=== PATIENT | female | born 1945 | race American Indian/Alaskan Native ===

== ENCOUNTER 2019-02-04 07:12 | Day surgery (SDC) | payer MEDICARE ==
[2019-02-04 08:24] LABS: INR 1.14 (0.87-1.13)
[2019-02-04 08:25] LABS: Partial Thromboplastin Time 24.7 Sec. (24.2-36.6)
[2019-02-04] MEDS ORDERED: XYLOCAINE 1% 20 mL ONE (10:16)
[2019-02-04 13:46] VITALS: BP 121/64
--- NOTE | 2019-02-04 14:13 | Ultrasound Report ---
ULTRASOUND-GUIDED PARACENTESIS INDICATION: Recurrent ascites Procedure was discussed and advanced with the patient including possible risks and benefits. Patient has had the procedure several times in the past. Patient is not on anticoagulant therapy and has no p ertinent allergies. Timeout was performed. Sonography was used to localize a suitable pocket of ascites in the right lower quadrant. Under local anesthesia and aseptic technique, this collection was accessed using a 5 [place] Yueh catheter. 4600 cc of clear yellowish ascitic fluid were withdrawn by vacuum aspiration. The catheter was removed and the site was secured. Patient tolerated the procedure well and left the department in good condition . IMPRESSION: Successful ultrasound-guided paracentesis Signer Name: Lino Mcadams MD Signed: 02/04/2019 2:08 PM Workstation Name: [id number]
== END 2019-02-04 13:30 | disposition home or self-care (01) ==
LOC: CATHLABREC 07:12 → EDSTATUS 07:30 → CATHLABREC 13:30
PROVIDERS: ATTEND Internal Medicine Gastroenterology
CPT/HCPCS: 36415; 49083; 85610; 85730

== ENCOUNTER 2019-02-09 10:07 | Emergency (ER) | payer MEDICARE ==
[2019-02-09 10:33] LABS: Basophils % (Auto) 0.7 % (0.0-1.8); Eosinophils % (Auto) 0.2 % (0.0-4.3); Hematocrit 37.2 % (30.3-42.9); Lymphocytes # (Auto) 0.9 K/mm3 (1.2-5.4); Lymphocytes % (Auto) 12.7 % (13.4-35.0); Mean Corpuscular HGB Conc 35 % (30-34); Mean Corpuscular Volume 105 fl (79-97); Monocytes # (Auto) 0.9 K/mm3 (0.0-0.8); Monocytes % (Auto) 12.4 % (0.0-7.3); Red Blood Count 3.56 M/mm3 (3.65-5.03); Red Cell Distribution Width 11.9 % (13.2-15.2)
[2019-02-09 10:37] LABS: Platelet Count 97 K/mm3 (140-440)
[2019-02-09] MEDS ORDERED: ZOFRAN IV ONE (10:37)
[2019-02-09] MEDS ORDERED: MORPHINE IV ONE (10:37)
[2019-02-09 11:02] LABS: INR 1.15 (0.87-1.13)
[2019-02-09 11:03] LABS: Alanine Aminotransferase 534 units/L (7-56); Albumin 2.9 g/dL (3.9-5); BUN/Creatinine Ratio 14; Blood Urea Nitrogen 11 mg/dL (7-17); Calcium 9.2 mg/dL (8.4-10.2); Hemolysis Index 50
[2019-02-09 11:03] LABS: Partial Thromboplastin Time 26.7 Sec. (24.2-36.6)
--- NOTE | 2019-02-09 11:03 | Emergency Department Report ---
ED Abdominal Pain HPI - General Chief Complaint: Abdominal Pain Stated Complaint: DOC ORDERED/PAIN ALL OVER Time Seen by Provider: 02/09/19 10:58 Source: patient Mode of arrival: Ambulatory Limitations: No Limitations - History of Present Illness Initial Comments: 73-year-old female with a past medical history of hepatitis C, liver cirrhosis, and umbilical hernia repair presents to the hospital with complaints of progressively worsening abdominal pain since paracentesis performed on 02/04/2019. Patient had a paracentesis performed here 5 days ago and 4600 mL of peritoneal fluid removed. Patient states she did not receive albumin and thinks that may be the cause of her pain. Patient reports the next day she developed epigastric cramping that has progressively worsened for the past 4 days. Pain is intermittent, 9/10 in intensity, and worse with palpation. No alleviating factors Cortaid. She denies nausea, vomiting, diarrhea, dysuria, fever, melena, hematochezia. She had a small bowel movement this a.m. PMD: Dr. Camargo who recently (she has not yet found a new PMD). GI doctor: Dr. Estes - Related Data Home Medications Medication Instructions Recorded Confirmed Last Taken Aspirin [Baby Aspirin] 162 mg PO QDAY 08/07/13 02/04/19 02/02/19 Atenolol [Tenormin] 25 mg PO DAILY 08/07/13 02/04/19 02/02/19 Folic Acid/Vit B Complex and C 400 mcg PO DAILY 08/07/13 02/04/19 02/02/19 [B-Complex with Vit C Caplet] Furosemide [Lasix] 20 mg PO DAILY 08/07/13 02/04/19 02/03/19 Spironolactone [Aldactone] 50 mg PO QDAY 08/07/13 02/04/19 08/06/13 Previous Rx's Medication Instructions Recorded Last Taken Type traMADol [Ultram 50 MG tab] 50 mg PO Q6HR PRN #20 tablet 02/09/19 Unknown Rx Allergies Allergy/AdvReac Type Severity Reaction Status Date / Time Sulfa (Sulfonamide Allergy Unknown Verified 08/07/13 09:05 Antibiotics) ED Review of Systems ROS: Stated complaint: DOC ORDERED/PAIN ALL OVER Other details as noted in HPI Comment: All other systems reviewed and negative ED Past Medical Hx - Past Medical History Previous Medical History?: Yes Hx Hypertension: No Hx Heart Attack/AMI: No Hx Congestive Heart Failure: No Hx Diabetes: No Hx Liver Disease: Yes (hepatitis c and ascites) Hx Asthma: No Hx COPD: No Hx HIV: No Additional medical history: atrial fib. - Surgical History Past Surgical History?: Yes Additional Surgical History: hernia repair - Social History Smoking Status: Former Smoker Substance Use Type: None - Medications Home Medications: Home Medications Medication Instructions Recorded Confirmed Last Taken Type Aspirin [Baby Aspirin] 162 mg PO QDAY 08/07/13 02/04/19 02/02/19 History Atenolol [Tenormin] 25 mg PO DAILY 08/07/13 02/04/19 02/02/19 History Folic Acid/Vit B Complex and C 400 mcg PO DAILY 08/07/13 02/04/19 02/02/19 History [B-Complex with Vit C Caplet] Furosemide [Lasix] 20 mg PO DAILY 08/07/13 02/04/19 02/03/19 History Spironolactone [Aldactone] 50 mg PO QDAY 08/07/13 02/04/19 08/06/13 History traMADol [Ultram 50 MG tab] 50 mg PO Q6HR PRN #20 tablet 02/09/19 Unknown Rx ED Physical Exam - General Limitations: No Limitations - Other Other exam information: General: No limitations, patient is alert in no acute distress Head exam: Atraumatic, normocephalic Eyes exam: Normal appearance ENT: Moist mucous membrane Neck exam: Normal inspection, full range of motion, no meningismus nontender Respiratory exam: Clear to auscultation bilateral, no wheezes, rales, crackles Cardiovascular: Normal rate and rhythm, normal heart sounds Abdomen: Soft, just to the right of the epigastric area there is a tender subcutaneous nodule versus hernia on palpation that reproduces patient's pain during palpation, with normal bowel sounds, no rebound, or guarding. Midline vertical abd scar from previous umbilical hernia surgery Extremity: Full range of motion normal inspection no deformity, no edema Back: Normal Inspection, full range of motion, no tenderness Neurologic: Alert, oriented x3, cranial nerves intact, no motor or sensory deficit Psychiatric: normal affect, normal mood Skin: Warm, dry, intact ED Course Vital Signs 02/09/19 02/09/19 10:12 11:04 Temperature 99.4 F Pulse Rate 92 H Respiratory 16 22 Rate Blood Pressure 148/85 O2 Sat by Pulse 99 97 Oximetry - Consultations Consultation #1: 02/09/19 13:0 This case was discussed with GI doctor Dr. Mejía who was able to review P my records. Patient was admitted to [facility] early January 16 after presenting for abdominal distention and ascites. Patient did receive paracentesis, and CT scan showed liver lesions at the time. A she received in-house oncology consult with recommended inpatient MRI. Patient declined inpatient MRI and never follow-up for her one-week appointment. She was also referred to the hepatocellular cl inic at [facility] for specialized care. It is documented in the medical record that the clinic has repeatedly reach out to the patient and noted to schedule an appointment and MRI. Patient was out of town and never gave a timeline to schedule an appointment for follow-up. Josef Mejía recommends the patient continue outpatient follow-up Patient admits that she refuses inpatient MRI and has not followed up like she was directed. She has all the contact information for her referral. She was encouraged to contact them on Monday to begin a workup for possible hepatocellular cancer. Tramadol will be prescribed for pain. She declined repeated offers for pain medication in the ED stating that pain is mild at this time. ED Medical Decision Making - Lab Data Result diagrams: 02/09/19 10:20 02/09/19 10:20 Lab Results 02/09/19 02/09/19 02/09/19 Range/Units 10:20 10:20 10:34 WBC 7.0 (4.5-11.0) K/mm3 RBC 3.56 L (3.65-5.03) M/mm3 Hgb 13.0 (10.1-14.3) gm/dl Hct 37.2 (30.3-42.9) % MCV 105 H (79-97) fl MCH 37 H (28-32) pg MCHC 35 H (30-34) % RDW 11.9 L (13.2-15.2) % Plt Count 97 L (140-440) K/mm3 Lymph % (Auto) 12.7 L (13.4-35.0) % [place] % (Auto) 12.4 H (0.0-7.3) % Eos % (Auto) 0.2 (0.0-4.3) % Baso % (Auto) 0.7 (0.0-1.8) % Lymph # 0.9 L (1.2-5.4) K/mm3 [place] # 0.9 H (0.0-0.8) K/mm3 Eos # 0.0 (0.0-0.4) K/mm3 Baso # 0.0 (0.0-0.1) K/mm3 Seg Neutrophils % 74.0 H (40.0-70.0) % Seg Neutrophils # 5.2 (1.8-7.7) K/mm3 PT 14.4 (12.2-14.9) Sec. INR 1.15 H (0.87-1.13) APTT 26.7 (24.2-36.6) Sec. Sodium 133 L (137-145) mmol/L Potassium 4.8 (3.6-5.0) mmol/L Chloride 99.5 (98-107) mmol/L Carbon Dioxide 24 (22-30) mmol/L Anion Gap 14 mmol/L BUN 11 (7-17) mg/dL Creatinine 0.8 (0.7-1.2) mg/dL Estimated GFR > 60 ml/min BUN/Creatinine Ratio 14 % Glucose 219 H (65-100) mg/dL Calcium 9.2 (8.4-10.2) mg/dL Total Bilirubin 2.00 H (0.1-1.2) mg/dL AST 461 H (5-40) units/L ALT 534 H (7-56) units/L Alkaline Phosphatase 113 (35-129) units/L Total Protein 6.7 (6.3-8.2) g/dL Albumin 2.9 L (3.9-5) g/dL Albumin/Globulin Ratio 0.8 % Lipase 126 H (13-60) units/L - Radiology Data Radiology results: report reviewed CT ABDOMEN AND PELVIS WITH IV CONTRAST, 02/09/2019 INDICATION: Generalized abdominal pain and ascites. TECHNIQUE: Following the administration of intravenous contrast, multiple axial CT images of the abdomen and pelvis were acquired. Sagittal and coronal reformats were obtained. All CT performed at this facility utilize dose reduction techniques including automated exposure control, iterative reconstruction and weight based dosing when appropriate to reduce patient radiation dose to as low as reasonably achievable. COMPARISON: The patient's prior CT of the abdomen and pelvis was unable to be retrieved from the archives for review. Therefore, no prior studies are available for comparison. FINDINGS: Limited imaging of the bilateral lung bases demonstrates a pleural-based mass at the right lateral lung base measuring 3.5 cm. Abdomen: The liver has a diffusely nodular, irregular cirrhotic configuration with innumerable hypodense regions throughout large volume ascites is present throughout the abdomen. The spleen is enlarged. The gallbladder appears within normal limits. The pancreas appears grossly normal. Bilateral adrenal glands and bilateral kidneys show no definitive evidence of acute abnormality. There is no definitive evidence for bowel obstruction. There is dense atherosclerotic calcification along the abdominal aorta without evidence for aneurysm. Pelvis: Large volume ascites is seen within the pelvis. The uterus contains multiple calcified fibroids. The urinary bladder appears grossly normal. Review of bony structures shows no evidence of acute bony abnormality. There are degenerative changes throughout the lumbar spine. IMPRESSION: 1. Large-volume abdominopelvic ascites. 2. Cirrhotic configuration with the liver with innumerable low density lesions. It would be difficult to exclude the possibility of an infiltrative process such as hepatocellular carcinoma. No prior studies were available for comparison at the time of my review. Please correlate with any prior imaging and patient's clinical information. 3. Splenomegaly. 4. Pleural-based right lung mass. - Medical Decision Making CT concerning for hepatocellular carcinoma. This was identified earlier this month the patient has not followed up to complete her outpatient workup. She has resources that were provided from her previous admission at [facility]. She was encouraged to contact the hepatocellular clinic in [facility] tomorrow to schedule an appointment to continue her workup. Tramadol provided for pain. - Differential Diagnosis hernia, subcutaneous nodule, biliary colic, PUD, infection Critical Care Time: No Critical care attestation.: If time is entered above; I have spent that time in minutes in the direct care of this critically ill patient, excluding procedure time. ED Disposition Clinical Impression: Liver masses, Hepatitis C, Cirrhosis, Ascites Disposition: - TO HOME OR SELFCARE Is pt being admited?: No Does the pt Need Aspirin: No Condition: Stable Instructions: Ascites (ED), Cirrhosis (ED), Liver Cancer (ED) Additional Instructions: It is very important that you follow up as directed with the resources previously provided for hepatocellular carcinoma clinic at [facility]. CAT scan shows multiple liver lesions/masses that could represent liver cancer. You will need further outpatient testing to confirm this diagnosis. Take the medication as prescribed. Return if symptoms worsen as indicated by your discharge instructions. Prescriptions: traMADol [Ultram 50 MG tab] 50 mg PO Q6HR PRN #20 tablet PRN Reason: Pain Referrals: hepatocellular cancer clinic, [facility] [Other] - 02/11/19 (call to schedule your follow up appointment) Time of Disposition: 13:15
--- NOTE | 2019-02-09 12:43 | Cat Scan Report ---
CT ABDOMEN AND PELVIS WITH IV CONTRAST, 02/09/2019 INDICATION: Generalized abdominal pain and ascites. TECHNIQUE: Following the administration of intravenous contrast, multiple axial CT images of the abdo men and pelvis were acquired. Sagittal and coronal reformats were obtained. All CT performed at this facility utilize dose reduction techniques including automated exposure control, iterative reconstru ction and weight based dosing when appropriate to reduce patient radiation dose to as low as reasonab ly achievable. COMPARISON: The patient's prior CT of the abdomen and pelvis was unable to be retrieved from the [facility] for review. Therefore, no prior studies are available for comparison. FINDINGS: Limited imaging of the bilateral lung bases demonstrates a pleural-based mass at the right lateral franklyn ng base measuring 3.5 cm. Abdomen: The liver has a diffusely nodular, irregular cirrhotic configuration with innumerable hypode nse regions throughout large volume ascites is present throughout the abdomen. The spleen is enlarged . The gallbladder appears within normal limits. The pancreas appears grossly normal. Bilateral adrena l glands and bilateral kidneys show no definitive evidence of acute abnormality. There is no definiti ve evidence for bowel obstruction. There is dense atherosclerotic calcification along the abdominal a [place] without evidence for aneurysm. Pelvis: Large volume ascites is seen within the pelvis. The uterus contains multiple calcified fibroi ds. The urinary bladder appears grossly normal. Review of bony structures shows no evidence of acute bony abnormality. There are degenerative changes throughout the lumbar spine. IMPRESSION: 1. Large-volume abdominopelvic ascites. 2. Cirrhotic configuration with the liver with innumerable low density lesions. It would be difficult to exclude the possibility of an infiltrative process such as hepatocellular carcinoma. No prior lamonte dies were available for comparison at the time of my review. Please correlate with any prior imaging and patient's clinical information. 3. Splenomegaly. 4. Pleural-based right lung mass. Signer Name: Meghann Malave MD Signed: 02/09/2019 12:39 PM Workstation Name: [id number]
[2019-02-09 13:35] VITALS: BP 116/65
== END 2019-02-09 13:50 | disposition home or self-care (01) ==
LOC: ED 10:07
DX: K74.60 Unspecified cirrhosis of liver (principal); R18.8 Other ascites; B19.20 Unspecified viral hepatitis C without hepatic coma; R16.0 Hepatomegaly, not elsewhere classified; I48.91 Unspecified atrial fibrillation; Z79.01 Long term (current) use of anticoagulants; Z87.891 Personal history of nicotine dependence; Z79.899 Other long term (current) drug therapy; Z88.2 Allergy status to sulfonamides
CPT/HCPCS: 36415; 74177; 80053; 83690; 85025; 85610; 85730; 99284; Q9967

== ENCOUNTER 2019-02-25 09:12 | Day surgery (SDC) | payer MEDICARE ==
[2019-02-25] MEDS ORDERED: ALBURX 25% (ALBUMIN) IV PRN (12:14)
--- NOTE | 2019-02-25 12:14 | Short Stay Summary ---
Short Stay Documentation Date of service: 02/25/19 Narrative H&P: hepatitis C - History Principal diagnosis: ascites Past Medical History: liver disease - Allergies and Medications Current Medications: Allergies Sulfa (Sulfonamide Antibiotics) Allergy (Verified 08/07/13 09:05) Unknown Home Medications Medication Instructions Recorded Confirmed Last Taken Type Aspirin [Baby Aspirin] 162 mg PO QDAY 08/07/13 02/04/19 02/02/19 History Atenolol [Tenormin] 25 mg PO DAILY 08/07/13 02/04/19 02/02/19 History Folic Acid/Vit B Complex and C 400 mcg PO DAILY 08/07/13 02/04/19 02/02/19 History [B-Complex with Vit C Caplet] Furosemide [Lasix] 20 mg PO DAILY 08/07/13 02/04/19 02/03/19 History Spironolactone [Aldactone] 50 mg PO QDAY 08/07/13 02/04/19 08/06/13 History traMADol [Ultram 50 MG tab] 50 mg PO Q6HR PRN #20 tablet 02/09/19 Unknown Rx - Physical exam General appearance: no acute distress Gastrointestinal: tenderness, distended - Brief post op/procedure progress note Date of procedure: 02/25/19 Pre-op diagnosis: ascites Post-op diagnosis: same Procedure: us paracentesis Anesthesia: local Findings: wolf ascites Surgeon: ISAAC RECIO Estimated blood loss: none Pathology: list (120cc) Specimen disposition: to lab Condition: stable - Disposition Condition at discharge: Good Disposition: DC-01 TO HOME OR SELFCARE Short Stay Discharge Plan Follow up with: RICA FALCON MD [Primary Care Provider] - 7 Days
--- NOTE | 2019-02-25 13:40 | Ultrasound Report ---
ULTRASOUND-GUIDED PARACENTESIS HISTORY: Cirrhosis. Hepatitis C. Ascites. PROCEDURE: The risks (including but not limited to bleeding, infection, and bowel injury) and benefi ts were explained to the patient and informed consent was obtained. A time out procedure was perform ed. Ultrasound was used to evaluate the abdomen and locate the largest ascites fluid pocket. Once the sk in was marked, the procedure site was prepped and draped in the usual sterile fashion and lidocaine w as used for local anesthesia. A skin gonsalo was made and a 5 Italian centesis catheter was placed. The patient was monitored closely throughout the procedure, and a total of 5800 mL of clear yellow fluid was aspirated. Samples were sent to the lab for further evaluation per the primary clinicians order s. The patient tolerated the procedure well with no complications. IMPRESSION: Successful ultrasound-guided paracentesis as described. Signer Name: Rich Red Jr, MD Signed: 02/25/2019 1:36 PM Workstation Name: [id number]
[2019-02-25 14:44] VITALS: BP 104/54
[2019-02-26 10:53] LABS: Total Cells Counted 100 /mm3
== END 2019-02-25 15:47 | disposition home or self-care (01) ==
LOC: CATHLABREC 09:12
PROVIDERS: ATTEND Internal Medicine Gastroenterology
DX: K70.31 Alcoholic cirrhosis of liver with ascites (principal); B19.20 Unspecified viral hepatitis C without hepatic coma; D69.6 Thrombocytopenia, unspecified; Z98.891 History of uterine scar from previous surgery; Z98.890 Other specified postprocedural states; Z88.2 Allergy status to sulfonamides; Z79.82 Long term (current) use of aspirin; Z79.899 Other long term (current) drug therapy; Z87.891 Personal history of nicotine dependence
CPT/HCPCS: 49083; 88112; 88305; 89051; 96365; P9047

== ENCOUNTER 2019-04-01 08:47 | Day surgery (SDC) | payer MEDICARE ==
[2019-04-01 09:50] LABS: INR 1.13 (0.87-1.13)
[2019-04-01] MEDS ORDERED: ALBURX 25% (ALBUMIN) IV ONE (11:35)
[2019-04-01] MEDS ORDERED: ALBURX 25% (ALBUMIN) IV PRN (11:46)
--- NOTE | 2019-04-01 11:46 | Short Stay Summary ---
Short Stay Documentation Date of service: 04/01/19 - History Principal diagnosis: ascites - Allergies and Medications Current Medications: Allergies Sulfa (Sulfonamide Antibiotics) Allergy (Verified 08/07/13 09:05) Unknown Home Medications Medication Instructions Recorded Confirmed Last Taken Type Aspirin [Baby Aspirin] 162 mg PO QDAY 08/07/13 04/01/19 03/31/19 History 162mg Atenolol [Tenormin] 25 mg PO DAILY 08/07/13 04/01/19 03/31/19 History 25mg Folic Acid/Vit B Complex and C 400 mcg PO DAILY 08/07/13 04/01/19 03/31/19 History [B-Complex with Vit C Caplet] 400mcg Furosemide [Lasix] 20 mg PO DAILY 08/07/13 04/01/19 03/31/19 History 20mg Spironolactone [Aldactone] 50 mg PO QDAY 08/07/13 04/01/19 03/31/19 History 50mg traMADol [Ultram 50 MG tab] 50 mg PO Q6HR PRN #20 tablet 02/09/19 04/01/19 03/31/19 Rx 50mg Active Medications Albumin Human (Alburx 25% (Albumin)) 50 gm IV ONCE ONE Stop: 04/01/19 11:36 - Physical exam General appearance: no acute distress Gastrointestinal: distended - Brief post op/procedure progress note Date of procedure: 04/01/19 Pre-op diagnosis: ascites Post-op diagnosis: same Procedure: US paracentesis Anesthesia: local Findings: moderate to large ascites Surgeon: ISAAC RECIO Estimated blood loss: none Pathology: list (120cc) Specimen disposition: to lab Condition: stable - Hospital course Hospital course: uneventful - Disposition Condition at discharge: Good Disposition: DC-01 TO HOME OR SELFCARE Short Stay Discharge Plan Follow up with: RICA FALCON MD [Primary Care Provider] - 7 Days
--- NOTE | 2019-04-01 11:54 | Ultrasound Report ---
ULTRASOUND-GUIDED PARACENTESIS HISTORY: ascites. PROCEDURE: The risks (including but not limited to bleeding, infection, and bowel injury) and benefi ts were explained to the patient and informed consent was obtained. A time out procedure was perform ed. Ultrasound was used to evaluate the abdomen and locate the largest ascites fluid pocket. Once the sk in was marked, the procedure site was prepped and draped in the usual sterile fashion and lidocaine w as used for local anesthesia. A skin gonsalo was made and a 5 Pakistani centesis catheter was placed. The patient was monitored closely throughout the procedure, and a total of 7200 mL of clear yellow fluid was aspirated. Samples were sent to the lab for further evaluation per the primary clinicians order s. The patient tolerated the procedure well with no complications. IMPRESSION: Successful ultrasound-guided paracentesis as described. Signer Name: Rich Red Jr, MD Signed: 04/01/2019 11:49 AM Workstation Name: [id number]
[2019-04-01 12:32] VITALS: BP 111/54
[2019-04-01 22:10] LABS: Total Cells Counted 100 /mm3
== END 2019-04-01 13:00 | disposition home or self-care (01) ==
LOC: CATHLABREC 08:47 → EDSTATUS 09:00 → CATHLABREC 13:00
PROVIDERS: ATTEND Internal Medicine Gastroenterology
DX: K70.31 Alcoholic cirrhosis of liver with ascites (principal); D69.6 Thrombocytopenia, unspecified; J40 Bronchitis, not specified as acute or chronic; Z79.82 Long term (current) use of aspirin; Z88.2 Allergy status to sulfonamides; Z79.899 Other long term (current) drug therapy; Z87.891 Personal history of nicotine dependence; Z98.891 History of uterine scar from previous surgery; Z98.890 Other specified postprocedural states
CPT/HCPCS: 36415; 49083; 82040; 85610; 87116; 88112; 88305; 89051; 96365; P9047

== ENCOUNTER 2019-04-17 07:14 | Inpatient (IN) | payer MEDICARE ==
[2019-04-17] MEDS ORDERED: PANTOPRAZOLE 40 MG INJ IV ONE (07:41)
--- NOTE | 2019-04-17 07:47 | Emergency Department Report ---
ED GI Bleed HPI - General Chief complaint: Abdominal Pain Stated complaint: PASSING BLOOD CLOTS Time Seen by Provider: 04/17/19 07:23 Source: patient, family, old records reviewed Mode of arrival: Wheelchair Limitations: No Limitations - History of Present Illness Initial comments: 73-year-old female with a past medical history of hepatitis C, liver cirrhosis, and umbilical hernia repair presents to the hospital with complaints of abdominal distention and GI bleed. Patient has recurrent abdominal ascites requiring monthly paracentesis. Last paracentesis was performed April 01. Patient was scheduled for repeat paracentesis today. She has had dark stools the last 2 days and had 1 episode of maroon colored bloody vomitus in route to the hospital. Patient denies history of GI bleed. She takes aspirin 81 mg daily and denies other blood thinners or anticoagulant use. Patient complains of abdominal distention and pain which is ongoing. Patient denies fever. As per medical record I saw patient in January and she had a CT performed that was suggestive of hepatocellular carcinoma. This was diagnosed previously by another hospital and patient was to follow up with [facility]. GI doctor is Dr. Estes. No previous endoscopy on record here - Related Data Home Medications Medication Instructions Recorded Confirmed Last Taken Aspirin [Baby Aspirin] 162 mg PO QDAY 08/07/13 04/01/19 03/31/19 162 mg Atenolol [Tenormin] 25 mg PO DAILY 08/07/13 04/01/19 03/31/19 25 mg Folic Acid/Vit B Complex and C 400 mcg PO DAILY 08/07/13 04/01/19 03/31/19 [B-Complex with Vit C Caplet] 400 mcg Furosemide [Lasix] 20 mg PO DAILY 08/07/13 04/01/19 03/31/19 20 mg Spironolactone [Aldactone] 50 mg PO QDAY 08/07/13 04/01/19 03/31/19 50 mg Previous Rx's Medication Instructions Recorded Last Taken Type traMADol [Ultram 50 MG tab] 50 mg PO Q6HR PRN #20 tablet 02/09/19 03/31/19 Rx 50 mg Allergies Allergy/AdvReac Type Severity Reaction Status Date / Time Sulfa (Sulfonamide Allergy Unknown Verified 08/07/13 09:05 Antibiotics) ED Review of Systems ROS: Stated complaint: PASSING BLOOD CLOTS Other details as noted in HPI Comment: All other systems reviewed and negative ED Past Medical Hx - Past Medical History Hx Hypertension: No Hx Heart Attack/AMI: No Hx Congestive Heart Failure: No Hx Diabetes: No Hx Liver Disease: Yes (hepatitis c and ascites) Hx Asthma: No Hx COPD: No Hx HIV: No Additional medical history: atrial fib. - Surgical History Additional Surgical History: hernia repair - Social History Smoking Status: Former Smoker - Medications Home Medications: Home Medications Medication Instructions Recorded Confirmed Last Taken Type Aspirin [Baby Aspirin] 162 mg PO QDAY 08/07/13 04/01/19 03/31/19 History 162 mg Atenolol [Tenormin] 25 mg PO DAILY 08/07/13 04/01/19 03/31/19 History 25 mg Folic Acid/Vit B Complex and C 400 mcg PO DAILY 08/07/13 04/01/19 03/31/19 History [B-Complex with Vit C Caplet] 400 mcg Furosemide [Lasix] 20 mg PO DAILY 08/07/13 04/01/19 03/31/19 History 20 mg Spironolactone [Aldactone] 50 mg PO QDAY 08/07/13 04/01/19 03/31/19 History 50 mg traMADol [Ultram 50 MG tab] 50 mg PO Q6HR PRN #20 tablet 02/09/19 04/01/19 03/31/19 Rx 50 mg ED Physical Exam - General Limitations: No Limitations - Other Other exam information: Gen.: No acute distress Head: Atraumatic Eyes: icteric scleara ENT: Moist mucous membranes Neck: Normal appearance, no posterior midline tenderness, no meningismus Chest: Clear to auscultation bilaterally Cardiovascular: Regular rate and rhythm Abdomen: Distended abdomen/ascites with midline vertical lower abdominal scar, generalized tenderness Rectal: Guaiac positive black stools no gross blood, external hemorrhoids Back: Normal appearance, nontender Extremity: Full range of motion, normal appearance Neuro: Alert, clear speech, no focal motor or sensory deficit Psychiatric: Appropriate Skin: No rash ED Course Vital Signs 04/17/19 04/17/19 07:28 08:35 Temperature 97.4 F L Pulse Rate 94 H 88 Respiratory 16 16 Rate Blood Pressure 106/54 136/81 [Left] O2 Sat by Pulse 100 100 Oximetry - Consultations Consultation #1: 04/17/19 08:31 case d/w Candice with gi, they will determine if octeotride is needed ED Medical Decision Making - Lab Data Result diagrams: 04/17/19 07:32 04/17/19 07:32 Lab Results 04/17/19 04/17/19 04/17/19 Range/Units 07:32 07:32 07:32 WBC 11.8 H (4.5-11.0) K/mm3 RBC 2.63 L (3.65-5.03) M/mm3 Hgb 9.5 L (10.1-14.3) gm/dl Hct 27.5 L (30.3-42.9) % MCV 105 H (79-97) fl MCH 36 H (28-32) pg MCHC 35 H (30-34) % RDW 13.0 L (13.2-15.2) % Plt Count 164 (140-440) K/mm3 PT 17.7 H (12.2-14.9) Sec. INR 1.49 H (0.87-1.13) APTT 26.3 (24.2-36.6) Sec. Sodium 126 L (137-145) mmol/L Potassium 6.2 H* (3.6-5.0) mmol/L Chloride 92.5 L (98-107) mmol/L Carbon Dioxide 16 L (22-30) mmol/L Anion Gap 24 mmol/L BUN 37 H (7-17) mg/dL Creatinine 1.0 (0.7-1.2) mg/dL Estimated GFR > 60 ml/min BUN/Creatinine Ratio 37 % Glucose 176 H (65-100) mg/dL Calcium 8.7 (8.4-10.2) mg/dL Total Bilirubin 3.40 H (0.1-1.2) mg/dL AST 439 H (5-40) units/L ALT 556 H (7-56) units/L Alkaline Phosphatase 185 H (35-129) units/L Ammonia (25-60) umol/L Total Protein 5.8 L (6.3-8.2) g/dL Albumin 2.6 L (3.9-5) g/dL Albumin/Globulin Ratio 0.8 % Lipase 69 H (13-60) units/L Blood Type Antibody Screen 10/02/19 10/02/19 Range/Units 07:32 07:41 WBC (4.5-11.0) K/mm3 RBC (3.65-5.03) M/mm3 Hgb (10.1-14.3) gm/dl Hct (30.3-42.9) % MCV (79-97) fl MCH (28-32) pg MCHC (30-34) % RDW (13.2-15.2) % Plt Count (140-440) K/mm3 PT (12.2-14.9) Sec. INR (0.87-1.13) APTT (24.2-36.6) Sec. Sodium (137-145) mmol/L Potassium (3.6-5.0) mmol/L Chloride (98-107) mmol/L Carbon Dioxide (22-30) mmol/L Anion Gap mmol/L BUN (7-17) mg/dL Creatinine (0.7-1.2) mg/dL Estimated GFR ml/min BUN/Creatinine Ratio % Glucose (65-100) mg/dL Calcium (8.4-10.2) mg/dL Total Bilirubin (0.1-1.2) mg/dL AST (5-40) units/L ALT (7-56) units/L Alkaline Phosphatase (35-129) units/L Ammonia 83.0 H (25-60) umol/L Total Protein (6.3-8.2) g/dL Albumin (3.9-5) g/dL Albumin/Globulin Ratio % Lipase (13-60) units/L Blood Type O POSITIVE Antibody Screen Negative - EKG Data -: EKG Interpreted by Md EKG shows normal: sinus rhythm, ST-T waves (no stemi) - Medical Decision Making Patient presents with guaiac positive stools with reports of one episode of hematemesis prior to arrival. Patient does not require blood transfusion at this time, H&H is noticed to be decreased compared to previous value in January. Patient given Protonix bolus followed by drip. Case discussed with GI who will determine if patient requires ICU charge drip as well. Hyperkalemia noted with normal creatinine. According to lab this is not hemolyzed sample. Patient received bicarbonate, glucose, insulin, albuterol, Lasix, and calcium. Kayexalate was not provided. Patient has mild elevated ammonia level. We will allow inpatient team and GI to determine if like she dose is required at this time. Patient is hemodynamically stable in the ED and admission orders plays as per request hospitalist Dr. arnold for pt to be admitted to Dr Rosario. - Differential Diagnosis coagulopathy, varices, ulcers Critical Care Time: No Critical care attestation.: If time is entered above; I have spent that time in minutes in the direct care of this critically ill patient, excluding procedure time. ED Disposition Clinical Impression: GI bleed, Melena, Vomiting blood, Anemia, Hepatitis C, Cirrhosis, Hyperammonemia, Hyperkalemia Disposition: OP ADMIT IP TO THIS HOSP Is pt being admited?: Yes Condition: Stable Time of Disposition: 08:44 (Dr Bell/hosp)
[2019-04-17 07:54] LABS: Hematocrit 27.5 % (30.3-42.9); Hemoglobin 9.5 gm/dl (10.1-14.3); Mean Corpuscular HGB Conc 35 % (30-34); Mean Corpuscular Volume 105 fl (79-97); Platelet Count 164 K/mm3 (140-440); Red Blood Count 2.63 M/mm3 (3.65-5.03)
[2019-04-17 08:06] LABS: INR 1.49 (0.87-1.13)
[2019-04-17 08:07] LABS: Partial Thromboplastin Time 26.3 Sec. (24.2-36.6)
[2019-04-17 08:17] LABS: Alanine Aminotransferase 556 units/L (7-56); Albumin 2.6 g/dL (3.9-5); BUN/Creatinine Ratio 37; Blood Urea Nitrogen 37 mg/dL (7-17); Calcium 8.7 mg/dL (8.4-10.2); Hemolysis Index 74
[2019-04-17] MEDS: PANTOPRAZOLE 80 MG in SODIUM CHLORIDE 0.9% 100 ML IV SCH ×2 (08:34→22:39)
[2019-04-17] MEDS ORDERED: DEXTROSE 50% IN WATER (25GM) 50 ML VIAL IV ONE (08:35)
[2019-04-17] MEDS ORDERED: INSULIN REGULAR, HUMAN 100 UNITS/1 ML IV ONE (08:36)
[2019-04-17] MEDS ORDERED: SODIUM BICARB 8.4% 50 MEQ/50 ML SYRINGE IV ONE (08:36)
[2019-04-17] MEDS ORDERED: ALBUTEROL 2.5 MG/3 ML NEBU IH ONE (08:38)
[2019-04-17] MEDS ORDERED: FUROSEMIDE 40 MG/4 ML INJ IV ONE (08:38)
[2019-04-17 08:50] LABS: Band Neutrophils # (Manual) 0.1 K/mm3; Basophils % (Manual) 0 % (0.0-1.8); Eosinophils % (Manual) 0 % (0.0-4.3); Total Cells Counted 100
[2019-04-17 08:54] LABS: Target Cells Few
[2019-04-17 08:55] LABS: Burr Cells Rare
[2019-04-17 08:56] LABS: Large Platelets Few; Platelet Estimate Consistent w Auto
[2019-04-17] MEDS ORDERED: DEXTROSE 50% IN WATER (25GM) 50 ML SYRINGE IV ONE (09:00)
[2019-04-17] MEDS ORDERED: CALCIUM GLUCONATE 1,000 MG in SODIUM CHLORIDE 0.9% 100 ML IV ONE (09:00)
--- NOTE | 2019-04-17 09:16 | Gastroenterology Consultation ---
History of Present Illness - Reason for Consult Consult date: 04/17/19 GI bleed Requesting physician: ADAN SNOW - History of Present Illness Patient is a 73 y/o female who was presented to ED with c/o vomiting blood and abdominal distention to which GI has been consulted. 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 There is also suspicion that she has hepatocellular carcinoma due to liver lesion seen on CT during a prior hospitalization at [facility] 01/2019 for worsening ascites with AFP just last week on 04/13/19 >800. She has an outpatient MRI scheduled 04/19/2019 for further evaluation and has been referred to [facility] for further evaluation but has not followed up with their service or with oncology as previously recommended. This morning patient was resting on stretcher in ED w/o acute distress and family at bedside. She reports multiple episodes of black stool that began overnight along with 1 episode of vomiting dark maroon blood on her way to ED this am. Admits to generalized abd discomfort/fullness associated with ascites but denies fever, CP, SOB, hematochezia, diarrhea, or constipation. Takes daily ASA at home but no other blood thinning medications. No prior EGD. Has quit drinking alcohol completely. Of note, there is a Fhx of her sister with esophageal CA per office chart review. PMH significant for Afib. Past History Past Medical History: other (as per HPI) Past Surgical History: hernia repair Social history: other (former smoker; former ETOH abuse (not actively drinking)) Family history: other (esophageal CA-sister) Medications and Allergies Allergies Allergy/AdvReac Type Severity Reaction Status Date / Time Sulfa (Sulfonamide Allergy Unknown Verified 08/07/13 09:05 Antibiotics) Home Medications Medication Instructions Recorded Confirmed Last Taken Type Aspirin [Baby Aspirin] 162 mg PO QDAY 08/07/13 04/01/19 03/31/19 History 162 mg Atenolol [Tenormin] 25 mg PO DAILY 08/07/13 04/01/19 03/31/19 History 25 mg Folic Acid/Vit B Complex and C 400 mcg PO DAILY 08/07/13 04/01/19 03/31/19 His tory [B-Complex with Vit C Caplet] 400 mcg Furosemide [Lasix] 20 mg PO DAILY 08/07/13 04/01/19 03/31/19 History 20 mg Spironolactone [Aldactone] 50 mg PO QDAY 08/07/13 04/01/19 03/31/19 History 50 mg traMADol [Ultram 50 MG tab] 50 mg PO Q6HR PRN #20 tablet 02/09/19 04/01/19 Rx 50 mg Active Meds: Active Medications Pantoprazole Sodium 80 mg/ (Sodium Chloride) 100 mls @ 10 mls/hr IV DIRECT TIFFANY Last Admin: 04/17/19 08:34 Dose: 8 mg/hr, 10 mls/hr Documented by: medications reviewed/updated as required Review of Systems - Review of Systems All systems: negative Gastrointestinal: abdominal pain (distention), hematemesis, melena Exam - Constitutional Vital Signs: Temp Pulse Resp BP Pulse Ox 97.4 F L 94 H 28 H 136/81 100 04/17/19 07:28 04/17/19 08:51 04/17/19 08:51 04/17/19 08:35 04/17/19 08:35 General appearance: no acute distress - EENT Eyes: PERRL, EOM intact ENT: hearing intact - Respiratory Respiratory effort: normal Respiratory: bilateral: CTA (anterior) - Cardiovascular Rhythm: regular - Gastrointestinal General gastrointestinal: Present: soft, non-tender, distended (ascites), normal bowel sounds - Neurologic Neurological: alert and oriented x3 - Labs CBC & Chem 7: 04/17/19 07:32 04/17/19 07:32 Lab Results: Laboratory Results - last 24 hr 04/17/19 04/17/19 04/17/19 07:32 07:32 07:32 WBC 11.8 H RBC 2.63 L Hgb 9.5 L Hct 27.5 L MCV 105 H MCH 36 H MCHC 35 H RDW 13.0 L Plt Count 164 Add Manual Diff Complete Total Counted 100 Seg Neuts % (Manual) 84.0 H Band Neutrophils % 1.0 Lymphocytes % (Manual) 6.0 L Reactive Lymphs % (Man) 0 Monocytes % (Manual) 9.0 H Eosinophils % (Manual) 0 Basophils % (Manual) 0 Metamyelocytes % 0 Myelocytes % 0 Promyelocytes % 0 Blast Cells % 0 Nucleated RBC % Not Reportable Seg Neutrophils # Man 9.9 H Band Neutrophils # 0.1 Lymphocytes # (Manual) 0.7 L Abs React Lymphs (Man) 0.0 Monocytes # (Manual) 1.1 H Eosinophils # (Manual) 0.0 Basophils # (Manual) 0.0 Metamyelocytes # 0.0 Myelocytes # 0.0 Promyelocytes # 0.0 Blast Cells # 0.0 WBC Morphology Not Reportable Hypersegmented Neuts Not Reportable Hyposegmented Neuts Not Reportable Hypogranular Neuts Not Reportable Smudge Cells Not Reportable Toxic Granulation Not Reportable Toxic Vacuolation Not Reportable Dohle Bodies Not Reportable Pelger-Huet Anomaly Not Reportable Alicia Rods Not Reportable Platelet Estimate Consistent w auto Clumped Platelets Not Reportable Plt Clumps, EDTA Not Reportable Large Platelets Few Giant Platelets Not Reportable Platelet Satelliting Not Reportable Plt Morphology Comment Not Reportable RBC Morphology Not Reportable Dimorphic RBCs Not Reportable Polychromasia Not Reportable Hypochromasia Not Reportable Poikilocytosis Not Reportable Anisocytosis Not Reportable Microcytosis Not Reportable Macrocytosis Not Reportable Spherocytes Not Reportable Pappenheimer Bodies Not Reportable Sickle Cells Not Reportable Target Cells Few Tear Drop Cells Not Reportable Ovalocytes Not Reportable Helmet Cells Not Reportable [place]wing-[place] Bodies Not Reportable Gambell Rings Not Reportable Tanya Cells Rare Bite Cells Not Reportable Crenated Cell Not Reportable Elliptocytes Not Reportable Acanthocytes (Spur) Not Reportable Rouleaux Not Reportable Hemoglobin C Crystals Not Reportable Schistocytes Not Reportable Malaria parasites Not Reportable David Bodies Not Reportable Hem Pathologist Commnt No PT 17.7 H INR 1.49 H APTT 26.3 Sodium 126 L Potassium 6.2 H* Chloride 92.5 L Carbon Dioxide 16 L Anion Gap 24 BUN 37 H Creatinine 1.0 Estimated GFR > 60 BUN/Creatinine Ratio 37 Glucose 176 H Calcium 8.7 Total Bilirubin 3.40 H AST 439 H ALT 556 H Alkaline Phosphatase 185 H Ammonia Total Protein 5.8 L Albumin 2.6 L Albumin/Globulin Ratio 0.8 Lipase 69 H Blood Type Antibody Screen 04/17/19 04/17/19 07:32 07:41 WBC RBC Hgb Hct MCV MCH MCHC RDW Plt Count Add Manual Diff Total Counted Seg Neuts % (Manual) Band Neutrophils % Lymphocytes % (Manual) Reactive Lymphs % (Man) Monocytes % (Manual) Eosinophils % (Manual) Basophils % (Manual) Metamyelocytes % Myelocytes % Promyelocytes % Blast Cells % Nucleated RBC % Seg Neutrophils # Man Band Neutrophils # Lymphocytes # (Manual) Abs React Lymphs (Man) Monocytes # (Manual) Eosinophils # (Manual) Basophils # (Manual) Metamyelocytes # Myelocytes # Promyelocytes # Blast Cells # WBC Morphology Hypersegmented Neuts Hyposegmented Neuts Hypogranular Neuts Smudge Cells Toxic Granulation Toxic Vacuolation Dohle Bodies Pelger-Huet Anomaly Alicia Rods Platelet Estimate Clumped Platelets Plt Clumps, EDTA Large Platelets Giant Platelets Platelet Satelliting Plt Morphology Comment RBC Morphology Dimorphic RBCs Polychromasia Hypochromasia Poikilocytosis Anisocytosis Microcytosis Macrocytosis Spherocytes Pappenheimer Bodies Sickle Cells Target Cells Tear Drop Cells Ovalocytes Helmet Cells Ewing-[place] Bodies Gambell Rings Tanya Cells Bite Cells Crenated Cell Elliptocytes Acanthocytes (Spur) Rouleaux Hemoglobin C Crystals Schistocytes Malaria parasites David Bodies Hem Pathologist Commnt PT INR APTT Sodium Potassium Chloride Carbon Dioxide Anion Gap BUN Creatinine Estimated GFR BUN/Creatinine Ratio Glucose Calcium Total Bilirubin AST ALT Alkaline Phosphatase Ammonia 83.0 H Total Protein Albumin Albumin/Globulin Ratio Lipase Blood Type O POSITIVE Antibody Screen Negative Assessment and Plan 1.UGIB 2.cirrhosis 3.ascites 4.liver lesion (likely HCC) -afebrile -plt 164; INR 149 -LFTs-T.teresa 3.40, AST 439, ALT 556, alk phos 185 -BUN 37; creat WNL -H/H 9.5/27.5-trending down -continue to monitor H/H and transfuse as needed- hold blood thinning me dications -patient reports multiple episodes of black stools since yesterday and 1 episode of vomiting dark maroon blood this am -currently HD stable -etiology-patient with hx of 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 She also has a liver lesion seen on CT at [facility] 01/2019 suspicious for HCC (AFP last week 04/13/19 >800; outpatient MRI ordered/pending for 04/19/19; has not f/u with [facility] or oncology as previous recommended). -will schedule for EGD today for further evaluation of bleeding (possible varices vs ulcer vs other) -Keep NPO -continue protonix drip -start on octreotine drip -start on empiric antibiotics (ceftriaxone 1gm IV daily x 7 days) -continue supportive care -further recommendations to follow EGD results
--- NOTE | 2019-04-17 09:43 | History and Physical Report ---
History of Present Illness Chief complaint: vomiting blood History of present illness: 73-year-old woman with a history of hepatitis C, liver cirrhosis who presents to the hospital complaining of abdominal distention and melena and hematemesis. The patient has been getting monthly paracentesis for chronic ascites. She was scheduled for a paracentesis today. However she had 2 dark stools and one episode of maroon-colored bloody vomit en route to the hospital -Per ER record there was concern for hepatocellular carcinoma based on CT scan in January, she was being followed at [facility]. Her GI doctor is Dr. Estes with [facility]. Past Medical History: atrial fib, hepatitis (hepatitis C and ascites.) Past Surgical History: , hernia repair Social history: , lives with family, smoking. denies: alcohol abuse, IV drug use Family history: hypertension Medications and Allergies Allergies Allergy/AdvReac Type Severity Reaction Status Date / Time Sulfa (Sulfonamide Allergy Unknown Verified 08/07/13 09:05 Antibiotics) Home Medications Medication Instructions Recorded Confirmed Last Taken Type Aspirin [Baby Aspirin] 162 mg PO QDAY 08/07/13 04/17/19 04/16/19 History Atenolol [Tenormin] 25 mg PO DAILY 08/07/13 04/17/19 04/16/19 History Folic Acid/Vit B Complex and C 400 mcg PO DAILY 08/07/13 04/17/19 04/16/19 History [B-Complex with Vit C Caplet] Furosemide [Lasix] 20 mg PO DAILY 08/07/13 04/17/19 04/16/19 History Spironolactone [Aldactone] 50 mg PO QDAY 08/07/13 04/17/19 04/16/19 History RX: traMADol [Ultram 50 MG tab] 50 mg PO Q6HR PRN #20 tablet 02/09/19 04/17/19 04/16/19 Rx RX: Omeprazole 40 mg PO QDAY 04/17/19 04/17/19 04/16/19 History Active Meds: Active Medications Pantoprazole Sodium 80 mg/ (Sodium Chloride) 100 mls @ 10 mls/hr IV DIRECT TIFFANY Last Admin: 04/17/19 08:34 Dose: 8 mg/hr, 10 mls/hr Documented by: Octreotide Acetate 500 mcg/ (Sodium Chloride) 101 mls @ 5.05 mls/hr IV TITR TIFFANY; Protocol Ceftriaxone Sodium (Rocephin/Ns 1 Gm/50 Ml) 1 gm in 50 mls @ 100 mls/hr IV Q24HR TIFFANY; Protocol Stop: 04/23/19 10:00 Sodium Chloride (Nacl 0.9% 1000 Ml) 1,000 mls @ 50 mls/hr IV DIRECT TIFFANY Review of Systems ROS unobtainable: due to mental status Exam - Physical Exam Narrative exam: General.: Mild to moderate distress, appears ill HEENT: Moist mucous membranes, extraocular muscles intact, no lymphadenopathy Neck: supple Cardiac: S1-S2 heard Lungs: clear to auscultation bilaterally Abdomen: soft , distended with shifting dullness, nontender Extremities: no edema clubbing or cyanosis Skin: no rash or lesions Neurologic: no gross focal deficits, lethargic Psych: calm, and cooperative, but confused and lethargic - Constitutional Vitals: Temp Pulse Resp BP Pulse Ox 97.4 F L 95 H 16 113/28 100 04/17/19 07:28 04/17/19 09:19 04/17/19 09:19 04/17/19 09:19 04/17/19 09:19 Results - Labs CBC & Chem 7: 04/20/19 05:33 04/20/19 05:33 Labs: Laboratory Last Values WBC 11.8 K/mm3 (4.5-11.0) H 04/17/19 07:32 RBC 2.63 M/mm3 (3.65-5.03) L 04/17/19 07:32 Hgb 9.5 gm/dl (10.1-14.3) L 04/17/19 07:32 Hct 27.5 % (30.3-42.9) L 04/17/19 07:32 MCV 105 fl (79-97) H 04/17/19 07:32 MCH 36 pg (28-32) H 04/17/19 07:32 MCHC 35 % (30-34) H 04/17/19 07:32 RDW 13.0 % (13.2-15.2) L 04/17/19 07:32 Plt Count 164 K/mm3 (140-440) 04/17/19 07:32 Add Manual Diff Complete 04/17/19 07:32 Total Counted 100 04/17/19 07:32 Seg Neuts % (Manual) 84.0 % (40.0-70.0) H 04/17/19 07:32 Band Neutrophils % 1.0 % 04/17/19 07:32 Lymphocytes % (Manual) 6.0 % (13.4-35.0) L 04/17/19 07:32 Reactive Lymphs % (Man) 0 % 04/17/19 07:32 Monocytes % (Manual) 9.0 % (0.0-7.3) H 04/17/19 07:32 Eosinophils % (Manual) 0 % (0.0-4.3) 04/17/19 07:32 Basophils % (Manual) 0 % (0.0-1.8) 04/17/19 07:32 Metamyelocytes % 0 % 04/17/19 07:32 Myelocytes % 0 % 04/17/19 07:32 Promyelocytes % 0 % 04/17/19 07:32 Blast Cells % 0 % 04/17/19 07:32 Nucleated RBC % Not Reportable 04/17/19 07:32 Seg Neutrophils # Man 9.9 K/mm3 (1.8-7.7) H 04/17/19 07:32 Band Neutrophils # 0.1 K/mm3 04/17/19 07:32 Lymphocytes # (Manual) 0.7 K/mm3 (1.2-5.4) L 04/17/19 07:32 Abs React Lymphs (Man) 0.0 K/mm3 04/17/19 07:32 Monocytes # (Manual) 1.1 K/mm3 (0.0-0.8) H 04/17/19 07:32 Eosinophils # (Manual) 0.0 K/mm3 (0.0-0.4) 04/17/19 07:32 Basophils # (Manual) 0.0 K/mm3 (0.0-0.1) 04/17/19 07:32 Metamyelocytes # 0.0 K/mm3 04/17/19 07:32 Myelocytes # 0.0 K/mm3 04/17/19 07:32 Promyelocytes # 0.0 K/mm3 04/17/19 07:32 Blast Cells # 0.0 K/mm3 04/17/19 07:32 WBC Morphology Not Reportable 04/17/19 07:32 Hypersegmented Neuts Not Reportable 04/17/19 07:32 Hyposegmented Neuts Not Reportable 04/17/19 07:32 Hypogranular Neuts Not Reportable 04/17/19 07:32 Smudge Cells Not Reportable 04/17/19 07:32 Toxic Granulation Not Reportable 04/17/19 07:32 Toxic Vacuolation Not Reportable 04/17/19 07:32 Dohle Bodies Not Reportable 04/17/19 07:32 Pelger-Huet Anomaly Not Reportable 04/17/19 07:32 Alicia Rods Not Reportable 04/17/19 07:32 Platelet Estimate Consistent w auto 04/17/19 07:32 Clumped Platelets Not Reportable 04/17/19 07:32 Plt Clumps, EDTA Not Reportable 04/17/19 07:32 Large Platelets Few 04/17/19 07:32 Giant Platelets Not Reportable 04/17/19 07:32 Platelet Satelliting Not Reportable 04/17/19 07:32 Plt Morphology Comment Not Reportable 04/17/19 07:32 RBC Morphology Not Reportable 04/17/19 07:32 Dimorphic RBCs Not Reportable 04/17/19 07:32 Polychromasia Not Reportable 04/17/19 07:32 Hypochromasia Not Reportable 04/17/19 07:32 Poikilocytosis Not Reportable 04/17/19 07:32 Anisocytosis Not Reportable 04/17/19 07:32 Microcytosis Not Reportable 04/17/19 07:32 Macrocytosis Not Reportable 04/17/19 07:32 Spherocytes Not Reportable 04/17/19 07:32 Pappenheimer Bodies Not Reportable 04/17/19 07:32 Sickle Cells Not Reportable 04/17/19 07:32 Target Cells Few 04/17/19 07:32 Tear Drop Cells Not Reportable 04/17/19 07:32 Ovalocytes Not Reportable 04/17/19 07:32 Helmet Cells Not Reportable 04/17/19 07:32 [place] Bodies Not Reportable 04/17/19 07:32 [place] Rings Not Reportable 04/17/19 07:32 [place] Cells Rare 04/17/19 07:32 Bite Cells Not Reportable 04/17/19 07:32 Crenated Cell Not Reportable 04/17/19 07:32 Elliptocytes Not Reportable 04/17/19 07:32 Acanthocytes (Spur) Not Reportable 04/17/19 07:32 Rouleaux Not Reportable 04/17/19 07:32 Hemoglobin C Crystals Not Reportable 04/17/19 07:32 Schistocytes Not Reportable 04/17/19 07:32 Malaria parasites Not Reportable 04/17/19 07:32 David Bodies Not Reportable 04/17/19 07:32 Hem Pathologist Commnt No 04/17/19 07:32 PT 17.7 Sec. (12.2-14.9) H 04/17/19 07:32 INR 1.49 (0.87-1.13) H 04/17/19 07:32 APTT 26.3 Sec. (24.2-36.6) 04/17/19 07:32 Sodium 126 mmol/L (137-145) L 04/17/19 07:32 Potassium 6.2 mmol/L (3.6-5.0) H* 04/17/19 07:32 Chloride 92.5 mmol/L (98-107) L 04/17/19 07:32 Carbon Dioxide 16 mmol/L (22-30) L 04/17/19 07:32 Anion Gap 24 mmol/L 04/17/19 07:32 BUN 37 mg/dL (7-17) H 04/17/19 07:32 Creatinine 1.0 mg/dL (0.7-1.2) 04/17/19 07:32 Estimated GFR > 60 ml/min 04/17/19 07:32 BUN/Creatinine Ratio 37 % 04/17/19 07:32 Glucose 176 mg/dL (65-100) H 04/17/19 07:32 Calcium 8.7 mg/dL (8.4-10.2) 04/17/19 07:32 Total Bilirubin 3.40 mg/dL (0.1-1.2) H 04/17/19 07:32 AST 439 units/L (5-40) H 04/17/19 07:32 ALT 556 units/L (7-56) H 04/17/19 07:32 Alkaline Phosphatase 185 units/L (35-129) H 04/17/19 07:32 Ammonia 83.0 umol/L (25-60) H 04/17/19 07:41 Total Protein 5.8 g/dL (6.3-8.2) L 04/17/19 07:32 Albumin 2.6 g/dL (3.9-5) L 04/17/19 07:32 Albumin/Globulin Ratio 0.8 % 04/17/19 07:32 Lipase 69 units/L (13-60) H 04/17/19 07:32 Blood Type O POSITIVE 04/17/19 07:32 Antibody Screen Negative 04/17/19 07:32 Assessment and Plan Assessment and plan: 73-year-old woman with history of hep C, cirrhosis, questionable history of hepatocellular carcinoma which is being worked up at outside hospital. The patient has chronic ascites who gets frequent paracentesis, last paracentesis was 04/01/2019, was due for another on day of admission. She presented with hemoptysis and melena. Vital signs, stable respiratory rate 28, heart rate of 95 Labs, hemoglobin 9, sodium 126, potassium 6.2, BUN 37, elevated LFTs noted. Albumin 2.6. Ammonia 83. Acute upper GI bleed Concern for variceal bleeding, GI consulted, hemoglobin currently stable. Management per GI PPI drip, IVF, octreotide ggt, for urgent EGD today Hepatitis C/cirrhosis/decompensated liver disease Ascites We will schedule paracentesis when patient has been stabilized from GI bleed Hepatic encephalopathy Will restart lactulose after patient has been stabilized from GI bleed Hyperkalemia Keeping strict n.p.o., therefore treats with calcium, insulin and D50 Hyponatremia likely due to chronic ascites, CLD, judicious use of IV fluids given ascites, will restart diureses when patient is improved DVT prophylaxis; SCDs and early ambulation in light of GI bleed. CCT 33 mins Advance Directives: No
[2019-04-17] MEDS ORDERED: SODIUM CHLORIDE 0.9% 1000 ML 1,000 ML IV SCH (10:00)
[2019-04-17] MEDS: OCTREOTIDE 500 MCG in SODIUM CHLORIDE 0.9% 100 ML IV SCH (10:11)
[2019-04-17] MEDS ORDERED: ONDANSETRON 4 MG/2 ML INJ IV PRN (11:00)
[2019-04-17] MEDS ORDERED: ACETAMINOPHEN 325 MG TAB PO PRN (11:00)
[2019-04-17] MEDS ORDERED: MORPHINE 2 MG/1 ML INJ IV PRN (11:00)
--- NOTE | 2019-04-17 11:07 | Anesthesia Consultation ---
Anesthesia Consult and Med Hx Date of service: 04/17/19 - Airway Anesthetic Teeth Evaluation: Poor ROM Head & Neck: Adequate Mental/Hyoid Distance: Adequate Mallampati Class: Class II Intubation Access Assessment: Good - Pre-Operative Health Status Proposed Anesthetic Plan: MAC - Pulmonary Hx Smoking: Yes (vape) Hx Asthma: No COPD: No Hx Pneumonia: No Hx Sleep Apnea: No - Cardiovascular System Hx Hypertension: No Hx Heart Attack/AMI: No - Central Nervous System Hx Seizures: No CVA: No Hx Back Pain: No Hx Psychiatric Problems: No - Gastrointestinal Hx Gastroesophageal Reflux Disease: No - Endocrine Hx Renal Disease: No Hx End Stage Renal Disease: No Hx Liver Disease: Yes (hepatitis c and ascites) Hx Insulin Dependent Diabetes: No Hx Non-Insulin Dependent Diabetes: No Hx Thyroid Disease: No Hx Hypothyroidism: No Hx Hyperthyroidism: No - Hematic Hx Anemia: No - Other Systems Hx Alcohol Use: No Hx Substance Use: No Hx Cancer: No
--- NOTE | 2019-04-17 11:08 | Anesthesia Day of Surgery ---
Anesthesia Day of Surgery - Day of Surgery Patient Examined: Yes Patient H&P Reviewed: Yes Patient is NPO: Yes Beta Blockers: Yes (atenolol)
[2019-04-17] MEDS ORDERED: LIDOCAINE MPF (2%) 20 MG/1 ML VIAL 5 ML ONE (11:30)
[2019-04-17] MEDS ORDERED: PHENYLEPHRINE/NS 1,000 MCG/10 ML SYRINGE (OR USE) IV ONE (11:30)
[2019-04-17 11:59] LABS: Bacteria,Urine 1+ /HPF (Negative); Bilirubin,Urine NEG (Negative); Blood,Urine MOD (Negative); Color,Urine Yellow (Yellow); Mucus,Urine FEW /HPF; Protein,Urine <15 mg/dL mg/dL (Negative); Urobilinogen,Urine < 2.0 mg/dL (<2.0)
--- NOTE | 2019-04-17 12:01 | Operative Report ---
Operative Report Operative Report: DOS: 04/17/2019 Endoscopist: Kuldip Schaefer MD EGD with REPORT PREOPERATIVE DIAGNOSIS and POSTOPERATIVE DIAGNOSIS: GI bleed ESTIMATED BLOOD LOSS: minimal DESCRIPTION OF PROCEDURE: A high-resolution EGD scope was passed through the oropharynx, esophagus, stomach, and second portion of duodenum. The scope was carefully withdrawn. Retroflexion was performed in the stomach. At the end of the procedure, the scope was cleaned using normal technique. Vital signs monitored continuously throughout. SEDATION: Provided by Anesthesiology Services. COMPLICATIONS: None. FINDINGS: Normal duodenum exam without any bleeding noted. A small hiatal hernia. Stomach revealed retained food and old blood in the gastric body. A complete visualization of the stomach could not done due to retained food. There was no obvious gastric varices noted. In the distal and mid esophagus, there were 3-4 columns of large esophageal varices with 1-2 columns with red spot with high risk signs. No other source of bleeding noted. An esophageal variceal banding ligation performed with a total of 5 bands placed successfully starting from the most distal location. RECOMMENDATIONS: 1. Continue with octreotide and PPI drip. 2. Monitor H/H serially. 3. Close monitoring in the ICU given high risk for decompensation. 4. Continue with ceftriaxone for empiric ppx. 5. Diagnostic paracentesis. 6. Will follow closely.
[2019-04-17] MEDS: cefTRIAXone/NS 1 GM/50 ML 1 GM/50 ML BAG IV SCH (12:10)
[2019-04-17] MEDS ORDERED: MORPHINE 4 MG/1 ML INJ IV ONE (13:24)
--- NOTE | 2019-04-17 15:47 | Post Anesthesia Evaluation ---
- Post Anesthesia Evaluation Patient Participated: Yes Airway Patent: Yes Stable Respiratory Function: Yes Nausea/Vomiting: No Temp > 96.8F: Yes Pain Manageable: Yes Adequeate Hydration: Yes Anesthesia Complications: No Block Receding Appropriately: Not Applicable Patient on Ventilator: No
[2019-04-17] MEDS ORDERED: HYDROmorphone 1 MG/1 ML INJ ONE (16:48)
[2019-04-17] MEDS: HYDROmorphone 1 MG/1 ML INJ IV PRN (17:01)
[2019-04-17 21:21] LABS: Hematocrit 31.8 % (30.3-42.9); Hemoglobin 10.7 gm/dl (10.1-14.3)
[2019-04-18 01:07] LABS: Hemoglobin 10.3 gm/dl (10.1-14.3)
[2019-04-18 04:14] LABS: Hematocrit 28.9 % (30.3-42.9); Hemoglobin 9.9 gm/dl (10.1-14.3); Mean Corpuscular HGB Conc 34 % (30-34); Mean Corpuscular Volume 106 fl (79-97); Platelet Count 158 K/mm3 (140-440); Red Blood Count 2.73 M/mm3 (3.65-5.03)
[2019-04-18 04:43] LABS: Albumin 2.8 g/dL (3.9-5); Calcium 9.2 mg/dL (8.4-10.2)
[2019-04-18] MEDS ORDERED: INSULIN REGULAR, HUMAN 100 UNITS/1 ML SUB-Q ONE (05:47)
[2019-04-18] MEDS ORDERED: SODIUM POLYSTYRENE 15 GM/60 ML ORAL LIQD PO ONE (05:48)
[2019-04-18] MEDS ORDERED: DEXTROSE 50% IN WATER (25GM) 50 ML SYRINGE IV ONE (05:48)
[2019-04-18] MEDS ORDERED: CALCIUM CHLORIDE 1,000 MG in SODIUM CHLORIDE 0.9% 100 ML IV ONE (05:51)
[2019-04-18] MEDS ORDERED: SODIUM BICARB 8.4% 50 MEQ/50 ML SYRINGE IV ONE (05:53)
[2019-04-18 06:34] LABS: Basophils % (Manual) 0 % (0.0-1.8); Eosinophils % (Manual) 0 % (0.0-4.3); Total Cells Counted 100
[2019-04-18 06:35] LABS: Anisocytosis Few; Platelet Estimate Consistent w Auto; Target Cells Rare
[2019-04-18] MEDS ORDERED: DEXTROSE 50% IN WATER (25GM) 50 ML VIAL IV SCH (08:00)
[2019-04-18] MEDS: OCTREOTIDE 500 MCG in SODIUM CHLORIDE 0.9% 100 ML IV SCH (08:18)
[2019-04-18] MEDS ORDERED: DEXTROSE 10% IN WATER 1,000 ML IV SCH (08:30)
--- NOTE | 2019-04-18 08:38 | Progress Note ---
Assessment and Plan Assessment and plan: 73-year-old woman with history of hep C, cirrhosis, questionable history of hepatocellular carcinoma which is being worked up at outside hospital. The patient has chronic ascites who gets frequent paracentesis, last paracentesis was 04/01/2019, was due for another on day of admission. She presented with hemoptysis and melena. Vital signs, stable respiratory rate 28, heart rate of 95 Labs, hemoglobin 9, sodium 126, potassium 6.2, BUN 37, elevated LFTs noted. Albumin 2.6. Ammonia 83. Acute upper GI bleed Concern for variceal bleeding, GI consulted, hemoglobin currently stable. Management per GI PPI drip, IVF, octreotide ggt, sp EGD 04/17 showed esophageal varices, they were not actively bleeding, they were banded. -Hemoglobin stable -We will need beta-michael when blood pressure can tolerate it for treatment of portal hypertension Hepatitis C/cirrhosis/decompensated liver disease Ascites We will schedule paracentesis when patient has been stabilized from GI bleed Hepatic encephalopathy Will recheck ammonia level today, and likely give rectal lactulose if patient able to tolerate it. Hyperkalemia, PINO likely due to vasomotor nephropathy Keeping strict n.p.o., therefore treats with calcium, insulin and D50 -Nephrology consult Hyponatremia likely due to chronic ascites, CLD, judicious use of IV fluids given ascites, will restart diureses when patient is improved DVT prophylaxis; SCDs and early ambulation in light of GI bleed. CCT 33 mins History Interval history: No fevers No further episodes of melena or hematemesis Patient has been moaning and groaning and appears to be complaining of abdominal pain, however it is not clear, no shortness of breath, Complaining of abdominal distention, family states that she is due for paracentesis Hospitalist Physical - Physical exam Narrative exam: General.: Mild to moderate distress, appears ill HEENT: Moist mucous membranes, extraocular muscles intact, no lymphadenopathy Neck: supple Cardiac: S1-S2 heard Lungs: clear to auscultation bilaterally Abdomen: soft , distended with shifting dullness, nontender Extremities: no edema clubbing or cyanosis Skin: no rash or lesions Neurologic: no gross focal deficits, patient moaning in pain, confused Psych: calm, and cooperative, but confused and lethargic - Constitutional Vitals: Temp Pulse Resp BP Pulse Ox 97.4 F L 93 H 21 128/69 100 04/18/19 04:00 04/18/19 06:32 04/18/19 06:00 04/18/19 06:00 04/18/19 06:00 Results - Labs CBC & Chem 7: 04/18/19 03:24 10 03:24 Labs: Laboratory Last Values WBC 13.7 K/mm3 (4.5-11.0) H 04/18/19 03:24 RBC 2.73 M/mm3 (3.65-5.03) L 04/18/19 03:24 Hgb 9.9 gm/dl (10.1-14.3) L 04/18/19 03:24 Hct 28.9 % (30.3-42.9) L 04/18/19 03:24 MCV 106 fl (79-97) H 04/18/19 03:24 MCH 36 pg (28-32) H 04/18/19 03:24 MCHC 34 % (30-34) 04/18/19 03:24 RDW 13.0 % (13.2-15.2) L 04/18/19 03:24 Plt Count 158 K/mm3 (140-440) 04/18/19 03:24 [place] % (Auto) [place] Remover 04/18/19 03:24 Add Manual Diff Complete 04/18/19 03:24 Total Counted 100 04/18/19 03:24 Seg Neuts % (Manual) 83.0 % (40.0-70.0) H 04/18/19 03:24 Band Neutrophils % 0 % 04/18/19 03:24 Lymphocytes % (Manual) 7.0 % (13.4-35.0) L 04/18/19 03:24 Reactive Lymphs % (Man) 0 % 04/18/19 03:24 Monocytes % (Manual) 10.0 % (0.0-7.3) H 04/18/19 03:24 Eosinophils % (Manual) 0 % (0.0-4.3) 04/18/19 03:24 Basophils % (Manual) 0 % (0.0-1.8) 04/18/19 03:24 Metamyelocytes % 0 % 04/18/19 03:24 Myelocytes % 0 % 04/18/19 03:24 Promyelocytes % 0 % 04/18/19 03:24 Blast Cells % 0 % 04/18/19 03:24 Nucleated RBC % Not Reportable 04/18/19 03:24 Seg Neutrophils # Man 11.4 K/mm3 (1.8-7.7) H 04/18/19 03:24 Band Neutrophils # 0.0 K/mm3 04/18/19 03:24 Lymphocytes # (Manual) 1.0 K/mm3 (1.2-5.4) L 04/18/19 03:24 Abs React Lymphs (Man) 0.0 K/mm3 04/18/19 03:24 Monocytes # (Manual) 1.4 K/mm3 (0.0-0.8) H 04/18/19 03:24 Eosinophils # (Manual) 0.0 K/mm3 (0.0-0.4) 04/18/19 03:24 Basophils # (Manual) 0.0 K/mm3 (0.0-0.1) 04/18/19 03:24 Metamyelocytes # 0.0 K/mm3 04/18/19 03:24 Myelocytes # 0.0 K/mm3 04/18/19 03:24 Promyelocytes # 0.0 K/mm3 04/18/19 03:24 Blast Cells # 0.0 K/mm3 04/18/19 03:24 WBC Morphology Not Reportable 04/18/19 03:24 Hypersegmented Neuts Not Reportable 04/18/19 03:24 Hyposegmented Neuts Not Reportable 04/18/19 03:24 Hypogranular Neuts Not Reportable 04/18/19 03:24 Smudge Cells Not Reportable 04/18/19 03:24 Toxic Granulation Not Reportable 04/18/19 03:24 Toxic Vacuolation Not Reportable 04/18/19 03:24 Dohle Bodies Not Reportable 04/18/19 03:24 Pel[place]uet Anomaly Not Reportable 04/18/19 03:24 Alicia Rods Not Reportable 04/18/19 03:24 Platelet Estimate Consistent w auto 04/18/19 03:24 Clumped Platelets Not Reportable 04/18/19 03:24 Plt Clumps, EDTA Not Reportable 04/18/19 03:24 Large Platelets Not Reportable 04/18/19 03:24 Giant Platelets Not Reportable 04/18/19 03:24 Platelet Satelliting Not Reportable 04/18/19 03:24 Plt Morphology Comment Not Reportable 04/18/19 03:24 RBC Morphology Not Reportable 04/18/19 03:24 Dimorphic RBCs Not Reportable 04/18/19 03:24 Polychromasia Not Reportable 04/18/19 03:24 Hypochromasia Not Reportable 04/18/19 03:24 Poikilocytosis Not Reportable 04/18/19 03:24 Anisocytosis Few 04/18/19 03:24 Microcytosis Not Reportable 04/18/19 03:24 Macrocytosis Not Reportable 04/18/19 03:24 Spherocytes Not Reportable 04/18/19 03:24 Pappenheimer Bodies Not Reportable 04/18/19 03:24 Sickle Cells Not Reportable 04/18/19 03:24 Target Cells Rare 04/18/19 03:24 Tear Drop Cells Not Reportable 04/18/19 03:24 Ovalocytes Not Reportable 04/18/19 03:24 Helmet Cells Not Reportable 04/18/19 03:24 [place] Bodies Not Reportable 04/18/19 03:24 [place] Rings Not Reportable 04/18/19 03:24 [place] Cells Not Reportable 04/18/19 03:24 Bite Cells Not Reportable 04/18/19 03:24 Crenated Cell Not Reportable 04/18/19 03:24 Elliptocytes Not Reportable 04/18/19 03:24 Acanthocytes (Spur) Not Reportable 04/18/19 03:24 Rouleaux Not Reportable 04/18/19 03:24 Hemoglobin C Crystals Not Reportable 04/18/19 03:24 Schistocytes Not Reportable 04/18/19 03:24 Malaria parasites Not Reportable 04/18/19 03:24 David Bodies Not Reportable 04/18/19 03:24 Hem Pathologist Commnt No 04/18/19 03:24 PT 17.7 Sec. (12.2-14.9) H 04/17/19 07:32 INR 1.49 (0.87-1.13) H 04/17/19 07:32 APTT 26.3 Sec. (24.2-36.6) 04/17/19 07:32 Sodium 129 mmol/L (137-145) L 04/18/19 03:24 Potassium 6.6 mmol/L (3.6-5.0) H* 04/18/19 03:24 Chloride 95.1 mmol/L (98-107) L 04/18/19 03:24 Carbon Dioxide 21 mmol/L (22-30) L 04/18/19 03:24 Anion Gap 20 mmol/L 04/18/19 03:24 BUN 47 mg/dL (7-17) H 04/18/19 03:24 Creatinine 1.3 mg/dL (0.7-1.2) H 04/18/19 03:24 Estimated GFR 49 ml/min 04/18/19 03:24 BUN/Creatinine Ratio 36 % 04/18/19 03:24 Glucose 191 mg/dL (65-100) H 04/18/19 03:24 POC Glucose 297 (70-105) H 04/18/19 08:21 Calcium 9.2 mg/dL (8.4-10.2) 04/18/19 03:24 Total Bilirubin 3.20 mg/dL (0.1-1.2) H 04/18/19 03:24 AST 2899 units/L (5-40) H 04/18/19 03:24 ALT 3695 units/L (7-56) H 04/18/19 03:24 Alkaline Phosphatase 280 units/L (35-129) H 04/18/19 03:24 Ammonia 83.0 umol/L (25-60) H 04/17/19 07:41 Total Protein 6.3 g/dL (6.3-8.2) 04/18/19 03:24 Albumin 2.8 g/dL (3.9-5) L 04/18/19 03:24 Albumin/Globulin Ratio 0.8 % 04/18/19 03:24 Lipase 69 units/L (13-60) H 04/17/19 07:32 Urine Color Yellow (Yellow) 04/17/19 10:50 Urine Turbidity Clear (Clear) 04/17/19 10:50 Urine pH 6.0 (5.0-7.0) 04/17/19 10:50 Ur Specific [place] 1.006 (1.003-1.030) 04/17/19 10:50 Urine Protein <15 mg/dl mg/dL (Negative) 04/17/19 10:50 Urine Glucose (UA) >=500 mg/dL (Negative) 04/17/19 10:50 Urine Ketones Neg mg/dL (Negative) 04/17/19 10:50 Urine Blood Mod (Negative) 04/17/19 10:50 Urine Nitrite Neg (Negative) 04/17/19 10:50 Urine Bilirubin Neg (Negative) 04/17/19 10:50 Urine Urobilinogen < 2.0 mg/dL (<2.0) 04/17/19 10:50 Ur Leukocyte Esterase Lg (Negative) 04/17/19 10:50 Urine WBC (Auto) 25.0 /HPF (0.0-6.0) H 04/17/19 10:50 Urine RBC (Auto) 6.0 /HPF (0.0-6.0) 04/17/19 10:50 U Epithel Cells (Auto) 1.0 /HPF (0-13.0) 04/17/19 10:50 Urine Bacteria (Auto) 1+ /HPF (Negative) 04/17/19 10:50 Urine Mucus Few /HPF 04/17/19 10:50 Blood Type O POSITIVE 04/17/19 07:32 Antibody Screen Negative 04/17/19 07:32 Active Medications - Current Medications Current Medications: Generic Name Dose Route Start Last Admin Trade Name Freq PRN Reason Stop Dose Admin Acetaminophen 650 mg 04/17/19 11:00 Tylenol PO Q4H PRN Pain MILD(1-3)/Fever >100.5/TILLMAN Dextrose 25 gm 04/18/19 08:00 D50w (25gm) Vial IV Q6H TIFFANY Hydromorphone HCl 0.25 mg 04/17/19 11:00 04/17/19 17:01 Dilaudid IV 0.25 mg Q3H PRN Administration Pain, Moderate (4-6) Pantoprazole Sodium 80 mg/ 100 mls @ 10 mls/hr 04/17/19 08:00 04/17/19 22:39 Sodium Chloride IV 8 mg/hr DIRECT TIFFANY 10 mls/hr Administration 8 MG/HR Octreotide Acetate 500 mcg/ 101 mls @ 5.05 mls/hr 04/17/19 10:00 04/18/19 0 8:18 Sodium Chloride IV 25 mcg/hr TITR TIFFANY 5.05 mls/hr Administration Protocol 25 MCG/HR Ceftriaxone Sodium 1 gm in 50 mls @ 100 mls/hr 04/17/19 10:00 04/17/19 12:10 Rocephin/Ns 1 Gm/50 Ml IV 04/23/19 10:00 100 mls/hr Q24HR TIFFANY Administration Protocol Dextrose 1,000 mls @ 42 mls/hr 04/18/19 08:30 D10w IV DIRECT [facility] Insulin Human Regular 5 units 04/18/19 08:30 Humulin R IV Q6HR TIFFANY Morphine Sulfate 2 mg 04/17/19 11:00 04/17/19 22:40 Morphine IV 2 mg Q4H PRN Administration Pain, Moderate (4-6) Ondansetron HCl 4 mg 04/17/19 11:00 Zofran IV Q8H PRN Nausea And Vomiting Sodium Chloride 10 ml 04/17/19 11:00 04/17/19 22:40 Sodium Chloride Flush Syringe 10 Ml IV 10 ml BID TIFFANY Administration Sodium Chloride 10 ml 04/17/19 11:00 Sodium Chloride Flush Syringe 10 Ml IV PRN PRN LINE FLUSH
[2019-04-18] MEDS: INSULIN REGULAR, HUMAN 100 UNITS/1 ML IV SCH ×3 (09:20→18:07)
[2019-04-18] MEDS: DEXTROSE 50% IN WATER (25GM) 50 ML SYRINGE IV SCH ×3 (09:22→23:46)
[2019-04-18] MEDS: PANTOPRAZOLE 80 MG in SODIUM CHLORIDE 0.9% 100 ML IV SCH ×2 (10:43→21:05)
[2019-04-18] MEDS: cefTRIAXone/NS 1 GM/50 ML 1 GM/50 ML BAG IV SCH (10:43)
[2019-04-18 11:22] LABS: Hematocrit 26.2 % (30.3-42.9); Hemoglobin 9.1 gm/dl (10.1-14.3)
--- NOTE | 2019-04-18 11:24 | Gastroenterology Progress Note ---
Assessment and Plan 1.UGIB 2.cirrhosis 3.ascites 4.liver lesion (likely HCC) - s/p EGD on 04/17/2019 showing large distal esophageal varices s/p banding li gation with 5 bands placed. - No signs of active recurrent bleeding. - LFT trended upwards to 2000s AST today. - will check INR, acute hepatitis panel. - monitor for any mental status change. - continue with octreotide and PPI drip. - continue with abx ppx (ceftriaxone 1gm IV daily x 7 days) - recommend diagnostic paracentesis. labs ordered. -continue supportive care - clear liquid diet. - will follow. Subjective Date of service: 04/18/19 Interval history: Patient without any BM or nausea/vomiting. Abdominal still distended. Objective - Constitutional Vitals: Temp Pulse Resp BP Pulse Ox 97.4 F L 93 H 21 128/69 100 04/18/19 04:00 04/18/19 06:32 04/18/19 06:00 04/18/19 06:00 04/18/19 06:00 General appearance: no acute distress - EENT Eyes: EOM intact ENT: hearing intact - Neck Neck: supple - Respiratory Respiratory effort: normal - Cardiovascular Rhythm: regular Heart Sounds: Present: S1 & S2 - Gastrointestinal General gastrointestinal: Present: soft, non-tender, distended - Integumentary Integumentary: Present: clear, warm - Neurologic Neurological: alert and oriented x3 - Labs CBC & Chem 7: 04/18/19 11:10 04/18/19 03:24 Labs: Laboratory Results - last 24 hr 04/17/19 04/17/19 04/18/19 10:50 21:00 00:32 WBC RBC Hgb 10.7 10.3 Hct 31.8 29.0 L MCV MCH MCHC RDW Plt Count [place] % (Auto) Add Manual Diff Total Counted Seg Neuts % (Manual) Band Neutrophils % Lymphocytes % (Manual) Reactive Lymphs % (Man) Monocytes % (Manual) Eosinophils % (Manual) Basophils % (Manual) Metamyelocytes % Myelocytes % Promyelocytes % Blast Cells % Nucleated RBC % Seg Neutrophils # Man Band Neutrophils # Lymphocytes # (Manual) Abs React Lymphs (Man) Monocytes # (Manual) Eosinophils # (Manual) Basophils # (Manual) Metamyelocytes # Myelocytes # Promyelocytes # Blast Cells # WBC Morphology Hypersegmented Neuts Hyposegmented Neuts Hypogranular Neuts Smudge Cells Toxic Granulation Toxic Vacuolation Dohle Bodies Pelger-Huet Anomaly Alicia Rods Platelet Estimate Clumped Platelets Plt Clumps, EDTA Large Platelets Giant Platelets Platelet Satelliting Plt Morphology Comment RBC Morphology Dimorphic RBCs Polychromasia Hypochromasia Poikilocytosis Anisocytosis Microcytosis Macrocytosis Spherocytes Pappenheimer Bodies Sickle Cells Target Cells Tear Drop Cells Ovalocytes Helmet Cells [place] Bodies [place] Rings [place] Cells Bite Cells Crenated Cell Elliptocytes Acanthocytes (Spur) Rouleaux Hemoglobin C Crystals Schistocytes Malaria parasites David Bodies Hem Pathologist Commnt Sodium Potassium Chloride Carbon Dioxide Anion Gap BUN Creatinine Estimated GFR BUN/Creatinine Ratio Glucose POC Glucose Calcium Total Bilirubin AST ALT Alkaline Phosphatase Total Protein Albumin Albumin/Globulin Ratio Urine Color Yellow Urine Turbidity Clear Urine pH 6.0 Ur Specific [place] 1.006 Urine Protein <15 mg/dl Urine Glucose (UA) >=500 Urine Ketones Neg Urine Blood Mod Urine Nitrite Neg Urine Bilirubin Neg Urine Urobilinogen < 2.0 Ur Leukocyte Esterase Lg Urine WBC (Auto) 25.0 H Urine RBC (Auto) 6.0 U Epithel Cells (Auto) 1.0 Urine Bacteria (Auto) 1+ Urine Mucus Few 04/18/19 04/18/19 04/18/19 03:24 03:24 08:21 WBC 13.7 H RBC 2.73 L Hgb 9.9 L Hct 28.9 L MCV 106 H MCH 36 H MCHC 34 RDW 13.0 L Plt Count 158 [place] % (Auto) [employer] Senior Project Manager Add Manual Diff Complete Total Counted 100 Seg Neuts % (Manual) 83.0 H Band Neutrophils % 0 Lymphocytes % (Manual) 7.0 L Reactive Lymphs % (Man) 0 Monocytes % (Manual) 10.0 H Eosinophils % (Manual) 0 Basophils % (Manual) 0 Metamyelocytes % 0 Myelocytes % 0 Promyelocytes % 0 Blast Cells % 0 Nucleated RBC % Not Reportable Seg Neutrophils # Man 11.4 H Band Neutrophils # 0.0 Lymphocytes # (Manual) 1.0 L Abs React Lymphs (Man) 0.0 Monocytes # (Manual) 1.4 H Eosinophils # (Manual) 0.0 Basophils # (Manual) 0.0 Metamyelocytes # 0.0 Myelocytes # 0.0 Promyelocytes # 0.0 Blast Cells # 0.0 WBC Morphology Not Reportable Hypersegmented Neuts Not Reportable Hyposegmented Neuts Not Reportable Hypogranular Neuts Not Reportable Smudge Cells Not Reportable Toxic Granulation Not Reportable Toxic Vacuolation Not Reportable Dohle Bodies Not Reportable Pelger-Huet Anomaly Not Reportable Alicia Rods Not Reportable Platelet Estimate Consistent w auto Clumped Platelets Not Reportable Plt Clumps, EDTA Not Reportable Large Platelets Not Reportable Giant Platelets Not Reportable Platelet Satelliting Not Reportable Plt Morphology Comment Not Reportable RBC Morphology Not Reportable Dimorphic RBCs Not Reportable Polychromasia Not Reportable Hypochromasia Not Reportable Poikilocytosis Not Reportable Anisocytosis Few Microcytosis Not Reportable Macrocytosis Not Reportable Spherocytes Not Reportable Pappenheimer Bodies Not Reportable Sickle Cells Not Reportable Target Cells Rare Tear Drop Cells Not Reportable Ovalocytes Not Reportable Helmet Cells Not Reportable [place] Bodies Not Reportable [place] Rings Not Reportable [place] Cells Not Reportable Bite Cells Not Reportable Crenated Cell Not Reportable Elliptocytes Not Reportable Acanthocytes (Spur) Not Reportable Rouleaux Not Reportable Hemoglobin C Crystals Not Reportable Schistocytes Not Reportable Malaria parasites Not Reportable David Bodies Not Reportable Hem Pathologist Commnt No Sodium 129 L Potassium 6.6 H* Chloride 95.1 L Carbon Dioxide 21 L Anion Gap 20 BUN 47 H Creatinine 1.3 H Estimated GFR 49 BUN/Creatinine Ratio 36 Glucose 191 H POC Glucose 297 H Calcium 9.2 Total Bilirubin 3.20 H AST 2899 H ALT 3695 H Alkaline Phosphatase 280 H Total Protein 6.3 Albumin 2.8 L Albumin/Globulin Ratio 0.8 Urine Color Urine Turbidity Urine pH Ur Specific [place] Urine Protein Urine Glucose (UA) Urine Ketones Urine Blood Urine Nitrite Urine Bilirubin Urine Urobilinogen Ur Leukocyte Esterase Urine WBC (Auto) Urine RBC (Auto) U Epithel Cells (Auto) Urine Bacteria (Auto) Urine Mucus 04/18/19 10:23 WBC RBC Hgb Hct MCV MCH MCHC RDW Plt Count [place] % (Auto) Add Manual Diff Total Counted Seg Neuts % (Manual) Band Neutrophils % Lymphocytes % (Manual) Reactive Lymphs % (Man) Monocytes % (Manual) Eosinophils % (Manual) Basophils % (Manual) Metamyelocytes % Myelocytes % Promyelocytes % Blast Cells % Nucleated RBC % Seg Neutrophils # Man Band Neutrophils # Lymphocytes # (Manual) Abs React Lymphs (Man) Monocytes # (Manual) Eosinophils # (Manual) Basophils # (Manual) Metamyelocytes # Myelocytes # Promyelocytes # Blast Cells # WBC Morphology Hypersegmented Neuts Hyposegmented Neuts Hypogranular Neuts Smudge Cells Toxic Granulation Toxic Vacuolation Dohle Bodies Pelger-Huet Anomaly Alicia Rods Platelet Estimate Clumped Platelets Plt Clumps, EDTA Large Platelets Giant Platelets Platelet Satelliting Plt Morphology Comment RBC Morphology Dimorphic RBCs Polychromasia Hypochromasia Poikilocytosis Anisocytosis Microcytosis Macrocytosis Spherocytes Pappenheimer Bodies Sickle Cells Target Cells Tear Drop Cells Ovalocytes Helmet Cells [place] Bodies [place] Rings [place] Cells Bite Cells Crenated Cell Elliptocytes Acanthocytes (Spur) Rouleaux Hemoglobin C Crystals Schistocytes Malaria parasites David Bodies Hem Pathologist Commnt Sodium Potassium Chloride Carbon Dioxide Anion Gap BUN Creatinine Estimated GFR BUN/Creatinine Ratio Glucose POC Glucose 320 H Calcium Total Bilirubin AST ALT Alkaline Phosphatase Total Protein Albumin Albumin/Globulin Ratio Urine Color Urine Turbidity Urine pH Ur Specific [place] Urine Protein Urine Glucose (UA) Urine Ketones Urine Blood Urine Nitrite Urine Bilirubin Urine Urobilinogen Ur Leukocyte Esterase Urine WBC (Auto) Urine RBC (Auto) U Epithel Cells (Auto) Urine Bacteria (Auto) Urine Mucus
[2019-04-18 11:35] LABS: INR 1.39 (0.87-1.13)
[2019-04-18 12:01] LABS: Hepatitis B Surface Antigen Non-Reactive (Negative); Hepatitis C Virus Antibody Reactive (NonReactive)
--- NOTE | 2019-04-18 13:19 | Consultation ---
History of Present Illness - Reason for Consult Consult date: 04/18/19 acute renal failure, hyperkalemia Requesting physician: JADON GALEAS - History of Present Illness This is a 73 yo F with past medical history of chronic hepatitis C, liver cirrhosis with ascites requiring almost monthly paracentesis who presents to the hospital complaining of abdominal distention and melena and hematemesis. Pt reports that she had 2 dark stools and one episode of maroon-colored bloody vomit en route to the hospital. Labs showed low Hb at 9.5 and patient was admitted for further GI evaluation incl. EGD. Labs also showed elevated BUN/Cr at 47/1.3mg/dl along with significant hyperkalemia for which renal consult is requested. Pt has been on diuretic therapy with lasix and spironolactone at home, no previous renal disease reported. pt's family denies recent NSAIDs use or IV contrast exposure. Past History Past Medical History: anemia, hepatitis, liver disease, other (as per HPI) Past Surgical History: hernia repair Social history: other (former smoker; former ETOH abuse (not actively drinking)) Family history: other (esophageal CA-sister) Medications and Allergies Allergies Allergy/AdvReac Type Severity Reaction Status Date / Time Sulfa (Sulfonamide Allergy Unknown Verified 08/07/13 09:05 Antibiotics) Home Medications Medication Instructions Recorded Confirmed Last Taken Type Aspirin [Baby Aspirin] 162 mg PO QDAY 08/07/13 04/17/19 04/16/19 History Atenolol [Tenormin] 25 mg PO DAILY 08/07/13 04/17/19 04/16/19 History Folic Acid/Vit B Complex and C 400 mcg PO DAILY 08/07/13 04/17/19 04/16/19 History [B-Complex with Vit C Caplet] Furosemide [Lasix] 20 mg PO DAILY 08/07/13 04/17/19 04/16/19 History Spironolactone [Aldactone] 50 mg PO QDAY 08/07/13 04/17/19 04/16/19 History traMADol [Ultram 50 MG tab] 50 mg PO Q6HR PRN #20 tablet 02/09/19 04/17/19 04/16/19 Rx Omeprazole 40 mg PO QDAY 04/17/19 04/17/19 04/16/19 History Active Meds: Active Medications Acetaminophen (Tylenol) 650 mg PO Q4H PRN PRN Reason: Pain MILD(1-3)/Fever >100.5/TILLMAN Dextrose (D50w (25gm) Syringe) 25 ml IV Q6H [facility] Last Admin: 04/18/19 09:22 Dose: 25 ml Documented by: Hydromorphone HCl (Dilaudid) 0.25 mg IV Q3H PRN PRN Reason: Pain, Moderate (4-6) Last Admin: 04/17/19 17:01 Dose: 0.25 mg Documented by: Pantoprazole Sodium 80 mg/ (Sodium Chloride) 100 mls @ 10 mls/hr IV DIRECT TIFFANY Last Admin: 04/18/19 10:43 Dose: 8 mg/hr, 10 mls/hr Documented by: Octreotide Acetate 500 mcg/ (Sodium Chloride) 101 mls @ 5.05 mls/hr IV TITR [facility]; Protocol Last Admin: 04/18/19 08:18 Dose: 25 mcg/hr, 5.05 mls/hr Documented by: Ceftriaxone Sodium (Rocephin/Ns 1 Gm/50 Ml) 1 gm in 50 mls @ 100 mls/hr IV Q24HR [facility]; Protocol Stop: 04/23/19 10:00 Last Admin: 04/18/19 10:43 Dose: 100 mls/hr Documented by: Sodium Bicarbonate 150 meq/ (Dextrose) 1,150 mls @ 42 mls/hr IV DIRECT TIFFANY Insulin Human Regular (Humulin R) 5 units IV Q6HR [facility] Last Admin: 04/18/19 09:20 Dose: 5 units Documented by: Morphine Sulfate (Morphine) 2 mg IV Q4H PRN PRN Reason: Pain, Moderate (4-6) Last Admin: 04/17/19 22:40 Dose: 2 mg Documented by: Ondansetron HCl (Zofran) 4 mg IV Q8H PRN PRN Reason: Nausea And Vomiting Last Admin: 04/18/19 08:51 Dose: 4 mg Documented by: Sodium Chloride (Sodium Chloride Flush Syringe 10 Ml) 10 ml IV BID [facility] Last Admin: 04/18/19 10:45 Dose: 10 ml Documented by: Sodium Chloride (Sodium Chloride Flush Syringe 10 Ml) 10 ml IV PRN PRN PRN Reason: LINE FLUSH Review of Systems Constitutional: fatigue, weakness, poor appetite Cardiovascular: dyspnea on exertion Gastrointestinal: hematemesis, melena Exam - Vital Signs Vital signs: Vital Signs Temp Pulse Resp BP Pulse Ox 97.4 F L 94 H 16 106/54 100 04/17/19 07:28 04/17/19 07:28 04/17/19 07:28 04/17/19 07:28 04/17/19 07:28 - General Appearance General appearance: appears stated age, chronically ill, fatigue, frail EENT: ATNC, PERRL, mucous membranes moist Neck: Present: neck supple Respiratory: Decreased Breath Sounds Heart: regular, S1S2 Gastrointestinal: Present: distended Integumentary: no rash, other Neurologic: no focal deficit, alert and oriented x3, CN 3-12 intact Psychiatric: mood/affect appropriate Results - Lab Results 04/18/19 11:10 04/18/19 03:24 Most recent lab results Calcium 9.2 mg/dL (8.4-10.2) 04/18/19 03:24 Laboratory Tests 04/17/19 04/18/19 10:50 10:50 Urine Color Yellow Urine Turbidity Clear Urine pH 6.0 Ur Specific [place] 1.006 Urine Protein <15 mg/dl Urine Glucose (UA) >=500 Urine Ketones Neg Urine Blood Mod Urine Nitrite Neg Urine Bilirubin Neg Urine Urobilinogen < 2.0 Ur Leukocyte Esterase Lg Urine WBC (Auto) 25.0 H Urine RBC (Auto) 6.0 U Epithel Cells (Auto) 1.0 Hepatitis A IgM Ab Non-reactive Hep Bs Antigen Non-reactive Hep B Core IgM Ab Non-reactive Hepatitis C Antibody Reactive A Assessment and Plan - Patient Problems (1) Acute kidney injury Current Visit: Yes Status: Acute Plan to address problem: likely pre-renal azotemia in the setting of n/v, dehydration, GI bleed. Ischemic ATN in the setting of liver cirrhosis / hemodynamic changes cannot be rule out. To rule out acute hepatorenal syndrome. Check urine lytes. Pt started on oct reotide, will add albumin 12.5g tid. hold lasix/spironolactone. Hyperkalemia treated medically with Calcium gluconate, bicarb IVP and kayexalate. will cont bicarb gtt at 42ml/hr for further correction of met acidosis. avoid nephrotoxins, NSAIDs, IV contrast. will monitor lytes/renal parameters closely and make further recommendations. (2) Hyperkalemia Current Visit: Yes Status: Acute Plan to address problem: hold lasix/spironolactone. Hyperkalemia treated medically with Calcium gluconate, bicarb IVP and kayexalate. will cont bicarb gtt at 42ml/hr for further correction of met acidosis. (3) GI bleed Current Visit: Yes Status: Acute Plan to address problem: management as per GI. hb stable > 9 (4) Ascites Current Visit: Yes Status: Acute Plan to address problem: pending diagnostic/therapeutic paracentesis (5) Cirrhosis Current Visit: Yes Status: Chronic (6) Hepatitis C Current Visit: Yes Status: Chronic Qualifiers: Viral hepatitis chronicity: chronic
[2019-04-18] MEDS ORDERED: SODIUM BICARBONATE 150 MEQ in DEXTROSE 5% IN WATER 1,000 ML IV SCH (14:00)
[2019-04-18 19:22] LABS: Hematocrit 26.7 % (30.3-42.9); Hemoglobin 8.8 gm/dl (10.1-14.3); Mean Corpuscular HGB Conc 33 % (30-34); Mean Corpuscular Volume 109 fl (79-97); Platelet Count 145 K/mm3 (140-440); Red Blood Count 2.45 M/mm3 (3.65-5.03); Red Cell Distribution Width 13.8 % (13.2-15.2)
[2019-04-18 19:23] LABS: Calcium 9.2 mg/dL (8.4-10.2)
[2019-04-18] MEDS ORDERED: LACTULOSE 20 GM/30 ML ORAL LIQD PO SCH (20:00)
[2019-04-18] MEDS: ALBUMIN HUMAN 25% (12.5 GM/50 ML) INJ IV SCH (23:45)
[2019-04-19] MEDS: INSULIN REGULAR, HUMAN 100 UNITS/1 ML IV SCH ×4 (00:20→17:28)
[2019-04-19] MEDS: DEXTROSE 50% IN WATER (25GM) 50 ML SYRINGE IV SCH ×4 (04:21→22:32)
[2019-04-19 05:26] LABS: Hematocrit 21.8 % (30.3-42.9); Hemoglobin 7.6 gm/dl (10.1-14.3); Mean Corpuscular HGB Conc 35 % (30-34); Mean Corpuscular Volume 107 fl (79-97); Platelet Count 129 K/mm3 (140-440); Red Blood Count 2.05 M/mm3 (3.65-5.03); Red Cell Distribution Width 13.2 % (13.2-15.2)
[2019-04-19 05:49] LABS: BUN/Creatinine Ratio TNR; Blood Urea Nitrogen TNR mg/dL (7-17)
[2019-04-19 05:50] LABS: Alanine Aminotransferase TNR units/L (7-56); Albumin TNR g/dL (3.9-5); Calcium TNR mg/dL (8.4-10.2)
[2019-04-19 05:51] LABS: Hemolysis Index TNR
[2019-04-19] MEDS: ALBUMIN HUMAN 25% (12.5 GM/50 ML) INJ IV SCH ×2 (05:55→13:22)
[2019-04-19 06:39] LABS: Basophils % (Manual) 0 % (0.0-1.8); Eosinophils % (Manual) 0 % (0.0-4.3); Total Cells Counted 100
[2019-04-19 06:40] LABS: Anisocytosis Few; Ovalocytes Few; Platelet Estimate Consistent w Auto; Poikilocytosis Few; Target Cells 2+; Tear Drop Cells Rare
[2019-04-19] MEDS: PANTOPRAZOLE 80 MG in SODIUM CHLORIDE 0.9% 100 ML IV SCH ×2 (08:08→17:43)
--- NOTE | 2019-04-19 09:31 | Gastroenterology Progress Note ---
Assessment and Plan 1.UGIB 2.cirrhosis 3.ascites 4.liver lesion (likely HCC) 5. Hyperkalemia with PINO. - s/p EGD on 04/17/2019 showing large distal esophageal varices s/p banding ligation with 5 bands placed. - No signs of active recurrent bleeding. - LFT trended upwards to 2000s AST on 04/18/2019. Pending repeat CMP from today. - acute hepatitis panel positive for HCV antibody only. - monitor for any mental status change. - continue with octreotide drip. Can switch PPI to PO today. - nephrology consulted for hyperkalemia and PINO. Patient on bicarb and started on albumin IV. - continue with abx ppx (ceftriaxone 1gm IV daily x 7 days) - recommend diagnostic paracentesis. labs ordered. Patient on scheduled today. -continue supportive care - will advance diet. - continue with lactulose bid. - May need MRI to be done for evaluation of liver lesion once paracentesis done. - will follow. Subjective Date of service: 04/19/19 Interval history: Patient had a BM overnight without any blood per nursing. Sleepy this morning. No abdominal pain or nausea/vomiting. Objective - Constitutional Vitals: Temp Pulse Resp BP Pulse Ox 98.5 F 95 H 21 113/58 99 04/19/19 04:00 04/19/19 06:00 04/19/19 06:00 04/19/19 06:00 04/19/19 06:00 General appearance: no acute distress - EENT ENT: hearing intact - Neck Neck: supple - Respiratory Respiratory effort: normal - Cardiovascular Rhythm: regular Heart Sounds: Present: S1 & S2 - Gastrointestinal General gastrointestinal: Present: soft, non-tender, distended - Integumentary Integumentary: Present: warm - Labs CBC & Chem 7: 04/19/19 04:49 04/19/19 04:49 Labs: Laboratory Results - last 24 hr 04/18/19 04/18/19 04/18/19 10:23 10:50 11:10 WBC RBC Hgb 9.1 L Hct 26.2 L MCV MCH MCHC RDW Plt Count Add Manual Diff Total Counted Seg Neuts % (Manual) Band Neutrophils % Lymphocytes % (Manual) Reactive Lymphs % (Man) Monocytes % (Manual) Eosinophils % (Manual) Basophils % (Manual) Metamyelocytes % Myelocytes % Promyelocytes % Blast Cells % Nucleated RBC % Seg Neutrophils # Man Band Neutrophils # Lymphocytes # (Manual) Abs React Lymphs (Man) Monocytes # (Manual) Eosinophils # (Manual) Basophils # (Manual) Metamyelocytes # Myelocytes # Promyelocytes # Blast Cells # WBC Morphology Hypersegmented Neuts Hyposegmented Neuts Hypogranular Neuts Smudge Cells Toxic Granulation Toxic Vacuolation Dohle Bodies Pelger-Huet Anomaly Alicia Rods Platelet Estimate Clumped Platelets Plt Clumps, EDTA Large Platelets Giant Platelets Platelet Satelliting Plt Morphology Comment RBC Morphology Dimorphic RBCs Polychromasia Hypochromasia Poikilocytosis Anisocytosis Microcytosis Macrocytosis Spherocytes Pappenheimer Bodies Sickle Cells Target Cells Tear Drop Cells Ovalocytes Helmet Cells [place] Bodies Bee [place] Rings [place] Cells Bite Cells Crenated Cell Elliptocytes Acanthocytes (Spur) Rouleaux Hemoglobin C Crystals Schistocytes Malaria parasites David Bodies Hem Pathologist Commnt PT INR Sodium Potassium Chloride Carbon Dioxide Anion Gap BUN Creatinine Estimated GFR BUN/Creatinine Ratio Glucose POC Glucose 320 H Calcium Total Bilirubin AST ALT Alkaline Phosphatase Ammonia Total Protein Albumin Albumin/Globulin Ratio Hepatitis A IgM Ab Non-reactive Hep Bs Antigen Non-reactive Hep B Core IgM Ab Non-reactive Hepatitis C Antibody Reactive A 04/18/19 04/18/19 04/18/19 11:10 11:10 12:32 WBC RBC Hgb Hct MCV MCH MCHC RDW Plt Count Add Manual Diff Total Counted Seg Neuts % (Manual) Band Neutrophils % Lymphocytes % (Manual) Reactive Lymphs % (Man) Monocytes % (Manual) Eosinophils % (Manual) Basophils % (Manual) Metamyelocytes % Myelocytes % Promyelocytes % Blast Cells % Nucleated RBC % Seg Neutrophils # Man Band Neutrophils # Lymphocytes # (Manual) Abs React Lymphs (Man) Monocytes # (Manual) Eosinophils # (Manual) Basophils # (Manual) Metamyelocytes # Myelocytes # Promyelocytes # Blast Cells # WBC Morphology Hypersegmented Neuts Hyposegmented Neuts Hypogranular Neuts Smudge Cells Toxic Granulation Toxic Vacuolation Dohle Bodies Pelger-Huet Anomaly Alicia Rods Platelet Estimate Clumped Platelets Plt Clumps, EDTA Large Platelets Giant Platelets Platelet Satelliting Plt Morphology Comment RBC Morphology Dimorphic RBCs Polychromasia Hypochromasia Poikilocytosis Anisocytosis Microcytosis Macrocytosis Spherocytes Pappenheimer Bodies Sickle Cells Target Cells Tear Drop Cells Ovalocytes Helmet Cells [place] Bodies [place] Rings [place] Cells Bite Cells Crenated Cell Elliptocytes Acanthocytes (Spur) Rouleaux Hemoglobin C Crystals Schistocytes Malaria parasites David Bodies Hem Pathologist Commnt PT 16.7 H INR 1.39 H Sodium Potassium Chloride Carbon Dioxide Anion Gap BUN Creatinine Estimated GFR BUN/Creatinine Ratio Glucose POC Glucose 226 H Calcium Total Bilirubin AST ALT Alkaline Phosphatase Ammonia 100.0 H Total Protein Albumin Albumin/Globulin Ratio Hepatitis A IgM Ab Hep Bs Antigen Hep B Core IgM Ab Hepatitis C Antibody 04/18/19 04/18/19 04/18/19 14:30 16:50 18:15 WBC RBC Hgb Hct MCV MCH MCHC RDW Plt Count Add Manual Diff Total Counted Seg Neuts % (Manual) Band Neutrophils % Lymphocytes % (Manual) Reactive Lymphs % (Man) Monocytes % (Manual) Eosinophils % (Manual) Basophils % (Manual) Metamyelocytes % Myelocytes % Promyelocytes % Blast Cells % Nucleated RBC % Seg Neutrophils # Man Band Neutrophils # Lymphocytes # (Manual) Abs React Lymphs (Man) Monocytes # (Manual) Eosinophils # (Manual) Basophils # (Manual) Metamyelocytes # Myelocytes # Promyelocytes # Blast Cells # WBC Morphology Hypersegmented Neuts Hyposegmented Neuts Hypogranular Neuts Smudge Cells Toxic Granulation Toxic Vacuolation Dohle Bodies Pelger-Huet Anomaly Alicia Rods Platelet Estimate Clumped Platelets Plt Clumps, EDTA Large Platelets Giant Platelets Platelet Satelliting Plt Morphology Comment RBC Morphology Dimorphic RBCs Polychromasia Hypochromasia Poikilocytosis Anisocytosis Microcytosis Macrocytosis Spherocytes Pappenheimer Bodies Sickle Cells Target Cells Tear Drop Cells Ovalocytes Helmet Cells [place] Bodies [place] Rings [place] Cells Bite Cells Crenated Cell Elliptocytes Acanthocytes (Spur) Rouleaux Hemoglobin C Crystals Schistocytes Malaria parasites David Bodies Hem Pathologist Commnt PT INR Sodium Potassium Chloride Carbon Dioxide Anion Gap BUN Creatinine Estimated GFR BUN/Creatinine Ratio Glucose POC Glucose 183 H 139 H 147 H Calcium Total Bilirubin AST ALT Alkaline Phosphatase Ammonia Total Protein Albumin Albumin/Globulin Ratio Hepatitis A IgM Ab Hep Bs Antigen Hep B Core IgM Ab Hepatitis C Antibody 04/18/19 04/18/19 04/18/19 18:46 18:46 19:42 WBC 14.0 H RBC 2.45 L Hgb 8.8 L Hct 26.7 L MCV 109 H MCH 36 H MCHC 33 RDW 13.8 Plt Count 145 Add Manual Diff Total Counted Seg Neuts % (Manual) Band Neutrophils % Lymphocytes % (Manual) Reactive Lymphs % (Man) Monocytes % (Manual) Eosinophils % (Manual) Basophils % (Manual) Metamyelocytes % Myelocytes % Promyelocytes % Blast Cells % Nucleated RBC % Seg Neutrophils # Man Band Neutrophils # Lymphocytes # (Manual) Abs React Lymphs (Man) Monocytes # (Manual) Eosinophils # (Manual) Basophils # (Manual) Metamyelocytes # Myelocytes # Promyelocytes # Blast Cells # WBC Morphology Hypersegmented Neuts Hyposegmented Neuts Hypogranular Neuts Smudge Cells Toxic Granulation Toxic Vacuolation Dohle Bodies Pelger-Huet Anomaly Alicia Rods Platelet Estimate Clumped Platelets Plt Clumps, EDTA Large Platelets Giant Platelets Platelet Satelliting Plt Morphology Comment RBC Morphology Dimorphic RBCs Polychromasia Hypochromasia Poikilocytosis Anisocytosis Microcytosis Macrocytosis Spherocytes Pappenheimer Bodies Sickle Cells Target Cells Tear Drop Cells Ovalocytes Helmet Cells [place] Bodies Bee [place] Rings Tanya Cells Bite Cells Crenated Cell Elliptocytes Acanthocytes (Spur) Rouleaux Hemoglobin C Crystals Schistocytes Malaria parasites David Bodies Hem Pathologist Commnt PT INR Sodium 129 L Potassium 5.7 H Chloride 95.5 L Carbon Dioxide 17 L Anion Gap 22 BUN 57 H Creatinine 1.5 H Estimated GFR 41 BUN/Creatinine Ratio 38 Glucose 189 H POC Glucose 171 H Calcium 9.2 Total Bilirubin AST ALT Alkaline Phosphatase Ammonia Total Protein Albumin Albumin/Globulin Ratio Hepatitis A IgM Ab Hep Bs Antigen Hep B Core IgM Ab Hepatitis C Antibody 04/18/19 04/19/19 04/19/19 21:42 00:20 02:10 WBC RBC Hgb Hct MCV MCH MCHC RDW Plt Count Add Manual Diff Total Counted Seg Neuts % (Manual) Band Neutrophils % Lymphocytes % (Manual) Reactive Lymphs % (Man) Monocytes % (Manual) Eosinophils % (Manual) Basophils % (Manual) Metamyelocytes % Myelocytes % Promyelocytes % Blast Cells % Nucleated RBC % Seg Neutrophils # Man Band Neutrophils # Lymphocytes # (Manual) Abs React Lymphs (Man) Monocytes # (Manual) Eosinophils # (Manual) Basophils # (Manual) Metamyelocytes # Myelocytes # Promyelocytes # Blast Cells # WBC Morphology Hypersegmented Neuts Hyposegmented Neuts Hypogranular Neuts Smudge Cells Toxic Granulation Toxic Vacuolation Dohle Bodies Pelger-Huet Anomaly Alicia Rods Platelet Estimate Clumped Platelets Plt Clumps, EDTA Large Platelets Giant Platelets Platelet Satelliting Plt Morphology Comment RBC Morphology Dimorphic RBCs Polychromasia Hypochromasia Poikilocytosis Anisocytosis Microcytosis Macrocytosis Spherocytes Pappenheimer Bodies Sickle Cells Target Cells Tear Drop Cells Ovalocytes Helmet Cells [place] Bodies [place] Rings [place] Cells Bite Cells Crenated Cell Elliptocytes Acanthocytes (Spur) Rouleaux Hemoglobin C Crystals Schistocytes Malaria parasites David Bodies Hem Pathologist Commnt PT INR Sodium Potassium Chloride Carbon Dioxide Anion Gap BUN Creatinine Estimated GFR BUN/Creatinine Ratio Glucose POC Glucose 135 H 241 H 171 H Calcium Total Bilirubin AST ALT Alkaline Phosphatase Ammonia Total Protein Albumin Albumin/Globulin Ratio Hepatitis A IgM Ab Hep Bs Antigen Hep B Core IgM Ab Hepatitis C Antibody 04/19/19 04/19/19 04/19/19 04:03 04:49 04:49 WBC 14.3 H RBC 2.05 L Hgb 7.6 L Hct 21.8 L MCV 107 H MCH 37 H MCHC 35 H RDW 13.2 Plt Count 129 L Add Manual Diff Complete Total Counted 100 Seg Neuts % (Manual) 78.0 H Band Neutrophils % 0 Lymphocytes % (Manual) 9.0 L Reactive Lymphs % (Man) 0 Monocytes % (Manual) 11.0 H Eosinophils % (Manual) 0 Basophils % (Manual) 0 Metamyelocytes % 2.0 Myelocytes % 0 Promyelocytes % 0 Blast Cells % 0 Nucleated RBC % 2.0 H Seg Neutrophils # Man 11.2 H Band Neutrophils # 0.0 Lymphocytes # (Manual) 1.3 Abs React Lymphs (Man) 0.0 Monocytes # (Manual) 1.6 H Eosinophils # (Manual) 0.0 Basophils # (Manual) 0.0 Metamyelocytes # 0.3 Myelocytes # 0.0 Promyelocytes # 0.0 Blast Cells # 0.0 WBC Morphology Not Reportable Hypersegmented Neuts Not Reportable Hyposegmented Neuts Not Reportable Hypogranular Neuts Not Reportable Smudge Cells Not Reportable Toxic Granulation Not Reportable Toxic Vacuolation Not Reportable Dohle Bodies Not Reportable Pelger-Huet Anomaly Not Reportable Alicia Rods Not Reportable Platelet Estimate Consistent w auto Clumped Platelets Not Reportable Plt Clumps, EDTA Not Reportable Large Platelets Not Reportable Giant Platelets Not Reportable Platelet Satelliting Not Reportable Plt Morphology Comment Not Reportable RBC Morphology Not Reportable Dimorphic RBCs Not Reportable Polychromasia Not Reportable Hypochromasia Not Reportable Poikilocytosis Few Anisocytosis Few Microcytosis Not Reportable Macrocytosis Not Reportable Spherocytes Not Reportable Pappenheimer Bodies Not Reportable Sickle Cells Not Reportable Target Cells 2+ Tear Drop Cells Rare Ovalocytes Few Helmet Cells Not Reportable [place] Bodies Not Reportable [place] Rings Not Reportable Tanya Cells Not Reportable Bite Cells Not Reportable Crenated Cell Not Reportable Elliptocytes Not Reportable Acanthocytes (Spur) Not Reportable Rouleaux Not Reportable Hemoglobin C Crystals Not Reportable Schistocytes Not Reportable Malaria parasites Not Reportable David Bodies Not Reportable Hem Pathologist Commnt No PT INR Sodium TNR Potassium TNR Chloride TNR Carbon Dioxide TNR Anion Gap TNR BUN TNR Creatinine TNR Estimated GFR TNR BUN/Creatinine Ratio TNR Glucose TNR POC Glucose 140 H Calcium TNR Total Bilirubin TNR AST TNR ALT TNR Alkaline Phosphatase TNR Ammonia Total Protein TNR Albumin TNR Albumin/Globulin Ratio TNR Hepatitis A IgM Ab Hep Bs Antigen Hep B Core IgM Ab Hepatitis C Antibody 04/19/19 04/19/19 04:49 05:54 WBC RBC Hgb Hct MCV MCH MCHC RDW Plt Count Add Manual Diff Total Counted Seg Neuts % (Manual) Band Neutrophils % Lymphocytes % (Manual) Reactive Lymphs % (Man) Monocytes % (Manual) Eosinophils % (Manual) Basophils % (Manual) Metamyelocytes % Myelocytes % Promyelocytes % Blast Cells % Nucleated RBC % Seg Neutrophils # Man Band Neutrophils # Lymphocytes # (Manual) Abs React Lymphs (Man) Monocytes # (Manual) Eosinophils # (Manual) Basophils # (Manual) Metamyelocytes # Myelocytes # Promyelocytes # Blast Cells # WBC Morphology Hypersegmented Neuts Hyposegmented Neuts Hypogranular Neuts Smudge Cells Toxic Granulation Toxic Vacuolation Dohle Bodies Pelger-Huet Anomaly Alicia Rods Platelet Estimate Clumped Platelets Plt Clumps, EDTA Large Platelets Giant Platelets Platelet Satelliting Plt Morphology Comment RBC Morphology Dimorphic RBCs Polychromasia Hypochromasia Poikilocytosis Anisocytosis Microcytosis Macrocytosis Spherocytes Pappenheimer Bodies Sickle Cells Target Cells Tear Drop Cells Ovalocytes Helmet Cells [place] Bodies [place] Rings Tanya Cells Bite Cells Crenated Cell Elliptocytes Acanthocytes (Spur) Rouleaux Hemoglobin C Crystals Schistocytes Malaria parasites David Bodies Hem Pathologist Commnt PT INR Sodium Potassium Chloride Carbon Dioxide Anion Gap BUN Creatinine Estimated GFR BUN/Creatinine Ratio Glucose POC Glucose 203 H Calcium Total Bilirubin AST ALT Alkaline Phosphatase Ammonia 74.0 H Total Protein Albumin Albumin/Globulin Ratio Hepatitis A IgM Ab Hep Bs Antigen Hep B Core IgM Ab Hepatitis C Antibody
[2019-04-19] MEDS: LACTULOSE 20 GM/30 ML ORAL LIQD PO SCH ×2 (10:23→22:35)
[2019-04-19] MEDS: cefTRIAXone/NS 1 GM/50 ML 1 GM/50 ML BAG IV SCH (10:24)
[2019-04-19 11:04] LABS: INR 1.82 (0.87-1.13)
[2019-04-19 11:54] LABS: Albumin 3.2 g/dL (3.9-5); Calcium 9.2 mg/dL (8.4-10.2)
--- NOTE | 2019-04-19 13:07 | Procedure Note ---
Date of procedure: 04/19/19 Pre-op diagnosis: ascites Post-op diagnosis: same Procedure: US paracentesis Findings: moderate to large ascites Anesthesia: local Surgeon: ISAAC RECIO Estimated blood loss: none Pathology: list (20G core x 2) Specimen disposition: to lab Condition: stable Disposition: floor
--- NOTE | 2019-04-19 13:39 | Ultrasound Report ---
ULTRASOUND-GUIDED PARACENTESIS HISTORY: ascites, cirrhosis. PROCEDURE: The risks (including but not limited to bleeding, infection, and bowel injury) and benefi ts were explained to the patient and informed consent was obtained. A time out procedure was perform ed. Ultrasound was used to evaluate the abdomen and locate the largest ascites fluid pocket. Once the sk in was marked, the procedure site was prepped and draped in the usual sterile fashion and lidocaine w as used for local anesthesia. A skin gonsalo was made and a 5 [place] centesis catheter was placed. The patient was monitored closely throughout the procedure, and a total of 6600 mL of clear yellow fluid was aspirated. Samples were sent to the lab for further evaluation per the primary clinicians order s. The patient tolerated the procedure well with no complications. IMPRESSION: Successful ultrasound-guided paracentesis as described. Signer Name: Rich Red Jr, MD Signed: 04/19/2019 1:34 PM Workstation Name: [id number]
[2019-04-19] MEDS: OCTREOTIDE 500 MCG in SODIUM CHLORIDE 0.9% 100 ML IV SCH (14:19)
--- NOTE | 2019-04-19 15:33 | Progress Note ---
Assessment and Plan - Patient Problems (1) Acute kidney injury Current Visit: Yes Status: Acute Plan to address problem: likely pre-renal azotemia in the setting of n/v, dehydration, GI bleed. Ischemic ATN in the setting of liver cirrhosis / GI bleed / hemodynamic changes cannot be rule out. To rule out acute hepatorenal syndrome. Check urine lytes. Cont octreotide and albumin 12.5g tid x 3 doses. hold lasix/spironolactone. Hyperkalemia improved with medical treatment, metabolic acidosis corrected, will d/c bicarb gtt. avoid nephrotoxins, NSAIDs, IV contrast. will monitor lytes/renal parameters closely and make further recommendations. (2) Hyperkalemia Current Visit: Yes Status: Acute Plan to address problem: hold lasix/spironolactone. Hyperkalemia treated medically with Calcium gluconate, bicarb IVP and kayexalate. Cont 2g K renal diet (3) GI bleed Current Visit: Yes Status: Acute Plan to address problem: management as per GI. Transfuse with 2PRBC for Hb < 7 (4) Ascites Current Visit: Yes Status: Acute Plan to address problem: s/p diagnostic/therapeutic paracentesis (5) Cirrhosis Current Visit: Yes Status: Chronic (6) Hepatitis C Current Visit: Yes Status: Chronic Qualifiers: Viral hepatitis chronicity: chronic Subjective Date of service: 04/19/19 Principal diagnosis: PINO Interval history: Pt awake, alert, weak, in no acute distress. s/p diagnostic/therapeutic paracentesis this AM Objective - Vital Signs Vital signs: Vital Signs - 12hr 04/19/19 04/19/19 04/19/19 04:00 06:00 08:00 Temperature 98.5 F 97.8 F Pulse Rate 106 H 96 H 92 H Pulse Rate [ 95 H From Monitor] Respiratory 23 19 18 Rate Blood Pressure 122/53 113/58 117/54 O2 Sat by Pulse 99 100 98 Oximetry 04/19/19 04/19/19 10:00 13:20 Temperature Pulse Rate 95 H 107 H Pulse Rate [ From Monitor] Respiratory 17 17 Rate Blood Pressure 135/57 107/57 O2 Sat by Pulse Oximetry - General Appearance General appearance: appears stated age, chronically ill, frail EENT: ATNC, PERRL, mucous membranes moist Neck: no JVD Respiratory: Present: Decreased Breath Sounds Cardiology: regular, S1S2 Gastrointestinal: distended Integumentary: no rash, other (+ edema ) Neurologic: no focal deficit, strength 5/5, CN 3-12 intact Psychiatric: mood/affect appropriate, cooperative - Lab 04/19/19 04:49 04/19/19 10:00 Most recent lab results Calcium 9.2 mg/dL (8.4-10.2) 04/19/19 10:00 Medications & Allergies - Medications Allergies/Adverse Reactions: Allergies Sulfa (Sulfonamide Antibiotics) Allergy (Verified 08/07/13 09:05) Unknown Home Medications: Home Medications Medication Instructions Recorded Confirmed Last Taken Type Aspirin [Baby Aspirin] 162 mg PO QDAY 08/07/13 04/17/19 04/16/19 History Atenolol [Tenormin] 25 mg PO DAILY 08/07/13 04/17/19 04/16/19 History Folic Acid/Vit B Complex and C 400 mcg PO DAILY 08/07/13 04/17/19 04/16/19 History [B-Complex with Vit C Caplet] Furosemide [Lasix] 20 mg PO DAILY 08/07/13 04/17/19 04/16/19 History Spironolactone [Aldactone] 50 mg PO QDAY 08/07/13 04/17/19 04/16/19 History traMADol [Ultram 50 MG tab] 50 mg PO Q6HR PRN #20 tablet 02/09/19 04/17/19 04/16/19 Rx Omeprazole 40 mg PO QDAY 04/17/19 04/17/19 04/16/19 History Active Medications: Generic Name Dose Route Start Last Admin Trade Name Sergeyq PRN Reason Stop Dose Admin Acetaminophen 650 mg 04/17/19 11:00 Tylenol PO Q4H PRN Pain MILD(1-3)/Fever >100.5/TILLMAN Dextrose 25 ml 04/18/19 10:00 04/19/19 10:23 D50w (25gm) Syringe IV 25 ml Q6H TIFFANY Administration Hydromorphone HCl 0.25 mg 04/17/19 11:00 04/17/19 17:01 Dilaudid IV 0.25 mg Q3H PRN Administration Pain, Moderate (4-6) Pantoprazole Sodium 80 mg/ 100 mls @ 10 mls/hr 04/17/19 08:00 04/19/19 08:08 Sodium Chloride IV 8 mg/hr DIRECT TIFFANY 10 mls/hr Administration 8 MG/HR Octreotide Acetate 500 mcg/ 101 mls @ 5.05 mls/hr 04/17/19 10:00 04/19/19 14:19 Sodium Chloride IV 25 mcg/hr TITR TIFFANY 5.05 mls/hr Administration Protocol 25 MCG/HR Ceftriaxone Sodium 1 gm in 50 mls @ 100 mls/hr 04/17/19 10:00 04/19/19 10:24 Rocephin/Ns 1 Gm/50 Ml IV 04/23/19 10:29 100 mls/hr Q24HR TIFFANY Administration Protocol Insulin Human Regular 5 units 04/18/19 08:30 04/19/19 13:36 Humulin R IV 5 units Q6HR TIFFANY Administration Lactulose 10 gm 04/19/19 10:00 04/19/19 10:23 Cephulac PO 10 gm BID TIFFANY Administration Morphine Sulfate 2 mg 04/17/19 11:00 04/17/19 22:40 Morphine IV 2 mg Q4H PRN Administration Pain, Moderate (4-6) Ondansetron HCl 4 mg 04/17/19 11:00 04/18/19 08:51 Zofran IV 4 mg Q8H PRN Administration Nausea And Vomiting Sodium Chloride 10 ml 04/17/19 11:00 04/19/19 10:24 Sodium Chloride Flush Syringe 10 Ml IV 10 ml BID TIFFANY Administration Sodium Chloride 10 ml 04/17/19 11:00 Sodium Chloride Flush Syringe 10 Ml IV PRN PRN LINE FLUSH
[2019-04-19 15:34] LABS: Total Cells Counted 100 /mm3
--- NOTE | 2019-04-19 20:08 | Progress Note ---
Assessment and Plan Assessment and plan: 73-year-old woman with history of hep C, cirrhosis, questionable history of hepatocellular carcinoma which is being worked up at outside hospital. The patient has chronic ascites who gets frequent paracentesis, last paracentesis was 04/01/2019, was due for another on day of admission. She presented with hemoptysis and melena. Vital signs, stable respiratory rate 28, heart rate of 95 Labs, hemoglobin 9, sodium 126, potassium 6.2, BUN 37, elevated LFTs noted. Albumin 2.6. Ammonia elevated. Acute upper GI bleed Concern for variceal bleeding, GI consulted, hemoglobin currently stable. Management per GI PPI drip, IVF, octreotide ggt, sp EGD 04/17 showed esophageal varices, they were not actively bleeding, they were banded x5. -Hemoglobin stable -We will need beta-michael when blood pressure can tolerate it for treatment of portal hypertension Hepatitis C/cirrhosis/decompensated liver disease Ascites sp paracentesis 04/19, 6.6 L removed acute Hepatic encephalopathy lactulose dose increased Hyperkalemia, PINO likely due to vasomotor nephropathy cont insulin and D50, improving -Nephrology consult Hyponatremia due to fluid overload likely due to chronic ascites, CLD, improving, restart diuretics when BP improved DVT prophylaxis; SCDs and early ambulation in light of GI bleed. History Interval history: No fevers No further episodes of melena or hematemesis Patient has been lethargic Complaining of abdominal distention, family states that she is due for paracentesis Hospitalist Physical - Physical exam Narrative exam: General.: Mild to moderate distress, appears ill HEENT: Moist mucous membranes, extraocular muscles intact, no lymphadenopathy Neck: supple Cardiac: S1-S2 heard Lungs: clear to auscultation bilaterally Abdomen: soft , distended with shifting dullness, nontender Extremities: no edema clubbing or cyanosis Skin: no rash or lesions Neurologic: no gross focal deficits, lethargic Psych: calm, and cooperative, but confused and lethargic - Constitutional Vitals: Temp Pulse Resp BP Pulse Ox 97.6 F 119 H 19 102/51 99 04/19/19 19:00 04/19/19 18:00 04/19/19 18:00 04/19/19 18:00 04/19/19 18:00 Results - Labs CBC & Chem 7: 04/20/19 05:33 10/05/19 05:33 Labs: Laboratory Last Values WBC 14.3 K/mm3 (4.5-11.0) H 04/19/19 04:49 RBC 2.05 M/mm3 (3.65-5.03) L 04/19/19 04:49 Hgb 7.6 gm/dl (10.1-14.3) L 04/19/19 04:49 Hct 21.8 % (30.3-42.9) L 04/19/19 04:49 MCV 107 fl (79-97) H 04/19/19 04:49 MCH 37 pg (28-32) H 04/19/19 04:49 MCHC 35 % (30-34) H 04/19/19 04:49 RDW 13.2 % (13.2-15.2) 04/19/19 04:49 Plt Count 129 K/mm3 (140-440) L 04/19/19 04:49 [place] % (Auto) Head Of Data 04/18/19 03:24 Add Manual Diff Complete 04/19/19 04:49 Total Counted 100 04/19/19 04:49 Seg Neuts % (Manual) 78.0 % (40.0-70.0) H 04/19/19 04:49 Band Neutrophils % 0 % 04/19/19 04:49 Lymphocytes % (Manual) 9.0 % (13.4-35.0) L 04/19/19 04:49 Reactive Lymphs % (Man) 0 % 04/19/19 04:49 Monocytes % (Manual) 11.0 % (0.0-7.3) H 04/19/19 04:49 Eosinophils % (Manual) 0 % (0.0-4.3) 04/19/19 04:49 Basophils % (Manual) 0 % (0.0-1.8) 04/19/19 04:49 Metamyelocytes % 2.0 % 04/19/19 04:49 Myelocytes % 0 % 04/19/19 04:49 Promyelocytes % 0 % 04/19/19 04:49 Blast Cells % 0 % 04/19/19 04:49 Nucleated RBC % 2.0 % (0.0-0.9) H 04/19/19 04:49 Seg Neutrophils # Man 11.2 K/mm3 (1.8-7.7) H 04/19/19 04:49 Band Neutrophils # 0.0 K/mm3 04/19/19 04:49 Lymphocytes # (Manual) 1.3 K/mm3 (1.2-5.4) 04/19/19 04:49 Abs React Lymphs (Man) 0.0 K/mm3 04/19/19 04:49 Monocytes # (Manual) 1.6 K/mm3 (0.0-0.8) H 04/19/19 04:49 Eosinophils # (Manual) 0.0 K/mm3 (0.0-0.4) 04/19/19 04:49 Basophils # (Manual) 0.0 K/mm3 (0.0-0.1) 04/19/19 04:49 Metamyelocytes # 0.3 K/mm3 04/19/19 04:49 Myelocytes # 0.0 K/mm3 04/19/19 04:49 Promyelocytes # 0.0 K/mm3 04/19/19 04:49 Blast Cells # 0.0 K/mm3 04/19/19 04:49 WBC Morphology Not Reportable 04/19/19 04:49 Hypersegmented Neuts Not Reportable 04/19/19 04:49 Hyposegmented Neuts Not Reportable 04/19/19 04:49 Hypogranular Neuts Not Reportable 04/19/19 04:49 Smudge Cells Not Reportable 04/19/19 04:49 Toxic Granulation Not Reportable 04/19/19 04:49 Toxic Vacuolation Not Reportable 04/19/19 04:49 Dohle Bodies Not Reportable 04/19/19 04:49 Pelger-Huet Anomaly Not Reportable 04/19/19 04:49 Alicia Rods Not Reportable 04/19/19 04:49 Platelet Estimate Consistent w auto 04/19/19 04:49 Clumped Platelets Not Reportable 04/19/19 04:49 Plt Clumps, EDTA Not Reportable 04/19/19 04:49 Large Platelets Not Reportable 04/19/19 04:49 Giant Platelets Not Reportable 04/19/19 04:49 Platelet Satelliting Not Reportable 04/19/19 04:49 Plt Morphology Comment Not Reportable 04/19/19 04:49 RBC Morphology Not Reportable 04/19/19 04:49 Dimorphic RBCs Not Reportable 04/19/19 04:49 Polychromasia Not Reportable 04/19/19 04:49 Hypochromasia Not Reportable 04/19/19 04:49 Poikilocytosis Few 04/19/19 04:49 Anisocytosis Few 04/19/19 04:49 Microcytosis Not Reportable 04/19/19 04:49 Macrocytosis Not Reportable 04/19/19 04:49 Spherocytes Not Reportable 04/19/19 04:49 Pappenheimer Bodies Not Reportable 04/19/19 04:49 Sickle Cells Not Reportable 04/19/19 04:49 Target Cells 2+ 04/19/19 04:49 Tear Drop Cells Rare 04/19/19 04:49 Ovalocytes Few 04/19/19 04:49 Helmet Cells Not Reportable 04/19/19 04:49 E[place] Bodies Not Reportable 04/19/19 04:49 Franklin Rings Not Reportable 04/19/19 04:49 Harrod Cells Not Reportable 04/19/19 04:49 Bite Cells Not Reportable 04/19/19 04:49 Crenated Cell Not Reportable 04/19/19 04:49 Elliptocytes Not Reportable 04/19/19 04:49 Acanthocytes (Spur) Not Reportable 04/19/19 04:49 Rouleaux Not Reportable 04/19/19 04:49 Hemoglobin C Crystals Not Reportable 04/19/19 04:49 Schistocytes Not Reportable 04/19/19 04:49 Malaria parasites Not Reportable 04/19/19 04:49 David Bodies Not Reportable 04/19/19 04:49 Hem Pathologist Commnt No 04/19/19 04:49 PT 20.7 Sec. (12.2-14.9) H 04/19/19 10:00 INR 1.82 (0.87-1.13) H 04/19/19 10:00 APTT 26.3 Sec. (24.2-36.6) 04/17/19 07:32 Sodium 137 mmol/L (137-145) D 04/19/19 10:00 Potassium 5.3 mmol/L (3.6-5.0) H 04/19/19 10:00 Chloride 97.7 mmol/L (98-107) L 04/19/19 10:00 Carbon Dioxide 25 mmol/L (22-30) D 04/19/19 10:00 Anion Gap 20 mmol/L 04/19/19 10:00 BUN 56 mg/dL (7-17) H 04/19/19 10:00 Creatinine 1.2 mg/dL (0.7-1.2) 04/19/19 10:00 Estimated GFR 53 ml/min 04/19/19 10:00 BUN/Creatinine Ratio 47 % 04/19/19 10:00 Glucose 174 mg/dL (65-100) H 04/19/19 10:00 POC Glucose 190 (70-105) H 04/19/19 14:23 Calcium 9.2 mg/dL (8.4-10.2) 04/19/19 10:00 Total Bilirubin 7.20 mg/dL (0.1-1.2) H 04/19/19 10:00 AST 2652 units/L (5-40) H 04/19/19 10:00 ALT 6196 units/L (7-56) H 04/19/19 10:00 Alkaline Phosphatase 340 units/L (35-129) H 04/19/19 10:00 Ammonia 74.0 umol/L (25-60) H 04/19/19 04:49 Total Protein 5.5 g/dL (6.3-8.2) L 04/19/19 10:00 Albumin 3.2 g/dL (3.9-5) L 04/19/19 10:00 Albumin/Globulin Ratio 1.4 % 04/19/19 10:00 Lipase 69 units/L (13-60) H 04/17/19 07:32 Urine Color Yellow (Yellow) 04/17/19 10:50 Urine Turbidity Clear (Clear) 04/17/19 10:50 Urine pH 6.0 (5.0-7.0) 04/17/19 10:50 Ur Specific [place] 1.006 (1.003-1.030) 04/17/19 10:50 Urine Protein <15 mg/dl mg/dL (Negative) 04/17/19 10:50 Urine Glucose (UA) >=500 mg/dL (Negative) 04/17/19 10:50 Urine Ketones Neg mg/dL (Negative) 04/17/19 10:50 Urine Blood Mod (Negative) 04/17/19 10:50 Urine Nitrite Neg (Negative) 04/17/19 10:50 Urine Bilirubin Neg (Negative) 04/17/19 10:50 Urine Urobilinogen < 2.0 mg/dL (<2.0) 04/17/19 10:50 Ur Leukocyte Esterase Lg (Negative) 04/17/19 10:50 Urine WBC (Auto) 25.0 /HPF (0.0-6.0) H 04/17/19 10:50 Urine RBC (Auto) 6.0 /HPF (0.0-6.0) 04/17/19 10:50 U Epithel Cells (Auto) 1.0 /HPF (0-13.0) 04/17/19 10:50 Urine Bacteria (Auto) 1+ /HPF (Negative) 04/17/19 10:50 Urine Mucus Few /HPF 04/17/19 10:50 Fluid Type Ascitic 04/18/19 Unknown Fluid Color Yellow 04/18/19 Unknown Fluid Appearance Cloudy 04/18/19 Unknown Fluid WBC 65 /mm3 04/18/19 Unknown Fluid RBC 125 /mm3 04/18/19 Unknown Fluid Diff Comment 04/18/19 Unknown Fluid Seg Neutrophils 29.0 % 04/18/19 Unknown Fluid Lymphocytes 43.0 % 04/18/19 Unknown Fluid Reactive Lymphs 6.0 % 04/18/19 Unknown Fluid Monocytes 22.0 % 04/18/19 Unknown Fluid Eosinophils Not Reportable 04/18/19 Unknown Fluid Basophils Not Reportable 04/18/19 Unknown Hepatitis A IgM Ab Non-reactive (NonReactive) 04/18/19 10:50 Hep Bs Antigen Non-reactive (Negative) 04/18/19 10:50 Hep B Core IgM Ab Non-reactive (NonReactive) 04/18/19 10:50 Hepatitis C Antibody Reactive (NonReactive) A 04/18/19 10:50 Blood Type O POSITIVE 04/17/19 07:32 Antibody Screen Negative 04/17/19 07:32 Active Medications - Current Medications Current Medications: Generic Name Dose Route Start Last Admin Trade Name Freq PRN Reason Stop Dose Admin Acetaminophen 650 mg 04/17/19 11:00 Tylenol PO Q4H PRN Pain MILD(1-3)/Fever >100.5/TILLMAN Dextrose 25 ml 04/18/19 10:00 04/19/19 17:28 D50w (25gm) Syringe IV Not Given Q6H TIFFANY Hydromorphone HCl 0.25 mg 04/17/19 11:00 04/17/19 17:01 Dilaudid IV 0.25 mg Q3H PRN Administration Pain, Moderate (4-6) Pantoprazole Sodium 80 mg/ 100 mls @ 10 mls/hr 04/17/19 08:00 04/19/19 17:43 Sodium Chloride IV 8 mg/hr DIRECT TIFFANY 10 mls/hr Administration 8 MG/HR Octreotide Acetate 500 mcg/ 101 mls @ 5.05 mls/hr 04/17/19 10:00 04/19/19 14:19 Sodium Chloride IV 25 mcg/hr TITR TIFFANY 5.05 mls/hr Administration Protocol 25 MCG/HR Ceftriaxone Sodium 1 gm in 50 mls @ 100 mls/hr 04/17/19 10:00 04/19/19 10:24 Rocephin/Ns 1 Gm/50 Ml IV 04/23/19 10:29 100 mls/hr Q24HR TIFFANY Administration Protocol Insulin Human Regular 5 units 04/18/19 08:30 04/19/19 17:28 Humulin R IV 5 units Q6HR TIFFANY Administration Lactulose 10 gm 04/19/19 10:00 04/19/19 10:23 Cephulac PO 10 gm BID TIFFANY Administration Morphine Sulfate 2 mg 04/17/19 11:00 04/17/19 22:40 Morphine IV 2 mg Q4H PRN Administration Pain, Moderate (4-6) Ondansetron HCl 4 mg 04/17/19 11:00 04/18/19 08:51 Zofran IV 4 mg Q8H PRN Administration Nausea And Vomiting Rifaximin 550 mg 04/19/19 22:00 Xifaxan PO BID TIFFANY Sodium Chloride 10 ml 04/17/19 11:00 04/19/19 10:24 Sodium Chloride Flush Syringe 10 Ml IV 10 ml BID TIFFANY Administration Sodium Chloride 10 ml 04/17/19 11:00 Sodium Chloride Flush Syringe 10 Ml IV PRN PRN LINE FLUSH Nutrition/Malnutrition Assess - Dietary Evaluation Nutrition/Malnutrition Findings: Nutrition Notes Start: 04/18/19 12:01 Freq: Status: Active Protocol: Document 04/18/19 12:01 PS (Rec: 04/18/19 12:52 PS [id number]) Co-Sign 04/18/19 12:01 LP Nutrition Notes Need for Assessment generated from: Low BMI Initial or Follow up Assessment Other Pertinent Diagnosis Liver Cirrhosis, Hepatitis C, Ascites Current Diet Clear Liquid Diet Labs/Tests Na 129 K 6.6 BUN 47 Creat. 1.3 Glu 191 POC Glu 297 Bilirubin 3.2 AST 2899 ALT 3695 Albumin 2.8 Pertinent Medications Reviewed Height 5 ft 1 in Weight 63.6 kg Usual Body Weight 66.81 kg [place] Body Weight (kg) 47.72 BMI 26.4 Intake Prior to Admission Poor Weight change and time frame 3.21 kg wt loss. Unknown time frame. Weight Status Appropriate Subjective/Other Information Consult for Low BMI. Pt. daughter and present during visit. Pt. was tired and struggled answering questions. stated her normal body wt is around 147. Pt. daughter stated she's eating <50% of normal diet this past month. Pt. currently has appetite. Pt. showed temporal and clavical wasting. Burn Absent Trauma Absent Minimum of two criteria Yes Energy Intake (non-severe) <75% Estimated Energy Requirement >7 days Muscle Mass Mild Depletion (non-severe) Fluid Accumulation Mild (non-severe) #2 Nutrition Diagnosis Malnutrition Etiology poor oral intake As Evidenced by Signs and Symptoms < or equal to <75% percent of estimated energy requirements in > or equal to 7 days. Mild muscle mass depletion. Fluid accumulation/ascites. #1 Nutrition Diagnosis Inadequate oral intake Etiology poor appetite As Evidenced by Signs and Symptoms pt. daughter states she has eaten <50% of her normal intake in the past month. Is patient on ventilator? No Is Patient Ambulatory and/or Out of Bed Yes REE-([place]-. or-ambulatory/OOB) [ [id number] [id number]] Calculation [facility] Additional Notes Pro: 63 - 76 g (1-1.2 g/kg) Fluid: 1kcal/ml Nutrition Intervention Change Diet Order: Clear Liquid Diet Add Supplement/Snack (indicate name/kcal Ensure Clear Apple and Mixed /protein ) Vargas BID Provides kCal: 480 Provides Protein (gm) 16 Goal #1 Meet 80% of estimated energy/ protein requirements. Anticipated Discharge Needs: Low Sodium Diet Follow-Up By: 04/22/19 Additional Comments F/U for PO/ONS intakes/ tolerance
[2019-04-19] MEDS: RIFAXIMIN 550 MG TAB PO SCH (23:16)
[2019-04-20] MEDS: INSULIN REGULAR, HUMAN 100 UNITS/1 ML IV SCH ×2 (00:28→06:28)
[2019-04-20] MEDS: DEXTROSE 50% IN WATER (25GM) 50 ML SYRINGE IV SCH ×2 (04:37→19:27)
[2019-04-20 06:07] LABS: Hemoglobin 7.3 gm/dl (10.1-14.3); Mean Corpuscular HGB Conc 35 % (30-34); Mean Corpuscular Volume 106 fl (79-97); Red Blood Count 1.98 M/mm3 (3.65-5.03); Red Cell Distribution Width 12.9 % (13.2-15.2)
[2019-04-20 06:12] LABS: Platelet Count 91 K/mm3 (140-440)
[2019-04-20 06:19] LABS: BUN/Creatinine Ratio 64; Blood Urea Nitrogen 45 mg/dL (7-17); Hemolysis Index 21
[2019-04-20] MEDS: OCTREOTIDE 500 MCG in SODIUM CHLORIDE 0.9% 100 ML IV SCH (06:21)
[2019-04-20] MEDS: PANTOPRAZOLE 80 MG in SODIUM CHLORIDE 0.9% 100 ML IV SCH (06:22)
[2019-04-20] MEDS ORDERED: SODIUM CHLORIDE 0.9% 500 ML 500 ML IV ONE (06:41)
[2019-04-20 08:35] LABS: Total Cells Counted 100
[2019-04-20 08:36] LABS: Anisocytosis Few; Band Neutrophils # (Manual) 0.8 K/mm3; Basophils % (Manual) 0 % (0.0-1.8); Eosinophils % (Manual) 0 % (0.0-4.3); Hypochromasia 1+; Target Cells 1+
[2019-04-20 08:37] LABS: Poikilocytosis Few
[2019-04-20] MEDS ORDERED: LORazepam 2 MG/ML VIAL IV NR (09:00)
--- NOTE | 2019-04-20 11:04 | Progress Note ---
Assessment and Plan Assessment and plan: 73-year-old woman with history of hep C, cirrhosis, questionable history of hepatocellular carcinoma which is being worked up at outside hospital. The patient has chronic ascites who gets frequent paracentesis, last paracentesis was 04/01/2019, was due for another on day of admission. She presented with hemoptysis and melena. Acute upper GI bleed/acute blood anemia Concern for variceal bleeding, GI consulted, hemoglobin currently stable. Management per GI PPI drip, octreotide ggt, sp EGD 04/17 showed esophageal varices, they were not actively bleeding, they were banded. -Hemoglobin stable -will need beta-michael when blood pressure can tolerate it for treatment of portal hypertension Liver mass which was being worked up at outside hospital Concern for HCC, MRI liver Hepatitis C/cirrhosis/decompensated liver disease Ascites sp paracentesis 04/19, 6.6 L removed acute Hepatic encephalopathy lactulose dose increased, added enema Hyperkalemia, PINO likely due to vasomotor nephropathy sp insulin and D50, resolved -Nephrology consult appreciated Hyponatremia due to fluid overload likely due to chronic ascites, CLD, improving, restart diuretics when BP improved DVT prophylaxis; SCDs and early ambulation in light of GI bleed. History Interval history: No fevers No further episodes of melena or hematemesis Patient has been lethargic and confused Hospitalist Physical - Physical exam Narrative exam: General.: Mild to moderate distress, appears ill HEENT: Moist mucous membranes, extraocular muscles intact, no lymphadenopathy Neck: supple Cardiac: S1-S2 heard Lungs: clear to auscultation bilaterally Abdomen: soft , distended with shifting dullness, nontender Extremities: no edema clubbing or cyanosis Skin: no rash or lesions Neurologic: no gross focal deficits, lethargic Psych: calm, and cooperative, but confused and lethargic - Constitutional Vitals: Temp Pulse Resp BP Pulse Ox 97.9 F 112 H 10 L 112/38 100 04/20/19 08:00 04/20/19 06:00 04/20/19 06:00 04/20/19 06:00 04/20/19 06:00 Results - Labs CBC & Chem 7: 04/20/19 05:33 04/20/19 05:33 Labs: Laboratory Last Values WBC 12.8 K/mm3 (4.5-11.0) H 04/20/19 05:33 RBC 1.98 M/mm3 (3.65-5.03) L 04/20/19 05:33 Hgb 7.3 gm/dl (10.1-14.3) L 04/20/19 05:33 Hct 21.0 % (30.3-42.9) L 04/20/19 05:33 MCV 106 fl (79-97) H 04/20/19 05:33 MCH 37 pg (28-32) H 04/20/19 05:33 MCHC 35 % (30-34) H 04/20/19 05:33 RDW 12.9 % (13.2-15.2) L 04/20/19 05:33 Plt Count 91 K/mm3 (140-440) L 04/20/19 05:33 Schuyler % (Auto) Child Development Director 04/18/19 03:24 Add Manual Diff Complete 04/20/19 05:33 Total Counted 100 04/20/19 05:33 Seg Neuts % (Manual) 87.0 % (40.0-70.0) H 04/20/19 05:33 Band Neutrophils % 6.0 % 04/20/19 05:33 Lymphocytes % (Manual) 1.0 % (13.4-35.0) L 04/20/19 05:33 Reactive Lymphs % (Man) 0 % 04/20/19 05:33 Monocytes % (Manual) 6.0 % (0.0-7.3) 04/20/19 05:33 Eosinophils % (Manual) 0 % (0.0-4.3) 04/20/19 05:33 Basophils % (Manual) 0 % (0.0-1.8) 04/20/19 05:33 Metamyelocytes % 0 % 04/20/19 05:33 Myelocytes % 0 % 04/20/19 05:33 Promyelocytes % 0 % 04/20/19 05:33 Blast Cells % 0 % 04/20/19 05:33 Nucleated RBC % 7.0 % (0.0-0.9) H 04/20/19 05:33 Seg Neutrophils # Man 11.1 K/mm3 (1.8-7.7) H 04/20/19 05:33 Band Neutrophils # 0.8 K/mm3 04/20/19 05:33 Lymphocytes # (Manual) 0.1 K/mm3 (1.2-5.4) L 04/20/19 05:33 Abs React Lymphs (Man) 0.0 K/mm3 04/20/19 05:33 Monocytes # (Manual) 0.8 K/mm3 (0.0-0.8) 04/20/19 05:33 Eosinophils # (Manual) 0.0 K/mm3 (0.0-0.4) 04/20/19 05:33 Basophils # (Manual) 0.0 K/mm3 (0.0-0.1) 04/20/19 05:33 Metamyelocytes # 0.0 K/mm3 04/20/19 05:33 Myelocytes # 0.0 K/mm3 04/20/19 05:33 Promyelocytes # 0.0 K/mm3 04/20/19 05:33 Blast Cells # 0.0 K/mm3 04/20/19 05:33 WBC Morphology Not Reportable 04/20/19 05:33 Hypersegmented Neuts Not Reportable 04/20/19 05:33 Hyposegmented Neuts Not Reportable 04/20/19 05:33 Hypogranular Neuts Not Reportable 04/20/19 05:33 Smudge Cells Not Reportable 04/20/19 05:33 Toxic Granulation Not Reportable 04/20/19 05:33 Toxic Vacuolation Not Reportable 04/20/19 05:33 Dohle Bodies Not Reportable 04/20/19 05:33 Pelger-Huet Anomaly Not Reportable 04/20/19 05:33 Alicia Rods Not Reportable 04/20/19 05:33 Platelet Estimate Not Reportable 04/20/19 05:33 Clumped Platelets Not Reportable 04/20/19 05:33 Plt Clumps, EDTA Not Reportable 04/20/19 05:33 Large Platelets Not Reportable 04/20/19 05:33 Giant Platelets Not Reportable 04/20/19 05:33 Platelet Satelliting Not Reportable 04/20/19 05:33 Plt Morphology Comment Not Reportable 04/20/19 05:33 RBC Morphology Not Reportable 04/20/19 05:33 Dimorphic RBCs Not Reportable 04/20/19 05:33 Polychromasia 1+ 04/20/19 05:33 Hypochromasia 1+ 04/20/19 05:33 Poikilocytosis Few 04/20/19 05:33 Anisocytosis Few 04/20/19 05:33 Microcytosis Not Reportable 04/20/19 05:33 Macrocytosis Not Reportable 04/20/19 05:33 Spherocytes Not Reportable 04/20/19 05:33 Pappenheimer Bodies Not Reportable 04/20/19 05:33 Sickle Cells Not Reportable 04/20/19 05:33 Target Cells 1+ 04/20/19 05:33 Tear Drop Cells Not Reportable 04/20/19 05:33 Ovalocytes Not Reportable 04/20/19 05:33 Helmet Cells Not Reportable 04/20/19 05:33 Ewing-Tancred Bodies Not Reportable 04/20/19 05:33 Gill Rings Not Reportable 04/20/19 05:33 Kenton Cells Not Reportable 04/20/19 05:33 Bite Cells Not Reportable 04/20/19 05:33 Crenated Cell Not Reportable 04/20/19 05:33 Elliptocytes Not Reportable 04/20/19 05:33 Acanthocytes (Spur) Not Reportable 04/20/19 05:33 Rouleaux Not Reportable 04/20/19 05:33 Hemoglobin C Crystals Not Reportable 04/20/19 05:33 Schistocytes Not Reportable 04/20/19 05:33 Malaria parasites Not Reportable 04/20/19 05:33 David Bodies Not Reportable 04/20/19 05:33 Hem Pathologist Commnt No 04/20/19 05:33 PT 20.7 Sec. (12.2-14.9) H 04/19/19 10:00 INR 1.82 (0.87-1.13) H 04/19/19 10:00 APTT 26.3 Sec. (24.2-36.6) 04/17/19 07:32 Sodium 142 mmol/L (137-145) 04/20/19 05:33 Potassium 4.5 mmol/L (3.6-5.0) 04/20/19 05:33 Chloride 103.7 mmol/L (98-107) 04/20/19 05:33 Carbon Dioxide 25 mmol/L (22-30) 04/20/19 05:33 Anion Gap 18 mmol/L 04/20/19 05:33 BUN 45 mg/dL (7-17) H 04/20/19 05:33 Creatinine 0.7 mg/dL (0.7-1.2) 04/20/19 05:33 Estimated GFR > 60 ml/min 04/20/19 05:33 BUN/Creatinine Ratio 64 % 04/20/19 05:33 Glucose 148 mg/dL (65-100) H 04/20/19 05:33 POC Glucose 135 (70-105) H 04/20/19 08:12 Calcium 9.0 mg/dL (8.4-10.2) 04/20/19 05:33 Total Bilirubin 7.20 mg/dL (0.1-1.2) H 04/19/19 10:00 AST 2652 units/L (5-40) H 04/19/19 10:00 ALT 6196 units/L (7-56) H 04/19/19 10:00 Alkaline Phosphatase 340 units/L (35-129) H 04/19/19 10:00 Ammonia 82.0 umol/L (25-60) H 04/20/19 05:33 Total Protein 5.5 g/dL (6.3-8.2) L 04/19/19 10:00 Albumin 3.2 g/dL (3.9-5) L 04/19/19 10:00 Albumin/Globulin Ratio 1.4 % 04/19/19 10:00 Lipase 69 units/L (13-60) H 04/17/19 07:32 Urine Color Yellow (Yellow) 04/17/19 10:50 Urine Turbidity Clear (Clear) 04/17/19 10:50 Urine pH 6.0 (5.0-7.0) 04/17/19 10:50 Ur Specific [place] 1.006 (1.003-1.030) 04/17/19 10:50 Urine Protein <15 mg/dl mg/dL (Negative) 04/17/19 10:50 Urine Glucose (UA) >=500 mg/dL (Negative) 04/17/19 10:50 Urine Ketones Neg mg/dL (Negative) 04/17/19 10:50 Urine Blood Mod (Negative) 04/17/19 10:50 Urine Nitrite Neg (Negative) 04/17/19 10:50 Urine Bilirubin Neg (Negative) 04/17/19 10:50 Urine Urobilinogen < 2.0 mg/dL (<2.0) 04/17/19 10:50 Ur Leukocyte Esterase Lg (Negative) 04/17/19 10:50 Urine WBC (Auto) 25.0 /HPF (0.0-6.0) H 04/17/19 10:50 Urine RBC (Auto) 6.0 /HPF (0.0-6.0) 04/17/19 10:50 U Epithel Cells (Auto) 1.0 /HPF (0-13.0) 04/17/19 10:50 Urine Bacteria (Auto) 1+ /HPF (Negative) 04/17/19 10:50 Urine Mucus Few /HPF 04/17/19 10:50 Fluid Type Ascitic 04/18/19 Unknown Fluid Color Yellow 04/18/19 Unknown Fluid Appearance Cloudy 04/18/19 Unknown Fluid WBC 65 /mm3 04/18/19 Unknown Fluid RBC 125 /mm3 04/18/19 Unknown Fluid Diff Comment 04/18/19 Unknown Fluid Seg Neutrophils 29.0 % 04/18/19 Unknown Fluid Lymphocytes 43.0 % 04/18/19 Unknown Fluid Reactive Lymphs 6.0 % 04/18/19 Unknown Fluid Monocytes 22.0 % 04/18/19 Unknown Fluid Eosinophils Not Reportable 04/18/19 Unknown Fluid Basophils Not Reportable 04/18/19 Unknown Hepatitis A IgM Ab Non-reactive (NonReactive) 04/18/19 10:50 Hep Bs Antigen Non-reactive (Negative) 04/18/19 10:50 Hep B Core IgM Ab Non-reactive (NonReactive) 04/18/19 10:50 Hepatitis C Antibody Reactive (NonReactive) A 04/18/19 10:50 Blood Type O POSITIVE 04/17/19 07:32 Antibody Screen Negative 04/17/19 07:32 Active Medications - Current Medications Current Medications: Generic Name Dose Route Start Last Admin Trade Name Freq PRN Reason Stop Dose Admin Acetaminophen 650 mg 04/17/19 11:00 Tylenol PO Q4H PRN Pain MILD(1-3)/Fever >100.5/TILLMAN Dextrose 25 ml 04/18/19 10:00 04/20/19 04:37 D50w (25gm) Syringe IV 25 ml Q6H TIFFANY Administration Hydromorphone HCl 0.25 mg 04/17/19 11:00 04/17/19 17:01 Dilaudid IV 0.25 mg Q3H PRN Administration Pain, Moderate (4-6) Pantoprazole Sodium 80 mg/ 100 mls @ 10 mls/hr 04/17/19 08:00 04/20/19 06:22 Sodium Chloride IV 04/20/19 14:00 8 mg/hr DIRECT TIFFANY 10 mls/hr Administration 8 MG/HR Octreotide Acetate 500 mcg/ 101 mls @ 5.05 mls/hr 04/17/19 10:00 04/20/19 06:21 Sodium Chloride IV 25 mcg/hr TITR TIFFANY 5.05 mls/hr Administration Protocol 25 MCG/HR Ceftriaxone Sodium 1 gm in 50 mls @ 100 mls/hr 04/17/19 10:00 04/19/19 10:24 Rocephin/Ns 1 Gm/50 Ml IV 04/23/19 10:29 100 mls/hr Q24HR TIFFANY Administration Protocol Insulin Human Regular 5 units 04/18/19 08:30 04/20/19 06:28 Humulin R IV 5 units Q6HR TIFFANY Administration Lactulose 20 gm 04/20/19 06:42 Cephulac PO BID TIFFANY Lorazepam 2 mg 04/20/19 09:00 04/20/19 09:55 Ativan IV 04/20/19 23:59 2 mg [employer] NR Administration Morphine Sulfate 2 mg 04/17/19 11:00 04/17/19 22:40 Morphine IV 2 mg Q4H PRN Administration Pain, Moderate (4-6) Ondansetron HCl 4 mg 04/17/19 11:00 04/18/19 08:51 Zofran IV 4 mg Q8H PRN Administration Nausea And Vomiting Pantoprazole Sodium 40 mg 04/20/19 22:00 Protonix IV 04/21/19 12:00 BID TIFFANY Pantoprazole Sodium 40 mg 04/21/19 22:00 Protonix PO BID TIFFANY Rifaximin 550 mg 04/19/19 22:00 04/19/19 23:16 Xifaxan PO 550 mg BID TIFFANY Administration Sodium Chloride 10 ml 04/17/19 11:00 04/20/19 09:55 Sodium Chloride Flush Syringe 10 Ml IV 10 ml BID TIFFANY Administration Sodium Chloride 10 ml 04/17/19 11:00 Sodium Chloride Flush Syringe 10 Ml IV PRN PRN LINE FLUSH Nutrition/Malnutrition Assess - Dietary Evaluation Nutrition/Malnutrition Findings: Nutrition Notes Start: 04/18/19 12:01 Freq: Status: Active Protocol: Document 04/18/19 12:01 PS (Rec: 04/18/19 12:52 PS [id number]) Co-Sign 04/18/19 12:01 LP Nutrition Notes Need for Assessment generated from: Low BMI Initial or Follow up Assessment Other Pertinent Diagnosis Liver Cirrhosis, Hepatitis C, Ascites Current Diet Clear Liquid Diet Labs/Tests Na 129 K 6.6 BUN 47 Creat. 1.3 Glu 191 POC Glu 297 Bilirubin 3.2 AST 2899 ALT 3695 Albumin 2.8 Pertinent Medications Reviewed Height 5 ft 1 in Weight 63.6 kg Usual Body Weight 66.81 kg [place] Body Weight (kg) 47.72 BMI 26.4 Intake Prior to Admission Poor Weight change and time frame 3.21 kg wt loss. Unknown time frame. Weight Status Appropriate Subjective/Other Information Consult for Low BMI. Pt. daughter and present during visit. Pt. was tired and struggled answering questions. stated her normal body wt is around 147. Pt. daughter stated she's eating <50% of normal diet this past month. Pt. currently has appetite. Pt. showed temporal and clavical wasting. Burn Absent Trauma Absent Minimum of two criteria Yes Energy Intake (non-severe) <75% Estimated Energy Requirement >7 days Muscle Mass Mild Depletion (non-severe) Fluid Accumulation Mild (non-severe) #2 Nutrition Diagnosis Malnutrition Etiology poor oral intake As Evidenced by Signs and Symptoms < or equal to <75% percent of estimated energy requirements in > or equal to 7 days. Mild muscle mass depletion. Fluid accumulation/ascites. #1 Nutrition Diagnosis Inadequate oral intake Etiology poor appetite As Evidenced by Signs and Symptoms pt. daughter states she has eaten <50% of her normal intake in the past month. Is patient on ventilator? No Is Patient Ambulatory and/or Out of Bed Yes REE-([facility]-ambulatory/OOB) [ [id number] [id number]] Calculation Used for Recommendations [facility] Additional Notes Pro: 63 - 76 g (1-1.2 g/kg) Fluid: 1kcal/ml Nutrition Intervention Change Diet Order: Clear Liquid Diet Add Supplement/Snack (indicate name/kcal Ensure Clear Apple and Mixed /protein ) Vargas BID Provides kCal: 480 Provides Protein (gm) 16 Goal #1 Meet 80% of estimated energy/ protein requirements. Anticipated Discharge Needs: Low Sodium Diet Follow-Up By: 04/22/19 Additional Comments F/U for PO/ONS intakes/ tolerance
[2019-04-20] MEDS: LACTULOSE 20 GM/30 ML ORAL LIQD PO SCH ×2 (12:47→21:35)
[2019-04-20] MEDS: RIFAXIMIN 550 MG TAB PO SCH ×2 (12:47→21:35)
[2019-04-20] MEDS: cefTRIAXone/NS 1 GM/50 ML 1 GM/50 ML BAG IV SCH (13:21)
[2019-04-20] MEDS ORDERED: LACTULOSE ENEMA 1000 ML PR ONE (14:00)
--- NOTE | 2019-04-20 14:02 | Gastroenterology Progress Note ---
Assessment and Plan 1/ GI bleed: h/o cirrhosis s/p egd w./ banding - continue Octreotide IV, Ceftriaxone - follow h/h, no need to transfuse at this time- follow closely 2 Ascites: s/p LVP w/ negative for SBP - follow - continue lactulose 3. Liver mass: reported possible HCC - for MRI today - no changes, will follow Subjective Date of service: 04/20/19 Principal diagnosis: PINO Interval history: - no further signs bleeding overnight per staff. more alert Objective - Constitutional Vitals: Temp Pulse Resp BP Pulse Ox 97.9 F 113 H 18 122/48 95 04/20/19 08:00 04/20/19 10:00 04/20/19 10:00 04/20/19 10:00 04/20/19 10:00 General appearance: no acute distress - EENT Eyes: PERRL - Respiratory Respiratory: bilateral: CTA - Cardiovascular Rhythm: regular Heart Sounds: Present: S1 & S2 - Gastrointestinal General gastrointestinal: Present: soft, non-tender, non-distended - Labs CBC & Chem 7: 04/20/19 05:33 04/20/19 05:33 Labs: Laboratory Results - last 24 hr 04/18/19 04/19/19 04/19/19 Unknown 14:23 17:12 WBC RBC Hgb Hct MCV MCH MCHC RDW Plt Count Add Manual Diff Total Counted Seg Neuts % (Manual) Band Neutrophils % Lymphocytes % (Manual) Reactive Lymphs % (Man) Monocytes % (Manual) Eosinophils % (Manual) Basophils % (Manual) Metamyelocytes % Myelocytes % Promyelocytes % Blast Cells % Nucleated RBC % Seg Neutrophils # Man Band Neutrophils # Lymphocytes # (Manual) Abs React Lymphs (Man) Monocytes # (Manual) Eosinophils # (Manual) Basophils # (Manual) Metamyelocytes # Myelocytes # Promyelocytes # Blast Cells # WBC Morphology Hypersegmented Neuts Hyposegmented Neuts Hypogranular Neuts Smudge Cells Toxic Granulation Toxic Vacuolation Dohle Bodies Pelger-Huet Anomaly Alicia Rods Platelet Estimate Clumped Platelets Plt Clumps, EDTA Large Platelets Giant Platelets Platelet Satelliting Plt Morphology Comment RBC Morphology Dimorphic RBCs Polychromasia Hypochromasia Poikilocytosis Anisocytosis Microcytosis Macrocytosis Spherocytes Pappenheimer Bodies Sickle Cells Target Cells Tear Drop Cells Ovalocytes Helmet Cells [place] Bodies [place] Rings [place] Cells Bite Cells Crenated Cell Elliptocytes Acanthocytes (Spur) Rouleaux Hemoglobin C Crystals Schistocytes Malaria parasites David Bodies Hem Pathologist Commnt Sodium Potassium Chloride Carbon Dioxide Anion Gap BUN Creatinine Estimated GFR BUN/Creatinine Ratio Glucose POC Glucose 190 H 200 H Calcium Ammonia Fluid Type Ascitic Fluid Color Yellow Fluid Appearance Cloudy Fluid WBC 65 Fluid RBC 125 Fluid Diff Comment Fluid Seg Neutrophils 29.0 Fluid Lymphocytes 43.0 Fluid Reactive Lymphs 6.0 Fluid Monocytes 22.0 Fluid Eosinophils Not Reportable Fluid Basophils Not Reportable 04/19/19 04/19/19 04/19/19 18:42 20:04 21:51 WBC RBC Hgb Hct MCV MCH MCHC RDW Plt Count Add Manual Diff Total Counted Seg Neuts % (Manual) Band Neutrophils % Lymphocytes % (Manual) Reactive Lymphs % (Man) Monocytes % (Manual) Eosinophils % (Manual) Basophils % (Manual) Metamyelocytes % Myelocytes % Promyelocytes % Blast Cells % Nucleated RBC % Seg Neutrophils # Man Band Neutrophils # Lymphocytes # (Manual) Abs React Lymphs (Man) Monocytes # (Manual) Eosinophils # (Manual) Basophils # (Manual) Metamyelocytes # Myelocytes # Promyelocytes # Blast Cells # WBC Morphology Hypersegmented Neuts Hyposegmented Neuts Hypogranular Neuts Smudge Cells Toxic Granulation Toxic Vacuolation Dohle Bodies Pelger-Huet Anomaly Alicia Rods Platelet Estimate Clumped Platelets Plt Clumps, EDTA Large Platelets Giant Platelets Platelet Satelliting Plt Morphology Comment RBC Morphology Dimorphic RBCs Polychromasia Hypochromasia Poikilocytosis Anisocytosis Microcytosis Macrocytosis Spherocytes Pappenheimer Bodies Sickle Cells Target Cells Tear Drop Cells Ovalocytes Helmet Cells [place] Bodies [place] Rings [place] Cells Bite Cells Crenated Cell Elliptocytes Acanthocytes (Spur) Rouleaux Hemoglobin C Crystals Schistocytes Malaria parasites David Bodies Hem Pathologist Commnt Sodium Potassium Chloride Carbon Dioxide Anion Gap BUN Creatinine Estimated GFR BUN/Creatinine Ratio Glucose POC Glucose 180 H 176 H 145 H Calcium Ammonia Fluid Type Fluid Color Fluid Appearance Fluid WBC Fluid RBC Fluid Diff Comment Fluid Seg Neutrophils Fluid Lymphocytes Fluid Reactive Lymphs Fluid Monocytes Fluid Eosinophils Fluid Basophils 04/19/19 04/20/19 04/20/19 23:36 02:04 04:07 WBC RBC Hgb Hct MCV MCH MCHC RDW Plt Count Add Manual Diff Total Counted Seg Neuts % (Manual) Band Neutrophils % Lymphocytes % (Manual) Reactive Lymphs % (Man) Monocytes % (Manual) Eosinophils % (Manual) Basophils % (Manual) Metamyelocytes % Myelocytes % Promyelocytes % Blast Cells % Nucleated RBC % Seg Neutrophils # Man Band Neutrophils # Lymphocytes # (Manual) Abs React Lymphs (Man) Monocytes # (Manual) Eosinophils # (Manual) Basophils # (Manual) Metamyelocytes # Myelocytes # Promyelocytes # Blast Cells # WBC Morphology Hypersegmented Neuts Hyposegmented Neuts Hypogranular Neuts Smudge Cells Toxic Granulation Toxic Vacuolation Dohle Bodies Pelger-Huet Anomaly Alicia Rods Platelet Estimate Clumped Platelets Plt Clumps, EDTA Large Platelets Giant Platelets Platelet Satelliting Plt Morphology Comment RBC Morphology Dimorphic RBCs Polychromasia Hypochromasia Poikilocytosis Anisocytosis Microcytosis Macrocytosis Spherocytes Pappenheimer Bodies Sickle Cells Target Cells Tear Drop Cells Ovalocytes Helmet Cells [place] Bodies [place] Rings [place] Cells Bite Cells Crenated Cell Elliptocytes Acanthocytes (Spur) Rouleaux Hemoglobin C Crystals Schistocytes Malaria parasites David Bodies Hem Pathologist Commnt Sodium Potassium Chloride Carbon Dioxide Anion Gap BUN Creatinine Estimated GFR BUN/Creatinine Ratio Glucose POC Glucose 173 H 168 H 162 H Calcium Ammonia Fluid Type Fluid Color Fluid Appearance Fluid WBC Fluid RBC Fluid Diff Comment Fluid Seg Neutrophils Fluid Lymphocytes Fluid Reactive Lymphs Fluid Monocytes Fluid Eosinophils Fluid Basophils 04/20/19 04/20/19 04/20/19 05:33 05:33 05:33 WBC 12.8 H RBC 1.98 L Hgb 7.3 L Hct 21.0 L MCV 106 H MCH 37 H MCHC 35 H RDW 12.9 L Plt Count 91 L Add Manual Diff Complete Total Counted 100 Seg Neuts % (Manual) 87.0 H Band Neutrophils % 6.0 Lymphocytes % (Manual) 1.0 L Reactive Lymphs % (Man) 0 Monocytes % (Manual) 6.0 Eosinophils % (Manual) 0 Basophils % (Manual) 0 Metamyelocytes % 0 Myelocytes % 0 Promyelocytes % 0 Blast Cells % 0 Nucleated RBC % 7.0 H Seg Neutrophils # Man 11.1 H Band Neutrophils # 0.8 Lymphocytes # (Manual) 0.1 L Abs React Lymphs (Man) 0.0 Monocytes # (Manual) 0.8 Eosinophils # (Manual) 0.0 Basophils # (Manual) 0.0 Metamyelocytes # 0.0 Myelocytes # 0.0 Promyelocytes # 0.0 Blast Cells # 0.0 WBC Morphology Not Reportable Hypersegmented Neuts Not Reportable Hyposegmented Neuts Not Reportable Hypogranular Neuts Not Reportable Smudge Cells Not Reportable Toxic Granulation Not Reportable Toxic Vacuolation Not Reportable Dohle Bodies Not Reportable Pelger-Huet Anomaly Not Reportable Alicia Rods Not Reportable Platelet Estimate Not Reportable Clumped Platelets Not Reportable Plt Clumps, EDTA Not Reportable Large Platelets Not Reportable Giant Platelets Not Reportable Platelet Satelliting Not Reportable Plt Morphology Comment Not Reportable RBC Morphology Not Reportable Dimorphic RBCs Not Reportable Polychromasia 1+ Hypochromasia 1+ Poikilocytosis Few Anisocytosis Few Microcytosis Not Reportable Macrocytosis Not Reportable Spherocytes Not Reportable Pappenheimer Bodies Not Reportable Sickle Cells Not Reportable Target Cells 1+ Tear Drop Cells Not Reportable Ovalocytes Not Reportable Helmet Cells Not Reportable [place] Bodies Not Reportable [place] Rings Not Reportable Tanya Cells Not Reportable Bite Cells Not Reportable Crenated Cell Not Reportable Elliptocytes Not Reportable Acanthocytes (Spur) Not Reportable Rouleaux Not Reportable Hemoglobin C Crystals Not Reportable Schistocytes Not Reportable Malaria parasites Not Reportable David Bodies Not Reportable Hem Pathologist Commnt No Sodium 142 Potassium 4.5 Chloride 103.7 Carbon Dioxide 25 Anion Gap 18 BUN 45 H Creatinine 0.7 Estimated GFR > 60 BUN/Creatinine Ratio 64 Glucose 148 H POC Glucose Calcium 9.0 Ammonia 82.0 H Fluid Type Fluid Color Fluid Appearance Fluid WBC Fluid RBC Fluid Diff Comment Fluid Seg Neutrophils Fluid Lymphocytes Fluid Reactive Lymphs Fluid Monocytes Fluid Eosinophils Fluid Basophils 04/20/19 04/20/19 04/20/19 06:13 08:12 10:14 WBC RBC Hgb Hct MCV MCH MCHC RDW Plt Count Add Manual Diff Total Counted Seg Neuts % (Manual) Band Neutrophils % Lymphocytes % (Manual) Reactive Lymphs % (Man) Monocytes % (Manual) Eosinophils % (Manual) Basophils % (Manual) Metamyelocytes % Myelocytes % Promyelocytes % Blast Cells % Nucleated RBC % Seg Neutrophils # Man Band Neutrophils # Lymphocytes # (Manual) Abs React Lymphs (Man) Monocytes # (Manual) Eosinophils # (Manual) Basophils # (Manual) Metamyelocytes # Myelocytes # Promyelocytes # Blast Cells # WBC Morphology Hypersegmented Neuts Hyposegmented Neuts Hypogranular Neuts Smudge Cells Toxic Granulation Toxic Vacuolation Dohle Bodies Pelger-Huet Anomaly Alicia Rods Platelet Estimate Clumped Platelets Plt Clumps, EDTA Large Platelets Giant Platelets Platelet Satelliting Plt Morphology Comment RBC Morphology Dimorphic RBCs Polychromasia Hypochromasia Poikilocytosis Anisocytosis Microcytosis Macrocytosis Spherocytes Pappenheimer Bodies Sickle Cells Target Cells Tear Drop Cells Ovalocytes Helmet Cells [place] Bodies [place] Rings [place] Cells Bite Cells Crenated Cell Elliptocytes Acanthocytes (Spur) Rouleaux Hemoglobin C Crystals Schistocytes Malaria parasites David Bodies Hem Pathologist Commnt Sodium Potassium Chloride Carbon Dioxide Anion Gap BUN Creatinine Estimated GFR BUN/Creatinine Ratio Glucose POC Glucose 191 H 135 H 136 H Calcium Ammonia Fluid Type Fluid Color Fluid Appearance Fluid WBC Fluid RBC Fluid Diff Comment Fluid Seg Neutrophils Fluid Lymphocytes Fluid Reactive Lymphs Fluid Monocytes Fluid Eosinophils Fluid Basophils 04/20/19 12:58 WBC RBC Hgb Hct MCV MCH MCHC RDW Plt Count Add Manual Diff Total Counted Seg Neuts % (Manual) Band Neutrophils % Lymphocytes % (Manual) Reactive Lymphs % (Man) Monocytes % (Manual) Eosinophils % (Manual) Basophils % (Manual) Metamyelocytes % Myelocytes % Promyelocytes % Blast Cells % Nucleated RBC % Seg Neutrophils # Man Band Neutrophils # Lymphocytes # (Manual) Abs React Lymphs (Man) Monocytes # (Manual) Eosinophils # (Manual) Basophils # (Manual) Metamyelocytes # Myelocytes # Promyelocytes # Blast Cells # WBC Morphology Hypersegmented Neuts Hyposegmented Neuts Hypogranular Neuts Smudge Cells Toxic Granulation Toxic Vacuolation Dohle Bodies Pelger-Huet Anomaly Alicia Rods Platelet Estimate Clumped Platelets Plt Clumps, EDTA Large Platelets Giant Platelets Platelet Satelliting Plt Morphology Comment RBC Morphology Dimorphic RBCs Polychromasia Hypochromasia Poikilocytosis Anisocytosis Microcytosis Macrocytosis Spherocytes Pappenheimer Bodies Sickle Cells Target Cells Tear Drop Cells Ovalocytes Helmet Cells [place] Bodies [place] Rings [place] Cells Bite Cells Crenated Cell Elliptocytes Acanthocytes (Spur) Rouleaux Hemoglobin C Crystals Schistocytes Malaria parasites David Bodies Hem Pathologist Commnt Sodium Potassium Chloride Carbon Dioxide Anion Gap BUN Creatinine Estimated GFR BUN/Creatinine Ratio Glucose POC Glucose 171 H Calcium Ammonia Fluid Type Fluid Color Fluid Appearance Fluid WBC Fluid RBC Fluid Diff Comment Fluid Seg Neutrophils Fluid Lymphocytes Fluid Reactive Lymphs Fluid Monocytes Fluid Eosinophils Fluid Basophils
--- NOTE | 2019-04-20 14:25 | Magnetic Resonance Report ---
MR abdomen wo/w con INDICATION: liver mass. Abnormal CT scan Cirrhosis and ascites TECHNIQUE: Multiplanar, multisequence MR images were obtained. COMPARISON: CT abdomen with contrast 01/10/2019 FINDINGS: Today's study is limited by respiratory motion artifact. This study was performed with and without IV contrast. The liver has a cirrhotic morphology with nodular surface contour. Multiple rick d peripherally enhancing lesions with restricted diffusion are seen throughout all hepatic segments. The largest lesion is seen within the posterior hepatic segment measuring 5.4 cm in maximum diameter on series 12 image 84, previously measuring 5.0 cm. Nonocclusive enhancing thrombus is again seen wit hin the main and left portal veins with extension into the proximal SMV, unchanged Large amount of abdominal ascites and small abdominal varices again noted. Small gallstone is presen t seen best on series 5 image 22. Pancreas,adrenals and kidneys appear within normal limits. Solid pleural-based right lower lobe pulmonary mass is again noted measuring 3.1 cm in maximum diamet er on the MRI and 3.4 cm on the previous CT abdomen. IMPRESSION: 1. 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 2. Right lower lobe pleural-based mass is unchanged and described previously worrisome for neoplasm, unchanged. Recommend chest CT for staging and evaluation. 3. New splenic infarcts. 4. Cholelithiasis, unchanged. 5 large volume ascites and small abdominal varices, unchanged Signer Name: Ankit Alcocer MD Signed: 04/20/2019 2:21 PM Workstation Name: [id number]
[2019-04-20] MEDS: PANTOPRAZOLE 40 MG INJ IV SCH (22:03)
[2019-04-21] MEDS: HYDROmorphone 1 MG/1 ML INJ IV PRN ×3 (04:41→18:09)
[2019-04-21] MEDS: OCTREOTIDE 500 MCG in SODIUM CHLORIDE 0.9% 100 ML IV SCH (05:07)
[2019-04-21 05:37] LABS: Hemoglobin 6.9 gm/dl (10.1-14.3); Mean Corpuscular HGB Conc 35 % (30-34); Mean Corpuscular Volume 108 fl (79-97); Red Blood Count 1.86 M/mm3 (3.65-5.03); Red Cell Distribution Width 13.3 % (13.2-15.2)
[2019-04-21 05:42] LABS: Platelet Count 91 K/mm3 (140-440)
[2019-04-21 06:01] LABS: BUN/Creatinine Ratio 55; Blood Urea Nitrogen 55 mg/dL (7-17); Calcium 9.2 mg/dL (8.4-10.2); Hemolysis Index 1
[2019-04-21 06:29] LABS: Total Cells Counted 100
[2019-04-21 06:30] LABS: Basophils % (Manual) 0 % (0.0-1.8); Eosinophils % (Manual) 0 % (0.0-4.3); Hypochromasia 1+; Macrocytosis 1+; Platelet Estimate Appears Decreased; Target Cells 1+
--- NOTE | 2019-04-21 10:47 | Progress Note ---
Assessment and Plan - Patient Problems (1) Acute kidney injury Current Visit: Yes Status: Acute Plan to address problem: With improvement in renal function, likely pre-renal. Overall renal function remains stable. Avoid nephrotoxins, maintain MAP >65mmHg. (2) GI bleed Current Visit: Yes Status: Acute Plan to address problem: Transfuse to maintain Hgb >7.0. Continues on protonix/octreotide. Further recommendations per nephrology. (3) Ascites Current Visit: Yes Status: Acute Plan to address problem: s/p paracentesis with removal of 6.6L. Will continue to monitor. (4) Hyperkalemia Current Visit: Yes Status: Acute Plan to address problem: Potassium levels improved. Subjective Date of service: 04/21/19 Principal diagnosis: PINO Interval history: No acute changes, renal function stable. MRI noted, with concerning findings for HCC. Objective - Vital Signs Vital signs: Vital Signs - 12hr 04/20/19 04/21/19 04/21/19 23:49 00:00 02:01 Temperature 97.0 F L Pulse Rate 113 H 112 H 123 H Pulse Rate [ 14 L From Monitor] Respiratory 12 13 26 H Rate Blood Pressure 123/66 115/53 O2 Sat by Pulse 100 100 100 Oximetry 04/21/19 04/21/19 04/21/19 04:00 06:01 08:00 Temperature 98.0 F Pulse Rate 108 H 104 H 102 H Pulse Rate [ 113 H 102 H From Monitor] Respiratory 15 20 12 Rate Blood Pressure 127/52 95/55 O2 Sat by Pulse 100 99 99 Oximetry - General Appearance General appearance: cachectic, chronically ill, frail EENT: ATNC Neck: no JVD, no thyromegaly Respiratory: Present: Clear to Ascultation Cardiology: regular, S1S2 Gastrointestinal: normal Integumentary: no rash, warm and dry Neurologic: confused, disoriented, other Psychiatric: agitated - Lab 04/21/19 05:08 04/21/19 05:08 Most recent lab results Calcium 9.2 mg/dL (8.4-10.2) 04/21/19 05:08 - Allied health notes Allied health notes reviewed: nursing Medications & Allergies - Medications Allergies/Adverse Reactions: Allergies Sulfa (Sulfonamide Antibiotics) Allergy (Verified 08/07/13 09:05) Unknown Home Medications: Home Medications Medication Instructions Recorded Confirmed Last Taken Type Aspirin [Baby Aspirin] 162 mg PO QDAY 08/07/13 04/17/19 04/16/19 History Atenolol [Tenormin] 25 mg PO DAILY 08/07/13 04/17/19 04/16/19 History Folic Acid/Vit B Complex and C 400 mcg PO DAILY 08/07/13 04/17/19 04/16/19 History [B-Complex with Vit C Caplet] Furosemide [Lasix] 20 mg PO DAILY 08/07/13 04/17/19 04/16/19 History Spironolactone [Aldactone] 50 mg PO QDAY 08/07/13 04/17/19 04/16/19 History traMADol [Ultram 50 MG tab] 50 mg PO Q6HR PRN #20 tablet 02/09/19 04/17/19 04/16/19 Rx Omeprazole 40 mg PO QDAY 04/17/19 04/17/19 04/16/19 History Active Medications: Generic Name Dose Route Start Last Admin Trade Name Amanda PRN Reason Stop Dose Admin Acetaminophen 650 mg 04/17/19 11:00 Tylenol PO Q4H PRN Pain MILD(1-3)/Fever >100.5/TILLMAN Hydromorphone HCl 0.25 mg 04/17/19 11:00 04/21/19 04:41 Dilaudid IV 0.25 mg Q3H PRN Administration Pain, Moderate (4-6) Octreotide Acetate 500 mcg/ 101 mls @ 5.05 mls/hr 04/17/19 10:00 04/21/19 05:07 Sodium Chloride IV 25 mcg/hr TITR TIFFANY 5.05 mls/hr Administration Protocol 25 MCG/HR Ceftriaxone Sodium 1 gm in 50 mls @ 100 mls/hr 04/17/19 10:00 04/20/19 13:21 Rocephin/Ns 1 Gm/50 Ml IV 04/23/19 10:29 100 mls/hr Q24HR TIFFANY Administration Protocol Lactulose 20 gm 04/20/19 06:42 04/20/19 21:35 Cephulac PO Not Given BID TIFFANY Morphine Sulfate 2 mg 04/17/19 11:00 04/17/19 22:40 Morphine IV 2 mg Q4H PRN Administration Pain, Moderate (4-6) Ondansetron HCl 4 mg 04/17/19 11:00 04/18/19 08:51 Zofran IV 4 mg Q8H PRN Administration Nausea And Vomiting Pantoprazole Sodium 40 mg 04/20/19 22:00 04/20/19 22:03 Protonix IV 40 mg BID TIFFANY Administration Rifaximin 550 mg 04/19/19 22:00 04/20/19 21:35 Xifaxan PO Not Given BID TIFFANY Sodium Chloride 10 ml 04/17/19 11:00 04/20/19 22:03 Sodium Chloride Flush Syringe 10 Ml IV 10 ml BID TIFFANY Administration Sodium Chloride 10 ml 04/17/19 11:00 Sodium Chloride Flush Syringe 10 Ml IV PRN PRN LINE FLUSH
[2019-04-21] MEDS: cefTRIAXone/NS 1 GM/50 ML 1 GM/50 ML BAG IV SCH (11:03)
[2019-04-21] MEDS: PANTOPRAZOLE 40 MG INJ IV SCH ×2 (11:03→22:03)
[2019-04-21] MEDS ORDERED: SODIUM CHLORIDE 0.9% 500 ML 500 ML IV ONE ×2 (11:17→17:16)
--- NOTE | 2019-04-21 11:21 | Progress Note ---
Assessment and Plan Assessment and plan: 73-year-old woman with history of hep C, cirrhosis, questionable history of hepatocellular carcinoma which is being worked up at outside hospital. The patient has chronic ascites who gets frequent paracentesis, last paracentesis was 04/01/2019, was due for another on day of admission. She presented with hemoptysis and melena. MRI liver; shows cirrhosis with extensive multifocal HCC throughout all segments of the liver with enhancing portal vein tumor thrombus extending into SMV which has progressed since prior study. There is right lower lobe pleural-based mass which is unchanged and also worrisome for neoplasm, new splenic infarcts, unchanged cholelithiasis, ascites is noted as well as small abdominal varices. Acute upper GI bleed/acute blood anemia Concern for variceal bleeding, GI consulted, hemoglobin currently stable. Management per GI PPI drip, octreotide ggt, sp EGD 04/17 showed esophageal varices, they were not actively bleeding, they were banded. -Hemoglobin stable -will need beta-michael when blood pressure can tolerate it for treatment of portal hypertension HCC Likely metastatic to lung, obtain CT chest for better analysis of lung mass and for staging Prognosis is very poor, have already recommended hospice to patient, Hepatitis C/cirrhosis/decompensated liver disease Ascites sp paracentesis 04/19, 6.6 L removed, ascites already reaccumulating acute Hepatic encephalopathy Status post lactulose enema, improved, continue oral lactulose Acute metabolic encephalopathy Most likely due to pain, will start on fentanyl patch and optimize IV pain medications. Hyperkalemia, PINO likely due to vasomotor nephropathy sp insulin and D50, resolved -Nephrology consult appreciated Hyponatremia due to fluid overload likely due to chronic ascites, CLD, improving, restart diuretics when BP im proved Malnutrition Patient is not eating, she is refusing everything and is very restless and appe ars to be in pain. Will hold diet for now and reassess if patient is able to tolerate in the future. Avoid NG tube given multiple varices DVT prophylaxis; SCDs and early ambulation in light of GI bleed. given advance HCC, poor prognosis, recommend hospice family is interested in being evaluated for transplant, adviced that they can see hepatology transplant service at [facility] or [facility] if patient is to improve History Interval history: No fevers No further episodes of melena or hematemesis has been moaning in pain and restless and swinging extremities, has not been verbal, does not obey commands Hospitalist Physical - Physical exam Narrative exam: General.: Appears chronically ill HEENT: Moist mucous membranes, extraocular muscles intact, no lymphadenopathy Neck: supple Cardiac: S1-S2 heard Lungs: clear to auscultation bilaterally Abdomen: soft , distended with shifting dullness, nontender Extremities: no edema clubbing or cyanosis Skin: no rash or lesions Neurologic: no gross focal deficits, moves all extremities, moaning and throwing up UE, appears to be restless due to pain Psych: calm, and cooperative, - Constitutional Vitals: Temp Pulse Resp BP Pulse Ox 98.0 F 102 H 12 95/55 99 04/21/19 08:00 04/21/19 08:00 04/21/19 08:00 04/21/19 06:01 04/21/19 08:00 Results - Labs CBC & Chem 7: 04/21/19 05:08 04/21/19 05:08 Labs: Laboratory Last Values WBC 13.0 K/mm3 (4.5-11.0) H 04/21/19 05:08 RBC 1.86 M/mm3 (3.65-5.03) L 04/21/19 05:08 Hgb 6.9 gm/dl (10.1-14.3) L 04/21/19 05:08 Hct 20.0 % (30.3-42.9) L 04/21/19 05:08 MCV 108 fl (79-97) H 04/21/19 05:08 MCH 37 pg (28-32) H 04/21/19 05:08 MCHC 35 % (30-34) H 04/21/19 05:08 RDW 13.3 % (13.2-15.2) 04/21/19 05:08 Plt Count 91 K/mm3 (140-440) L 04/21/19 05:08 [place] % (Auto) Vascular Ultrasound Technologist 04/18/19 03:24 Add Manual Diff Complete 04/21/19 05:08 Total Counted 100 04/21/19 05:08 Seg Neuts % (Manual) 91.0 % (40.0-70.0) H 04/21/19 05:08 Band Neutrophils % 0 % 04/21/19 05:08 Lymphocytes % (Manual) 4.0 % (13.4-35.0) L 04/21/19 05:08 Reactive Lymphs % (Man) 0 % 04/21/19 05:08 Monocytes % (Manual) 5.0 % (0.0-7.3) 04/21/19 05:08 Eosinophils % (Manual) 0 % (0.0-4.3) 04/21/19 05:08 Basophils % (Manual) 0 % (0.0-1.8) 04/21/19 05:08 Metamyelocytes % 0 % 04/21/19 05:08 Myelocytes % 0 % 04/21/19 05:08 Promyelocytes % 0 % 04/21/19 05:08 Blast Cells % 0 % 04/21/19 05:08 Nucleated RBC % 12.0 % (0.0-0.9) H 04/21/19 05:08 Seg Neutrophils # Man 11.8 K/mm3 (1.8-7.7) H 04/21/19 05:08 Band Neutrophils # 0.0 K/mm3 04/21/19 05:08 Lymphocytes # (Manual) 0.5 K/mm3 (1.2-5.4) L 04/21/19 05:08 Abs React Lymphs (Man) 0.0 K/mm3 04/21/19 05:08 Monocytes # (Manual) 0.7 K/mm3 (0.0-0.8) 04/21/19 05:08 Eosinophils # (Manual) 0.0 K/mm3 (0.0-0.4) 04/21/19 05:08 Basophils # (Manual) 0.0 K/mm3 (0.0-0.1) 04/21/19 05:08 Metamyelocytes # 0.0 K/mm3 04/21/19 05:08 Myelocytes # 0.0 K/mm3 04/21/19 05:08 Promyelocytes # 0.0 K/mm3 04/21/19 05:08 Blast Cells # 0.0 K/mm3 04/21/19 05:08 WBC Morphology Not Reportable 04/21/19 05:08 Hypersegmented Neuts Not Reportable 04/21/19 05:08 Hyposegmented Neuts Not Reportable 04/21/19 05:08 Hypogranular Neuts Not Reportable 04/21/19 05:08 Smudge Cells Not Reportable 04/21/19 05:08 Toxic Granulation Not Reportable 04/21/19 05:08 Toxic Vacuolation Not Reportable 04/21/19 05:08 Dohle Bodies Not Reportable 04/21/19 05:08 Pelger-Huet Anomaly Not Reportable 04/21/19 05:08 Alicia Rods Not Reportable 04/21/19 05:08 Platelet Estimate Appears decreased 04/21/19 05:08 Clumped Platelets Not Reportable 04/21/19 05:08 Plt Clumps, EDTA Not Reportable 04/21/19 05:08 Large Platelets Not Reportable 04/21/19 05:08 Giant Platelets Not Reportable 04/21/19 05:08 Platelet Satelliting Not Reportable 04/21/19 05:08 Plt Morphology Comment Not Reportable 04/21/19 05:08 RBC Morphology Not Reportable 04/21/19 05:08 Dimorphic RBCs Not Reportable 04/21/19 05:08 Polychromasia Not Reportable 04/21/19 05:08 Hypochromasia 1+ 04/21/19 05:08 Poikilocytosis Not Reportable 04/21/19 05:08 Anisocytosis Not Reportable 04/21/19 05:08 Microcytosis Not Reportable 04/21/19 05:08 Macrocytosis 1+ 04/21/19 05:08 Spherocytes Not Reportable 04/21/19 05:08 Pappenheimer Bodies Not Reportable 04/21/19 05:08 Sickle Cells Not Reportable 04/21/19 05:08 Target Cells 1+ 04/21/19 05:08 Tear Drop Cells Not Reportable 04/21/19 05:08 Ovalocytes Not Reportable 04/21/19 05:08 Helmet Cells Not Reportable 04/21/19 05:08 [place] Bodies Not Reportable 04/21/19 05:08 [place] Rings Not Reportable 04/21/19 05:08 Tanya Cells Not Reportable 04/21/19 05:08 Bite Cells Not Reportable 04/21/19 05:08 Crenated Cell Not Reportable 04/21/19 05:08 Elliptocytes Not Reportable 04/21/19 05:08 Acanthocytes (Spur) Not Reportable 04/21/19 05:08 Rouleaux Not Reportable 04/21/19 05:08 Hemoglobin C Crystals Not Reportable 04/21/19 05:08 Schistocytes Not Reportable 04/21/19 05:08 Malaria parasites Not Reportable 04/21/19 05:08 David Bodies Not Reportable 04/21/19 05:08 Hem Pathologist Commnt No 04/21/19 05:08 PT 20.7 Sec. (12.2-14.9) H 04/19/19 10:00 INR 1.82 (0.87-1.13) H 04/19/19 10:00 APTT 26.3 Sec. (24.2-36.6) 04/17/19 07:32 Sodium 146 mmol/L (137-145) H 04/21/19 05:08 Potassium 4.2 mmol/L (3.6-5.0) 04/21/19 05:08 Chloride 105.0 mmol/L (98-107) 04/21/19 05:08 Carbon Dioxide 24 mmol/L (22-30) 04/21/19 05:08 Anion Gap 21 mmol/L 04/21/19 05:08 BUN 55 mg/dL (7-17) H 04/21/19 05:08 Creatinine 1.0 mg/dL (0.7-1.2) 04/21/19 05:08 Estimated GFR > 60 ml/min 04/21/19 05:08 BUN/Creatinine Ratio 55 % 04/21/19 05:08 Glucose 175 mg/dL (65-100) H 04/21/19 05:08 POC Glucose 199 (70-105) H 04/21/19 06:47 Calcium 9.2 mg/dL (8.4-10.2) 04/21/19 05:08 Total Bilirubin 7.20 mg/dL (0.1-1.2) H 04/19/19 10:00 AST 2652 units/L (5-40) H 04/19/19 10:00 ALT 6196 units/L (7-56) H 04/19/19 10:00 Alkaline Phosphatase 340 units/L (35-129) H 04/19/19 10:00 Ammonia 28.0 umol/L (25-60) 04/21/19 05:08 Total Protein 5.5 g/dL (6.3-8.2) L 04/19/19 10:00 Albumin 3.2 g/dL (3.9-5) L 04/19/19 10:00 Albumin/Globulin Ratio 1.4 % 04/19/19 10:00 Lipase 69 units/L (13-60) H 04/17/19 07:32 Urine Color Yellow (Yellow) 04/17/19 10:50 Urine Turbidity Clear (Clear) 04/17/19 10:50 Urine pH 6.0 (5.0-7.0) 04/17/19 10:50 Ur Specific [place] 1.006 (1.003-1.030) 04/17/19 10:50 Urine Protein <15 mg/dl mg/dL (Negative) 04/17/19 10:50 Urine Glucose (UA) >=500 mg/dL (Negative) 04/17/19 10:50 Urine Ketones Neg mg/dL (Negative) 04/17/19 10:50 Urine Blood Mod (Negative) 04/17/19 10:50 Urine Nitrite Neg (Negative) 04/17/19 10:50 Urine Bilirubin Neg (Negative) 04/17/19 10:50 Urine Urobilinogen < 2.0 mg/dL (<2.0) 04/17/19 10:50 Ur Leukocyte Esterase Lg (Negative) 04/17/19 10:50 Urine WBC (Auto) 25.0 /HPF (0.0-6.0) H 04/17/19 10:50 Urine RBC (Auto) 6.0 /HPF (0.0-6.0) 04/17/19 10:50 U Epithel Cells (Auto) 1.0 /HPF (0-13.0) 04/17/19 10:50 Urine Bacteria (Auto) 1+ /HPF (Negative) 04/17/19 10:50 Urine Mucus Few /HPF 04/17/19 10:50 Fluid Type Ascitic 04/18/19 Unknown Fluid Color Yellow 04/18/19 Unknown Fluid Appearance Cloudy 04/18/19 Unknown Fluid WBC 65 /mm3 04/18/19 Unknown Fluid RBC 125 /mm3 04/18/19 Unknown Fluid Diff Comment 04/18/19 Unknown Fluid Seg Neutrophils 29.0 % 04/18/19 Unknown Fluid Lymphocytes 43.0 % 04/18/19 Unknown Fluid Reactive Lymphs 6.0 % 04/18/19 Unknown Fluid Monocytes 22.0 % 04/18/19 Unknown Fluid Eosinophils Not Reportable 04/18/19 Unknown Fluid Basophils Not Reportable 04/18/19 Unknown Hepatitis A IgM Ab Non-reactive (NonReactive) 04/18/19 10:50 Hep Bs Antigen Non-reactive (Negative) 04/18/19 10:50 Hep B Core IgM Ab Non-reactive (NonReactive) 04/18/19 10:50 Hepatitis C Antibody Reactive (NonReactive) A 04/18/19 10:50 Blood Type O POSITIVE 04/17/19 07:32 Antibody Screen Negative 04/17/19 07:32 Active Medications - Current Medications Current Medications: Generic Name Dose Route Start Last Admin Trade Name Freq PRN Reason Stop Dose Admin Acetaminophen 650 mg 04/17/19 11:00 Tylenol PO Q4H PRN Pain MILD(1-3)/Fever >100.5/TILLMAN Hydromorphone HCl 0.25 mg 04/17/19 11:00 04/21/19 04:41 Dilaudid IV 0.25 mg Q3H PRN Administration Pain, Moderate (4-6) Octreotide Acetate 500 mcg/ 101 mls @ 5.05 mls/hr 04/17/19 10:00 04/21/19 05:07 Sodium Chloride IV 25 mcg/hr TITR TIFFANY 5.05 mls/hr Administration Protocol 25 MCG/HR Ceftriaxone Sodium 1 gm in 50 mls @ 100 mls/hr 04/17/19 10:00 04/20/19 13:21 Rocephin/Ns 1 Gm/50 Ml IV 04/23/19 10:29 100 mls/hr Q24HR TIFFANY Administration Protocol Lactulose 20 gm 04/20/19 06:42 04/20/19 21:35 Cephulac PO Not Given BID TIFFANY Morphine Sulfate 2 mg 04/17/19 11:00 04/17/19 22:40 Morphine IV 2 mg Q4H PRN Administration Pain, Moderate (4-6) Ondansetron HCl 4 mg 04/17/19 11:00 04/18/19 08:51 Zofran IV 4 mg Q8H PRN Administration Nausea And Vomiting Pantoprazole Sodium 40 mg 04/20/19 22:00 04/20/19 22:03 Protonix IV 40 mg BID TIFFANY Administration Rifaximin 550 mg 04/19/19 22:00 04/20/19 21:35 Xifaxan PO Not Given BID TIFFANY Sodium Chloride 10 ml 04/17/19 11:00 04/20/19 22:03 Sodium Chloride Flush Syringe 10 Ml IV 10 ml BID TIFFANY Administration Sodium Chloride 10 ml 04/17/19 11:00 Sodium Chloride Flush Syringe 10 Ml IV PRN PRN LINE FLUSH Nutrition/Malnutrition Assess - Dietary Evaluation Nutrition/Malnutrition Findings: Nutrition Notes Start: 04/18/19 12:01 Freq: Status: Active Protocol: Document 04/18/19 12:01 PS (Rec: 04/18/19 12:52 PS [id number]) Co-Sign 04/18/19 12:01 LP Nutrition Notes Need for Assessment generated from: Low BMI Initial or Follow up Assessment Other Pertinent Diagnosis Liver Cirrhosis, Hepatitis C, Ascites Current Diet Clear Liquid Diet Labs/Tests Na 129 K 6.6 BUN 47 Creat. 1.3 Glu 191 POC Glu 297 Bilirubin 3.2 AST 2899 ALT 3695 Albumin 2.8 Pertinent Medications Reviewed Height 5 ft 1 in Weight 63.6 kg Usual Body Weight 66.81 kg [place] Body Weight (kg) 47.72 BMI 26.4 Intake Prior to Admission Poor Weight change and time frame 3.21 kg wt loss. Unknown time frame. Weight Status Appropriate Subjective/Other Information Consult for Low BMI. Pt. daughter and present during visit. Pt. was tired and struggled answering questions. stated her normal body wt is around 147. Pt. daughter stated she's eating <50% of normal diet this past month. Pt. currently has appetite. Pt. showed temporal and clavical wasting. Burn Absent Trauma Absent Minimum of two criteria Yes Energy Intake (non-severe) <75% Estimated Energy Requirement >7 days Muscle Mass Mild Depletion (non-severe) Fluid Accumulation Mild (non-severe) #2 Nutrition Diagnosis Malnutrition Etiology poor oral intake As Evidenced by Signs and Symptoms < or equal to <75% percent of estimated energy requirements in > or equal to 7 days. Mild muscle mass depletion. Fluid accumulation/ascites. #1 Nutrition Diagnosis Inadequate oral intake Etiology poor appetite As Evidenced by Signs and Symptoms pt. daughter states she has eaten <50% of her normal intake in the past month. Is patient on ventilator? No Is Patient Ambulatory and/or Out of Bed Yes REE-([place]-ambulatory/OOB) [ [id number] [id number]] Calculation Used for Recommendations Arnie Little Additional Notes Pro: 63 - 76 g (1-1.2 g/kg) Fluid: 1kcal/ml Nutrition Intervention Change Diet Order: Clear Liquid Diet Add Supplement/Snack (indicate name/kcal Ensure Clear Apple and Mixed /protein ) Vargas BID Provides kCal: 480 Provides Protein (gm) 16 Goal #1 Meet 80% of estimated energy/ protein requirements. Anticipated Discharge Needs: Low Sodium Diet Follow-Up By: 04/22/19 Additional Comments F/U for PO/ONS intakes/ tolerance
[2019-04-21] MEDS: LACTULOSE 20 GM/30 ML ORAL LIQD PO SCH ×2 (12:01→21:41)
[2019-04-21] MEDS: RIFAXIMIN 550 MG TAB PO SCH ×2 (12:14→21:41)
[2019-04-21] MEDS ORDERED: fentaNYL 25 MCG/HR PATCH 72HR TD SCH (15:00)
--- NOTE | 2019-04-21 17:12 | Gastroenterology Progress Note ---
Assessment and Plan 1. GI bled: s/p EGD w/ variceal banding - follow h/h - continue Octreotide IV - continue Ceftriaxone - no changes 2. Liver mass: repeat scan noted for multiple liver lesion and lung lesions - pt h/o high AFP, suspect HCC - pt was previously referred for transplant eval and Onc and refused - doubt transplant candidate given multiple lesions and overall status - will follow 3. Encephalopathy: continue PO lactulose - follow mental status, continue Xifaxan - overall prognosis poor, would strongly onider hospice - will follow for now Subjective Date of service: 04/21/19 Principal diagnosis: PINO Interval history: pt w/o signs bleeding overnight. Slightly disoriented, no other issues overnight per family Objective - Constitutional Vitals: Temp Pulse Resp BP Pulse Ox 97.3 F L 107 H 20 112/60 100 04/21/19 16:00 04/21/19 16:00 04/21/19 16:00 04/21/19 16:00 04/21/19 16:00 General appearance: no acute distress - EENT Eyes: PERRL - Respiratory Respiratory: bilateral: CTA - Cardiovascular Rhythm: regular Heart Sounds: Present: S1 & S2 - Gastrointestinal General gastrointestinal: Present: soft, non-tender - Labs CBC & Chem 7: 04/21/19 05:08 04/21/19 05:08 Labs: Laboratory Results - last 24 hr 04/20/19 04/20/19 04/20/19 16:22 18:17 20:22 WBC RBC Hgb Hct MCV MCH MCHC RDW Plt Count Add Manual Diff Total Counted Seg Neuts % (Manual) Band Neutrophils % Lymphocytes % (Manual) Reactive Lymphs % (Man) Monocytes % (Manual) Eosinophils % (Manual) Basophils % (Manual) Metamyelocytes % Myelocytes % Promyelocytes % Blast Cells % Nucleated RBC % Seg Neutrophils # Man Band Neutrophils # Lymphocytes # (Manual) Abs React Lymphs (Man) Monocytes # (Manual) Eosinophils # (Manual) Basophils # (Manual) Metamyelocytes # Myelocytes # Promyelocytes # Blast Cells # WBC Morphology Hypersegmented Neuts Hyposegmented Neuts Hypogranular Neuts Smudge Cells Toxic Granulation Toxic Vacuolation Dohle Bodies Pelger-Huet Anomaly Alicia Rods Platelet Estimate Clumped Platelets Plt Clumps, EDTA Large Platelets Giant Platelets Platelet Satelliting Plt Morphology Comment RBC Morphology Dimorphic RBCs Polychromasia Hypochromasia Poikilocytosis Anisocytosis Microcytosis Macrocytosis Spherocytes Pappenheimer Bodies Sickle Cells Target Cells Tear Drop Cells Ovalocytes Helmet Cells Ewing-Robbins Bodies Drasco Rings Tanya Cells Bite Cells Crenated Cell Elliptocytes Acanthocytes (Spur) Rouleaux Hemoglobin C Crystals Schistocytes Malaria parasites David Bodies Hem Pathologist Commnt Sodium Potassium Chloride Carbon Dioxide Anion Gap BUN Creatinine Estimated GFR BUN/Creatinine Ratio Glucose POC Glucose 193 H 210 H 191 H Calcium Ammonia Blood Type Antibody Screen Crossmatch 04/20/19 04/21/19 04/21/19 22:12 00:26 02:16 WBC RBC Hgb Hct MCV MCH MCHC RDW Plt Count Add Manual Diff Total Counted Seg Neuts % (Manual) Band Neutrophils % Lymphocytes % (Manual) Reactive Lymphs % (Man) Monocytes % (Manual) Eosinophils % (Manual) Basophils % (Manual) Metamyelocytes % Myelocytes % Promyelocytes % Blast Cells % Nucleated RBC % Seg Neutrophils # Man Band Neutrophils # Lymphocytes # (Manual) Abs React Lymphs (Man) Monocytes # (Manual) Eosinophils # (Manual) Basophils # (Manual) Metamyelocytes # Myelocytes # Promyelocytes # Blast Cells # WBC Morphology Hypersegmented Neuts Hyposegmented Neuts Hypogranular Neuts Smudge Cells Toxic Granulation Toxic Vacuolation Dohle Bodies Pelger-Huet Anomaly Alicia Rods Platelet Estimate Clumped Platelets Plt Clumps, EDTA Large Platelets Giant Platelets Platelet Satelliting Plt Morphology Comment RBC Morphology Dimorphic RBCs Polychromasia Hypochromasia Poikilocytosis Anisocytosis Microcytosis Macrocytosis Spherocytes Pappenheimer Bodies Sickle Cells Target Cells Tear Drop Cells Ovalocytes Helmet Cells Ewing-Robbins Bodies Drasco Rings Tanya Cells Bite Cells Crenated Cell Elliptocytes Acanthocytes (Spur) Rouleaux Hemoglobin C Crystals Schistocytes Malaria parasites David Bodies Hem Pathologist Commnt Sodium Potassium Chloride Carbon Dioxide Anion Gap BUN Creatinine Estimated GFR BUN/Creatinine Ratio Glucose POC Glucose 207 H 221 H 186 H Calcium Ammonia Blood Type Antibody Screen Crossmatch 04/21/19 04/21/19 04/21/19 04:17 05:08 05:08 WBC 13.0 H RBC 1.86 L Hgb 6.9 L Hct 20.0 L MCV 108 H MCH 37 H MCHC 35 H RDW 13.3 Plt Count 91 L Add Manual Diff Complete Total Counted 100 Seg Neuts % (Manual) 91.0 H Band Neutrophils % 0 Lymphocytes % (Manual) 4.0 L Reactive Lymphs % (Man) 0 Monocytes % (Manual) 5.0 Eosinophils % (Manual) 0 Basophils % (Manual) 0 Metamyelocytes % 0 Myelocytes % 0 Promyelocytes % 0 Blast Cells % 0 Nucleated RBC % 12.0 H Seg Neutrophils # Man 11.8 H Band Neutrophils # 0.0 Lymphocytes # (Manual) 0.5 L Abs React Lymphs (Man) 0.0 Monocytes # (Manual) 0.7 Eosinophils # (Manual) 0.0 Basophils # (Manual) 0.0 Metamyelocytes # 0.0 Myelocytes # 0.0 Promyelocytes # 0.0 Blast Cells # 0.0 WBC Morphology Not Reportable Hypersegmented Neuts Not Reportable Hyposegmented Neuts Not Reportable Hypogranular Neuts Not Reportable Smudge Cells Not Reportable Toxic Granulation Not Reportable Toxic Vacuolation Not Reportable Dohle Bodies Not Reportable Pelger-Huet Anomaly Not Reportable Alicia Rods Not Reportable Platelet Estimate Appears decreased Clumped Platelets Not Reportable Plt Clumps, EDTA Not Reportable Large Platelets Not Reportable Giant Platelets Not Reportable Platelet Satelliting Not Reportable Plt Morphology Comment Not Reportable RBC Morphology Not Reportable Dimorphic RBCs Not Reportable Polychromasia Not Reportable Hypochromasia 1+ Poikilocytosis Not Reportable Anisocytosis Not Reportable Microcytosis Not Reportable Macrocytosis 1+ Spherocytes Not Reportable Pappenheimer Bodies Not Reportable Sickle Cells Not Reportable Target Cells 1+ Tear Drop Cells Not Reportable Ovalocytes Not Reportable Helmet Cells Not Reportable Ewing-Robbins Bodies Not Reportable Drasco Rings Not Reportable Tanya Cells Not Reportable Bite Cells Not Reportable Crenated Cell Not Reportable Elliptocytes Not Reportable Acanthocytes (Spur) Not Reportable Rouleaux Not Reportable Hemoglobin C Crystals Not Reportable Schistocytes Not Reportable Malaria parasites Not Reportable David Bodies Not Reportable Hem Pathologist Commnt No Sodium 146 H Potassium 4.2 Chloride 105.0 Carbon Dioxide 24 Anion Gap 21 BUN 55 H Creatinine 1.0 Estimated GFR > 60 BUN/Creatinine Ratio 55 Glucose 175 H POC Glucose 205 H Calcium 9.2 Ammonia Blood Type Antibody Screen Crossmatch 04/21/19 04/21/19 04/21/19 05:08 06:47 08:10 WBC RBC Hgb Hct MCV MCH MCHC RDW Plt Count Add Manual Diff Total Counted Seg Neuts % (Manual) Band Neutrophils % Lymphocytes % (Manual) Reactive Lymphs % (Man) Monocytes % (Manual) Eosinophils % (Manual) Basophils % (Manual) Metamyelocytes % Myelocytes % Promyelocytes % Blast Cells % Nucleated RBC % Seg Neutrophils # Man Band Neutrophils # Lymphocytes # (Manual) Abs React Lymphs (Man) Monocytes # (Manual) Eosinophils # (Manual) Basophils # (Manual) Metamyelocytes # Myelocytes # Promyelocytes # Blast Cells # WBC Morphology Hypersegmented Neuts Hyposegmented Neuts Hypogranular Neuts Smudge Cells Toxic Granulation Toxic Vacuolation Dohle Bodies Pelger-Huet Anomaly Alicia Rods Platelet Estimate Clumped Platelets Plt Clumps, EDTA Large Platelets Giant Platelets Platelet Satelliting Plt Morphology Comment RBC Morphology Dimorphic RBCs Polychromasia Hypochromasia Poikilocytosis Anisocytosis Microcytosis Macrocytosis Spherocytes Pappenheimer Bodies Sickle Cells Target Cells Tear Drop Cells Ovalocytes Helmet Cells Ewing-Robbins Bodies Drasco Rings Tanya Cells Bite Cells Crenated Cell Elliptocytes Acanthocytes (Spur) Rouleaux Hemoglobin C Crystals Schistocytes Malaria parasites David Bodies Hem Pathologist Commnt Sodium Potassium Chloride Carbon Dioxide Anion Gap BUN Creatinine Estimated GFR BUN/Creatinine Ratio Glucose POC Glucose 199 H 213 H Calcium Ammonia 28.0 Blood Type Antibody Screen Crossmatch 04/21/19 04/21/19 04/21/19 10:40 12:54 13:06 WBC RBC Hgb Hct MCV MCH MCHC RDW Plt Count Add Manual Diff Total Counted Seg Neuts % (Manual) Band Neutrophils % Lymphocytes % (Manual) Reactive Lymphs % (Man) Monocytes % (Manual) Eosinophils % (Manual) Basophils % (Manual) Metamyelocytes % Myelocytes % Promyelocytes % Blast Cells % Nucleated RBC % Seg Neutrophils # Man Band Neutrophils # Lymphocytes # (Manual) Abs React Lymphs (Man) Monocytes # (Manual) Eosinophils # (Manual) Basophils # (Manual) Metamyelocytes # Myelocytes # Promyelocytes # Blast Cells # WBC Morphology Hypersegmented Neuts Hyposegmented Neuts Hypogranular Neuts Smudge Cells Toxic Granulation Toxic Vacuolation Dohle Bodies Pelger-Huet Anomaly Alicia Rods Platelet Estimate Clumped Platelets Plt Clumps, EDTA Large Platelets Giant Platelets Platelet Satelliting Plt Morphology Comment RBC Morphology Dimorphic RBCs Polychromasia Hypochromasia Poikilocytosis Anisocytosis Microcytosis Macrocytosis Spherocytes Pappenheimer Bodies Sickle Cells Target Cells Tear Drop Cells Ovalocytes Helmet Cells Ewing-Robbins Bodies Drasco Rings Tanya Cells Bite Cells Crenated Cell Elliptocytes Acanthocytes (Spur) Rouleaux Hemoglobin C Crystals Schistocytes Malaria parasites David Bodies Hem Pathologist Commnt Sodium Potassium Chloride Carbon Dioxide Anion Gap BUN Creatinine Estimated GFR BUN/Creatinine Ratio Glucose POC Glucose 230 H 227 H Calcium Ammonia Blood Type O POSITIVE Antibody Screen Negative Crossmatch See Detail 04/21/19 15:10 WBC RBC Hgb Hct MCV MCH MCHC RDW Plt Count Add Manual Diff Total Counted Seg Neuts % (Manual) Band Neutrophils % Lymphocytes % (Manual) Reactive Lymphs % (Man) Monocytes % (Manual) Eosinophils % (Manual) Basophils % (Manual) Metamyelocytes % Myelocytes % Promyelocytes % Blast Cells % Nucleated RBC % Seg Neutrophils # Man Band Neutrophils # Lymphocytes # (Manual) Abs React Lymphs (Man) Monocytes # (Manual) Eosinophils # (Manual) Basophils # (Manual) Metamyelocytes # Myelocytes # Promyelocytes # Blast Cells # WBC Morphology Hypersegmented Neuts Hyposegmented Neuts Hypogranular Neuts Smudge Cells Toxic Granulation Toxic Vacuolation Dohle Bodies Pelger-Huet Anomaly Alicia Rods Platelet Estimate Clumped Platelets Plt Clumps, EDTA Large Platelets Giant Platelets Platelet Satelliting Plt Morphology Comment RBC Morphology Dimorphic RBCs Polychromasia Hypochromasia Poikilocytosis Anisocytosis Microcytosis Macrocytosis Spherocytes Pappenheimer Bodies Sickle Cells Target Cells Tear Drop Cells Ovalocytes Helmet Cells Ewing-Robbins Bodies Drasco Rings [place] Cells Bite Cells Crenated Cell Elliptocytes Acanthocytes (Spur) Rouleaux Hemoglobin C Crystals Schistocytes Malaria parasites David Bodies Hem Pathologist Commnt Sodium Potassium Chloride Carbon Dioxide Anion Gap BUN Creatinine Estimated GFR BUN/Creatinine Ratio Glucose POC Glucose 211 H Calcium Ammonia Blood Type Antibody Screen Crossmatch
--- NOTE | 2019-04-21 17:23 | XRay Report ---
CHEST 1 VIEW 04/21/2019 4:31 PM INDICATION / CLINICAL INFORMATION: picc line placement. COMPARISON: None available. FINDINGS: SUPPORT DEVICES: Left PICC line has tip in SVC. HEART / MEDIASTINUM: No significant abnormality. LUNGS / PLEURA: Moderate streaky bibasilar atelectasis. No significant pulmonary or pleural abnormali ty. No pneumothorax. ADDITIONAL FINDINGS: No significant additional findings. IMPRESSION: 1. No acute findings. Signer Name: Ankit Alcocer MD Signed: 04/21/2019 5:19 PM Workstation Name: [id number]
--- NOTE | 2019-04-21 20:02 | Cat Scan Report ---
CT CHEST WITH CONTRAST INDICATION / CLINICAL INFORMATION: lung mass. TECHNIQUE: Axial CT images were obtained through the chest after 100 cc Omnipaque [address] scans at this location are performed using CT dose reduction for ALARA by means of automated exposure contr ol. COMPARISON: Chest x-ray performed today, abdominal MRI 04/20/2019 FINDINGS: Exam is markedly degraded secondary to respiratory motion. HEART: No significant abnormality. THORACIC AORTA: No significant abnormality. MEDIASTINUM and SUMANTH: No significant abnormality. LUNGS: Pleural based 2.7 cm right lower lobe pulmonary nodule/mass. Lungs are otherwise clear. PLEURA: No significant pleural effusion. No pneumothorax. ADDITIONAL FINDINGS: None. UPPER ABDOMEN: Multiple liver lesions characteristic for multifocal HCC with cirrhotic liver and larg e amount of perihepatic ascites SKELETAL SYSTEM: No significant abnormality. IMPRESSION: 1. Pleural-based 2.7 cm right lower lobe mass. 2. 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
[2019-04-21] MEDS ORDERED: PANTOPRAZOLE 40 MG TAB PO SCH (22:00)
[2019-04-22] MEDS: OCTREOTIDE 500 MCG in SODIUM CHLORIDE 0.9% 100 ML IV SCH ×2 (00:43→20:50)
[2019-04-22] MEDS: HYDROmorphone 1 MG/1 ML INJ IV PRN ×4 (00:44→13:07)
[2019-04-22 05:29] LABS: Hematocrit 27.7 % (30.3-42.9); Hemoglobin 9.6 gm/dl (10.1-14.3); Mean Corpuscular HGB Conc 35 % (30-34); Mean Corpuscular Volume 102 fl (79-97); Platelet Count 85 K/mm3 (140-440); Red Blood Count 2.72 M/mm3 (3.65-5.03); Red Cell Distribution Width 16.8 % (13.2-15.2)
[2019-04-22 05:53] LABS: Calcium 9.2 mg/dL (8.4-10.2)
--- NOTE | 2019-04-22 08:21 | Progress Note ---
Assessment and Plan Assessment and plan: 73-year-old woman with history of hep C, cirrhosis, questionable history of hepatocellular carcinoma which is being worked up at outside hospital. The patient has chronic ascites who gets frequent paracentesis, last paracentesis was 04/01/2019, was due for another on day of admission. She presented with hemoptysis and melena. MRI liver; shows cirrhosis with extensive multifocal HCC throughout all segments of the liver with enhancing portal vein tumor thrombus extending into SMV which has progressed since prior study. There is right lower lobe pleural-based mass which is unchanged and also worrisome for neoplasm, new splenic infarcts, unchanged cholelithiasis, ascites is noted as well as small abdominal varices. Acute limb/right upper extremity Right upper extremity is cold and blue with poor pulses. Cannot give blood thinner given GI bleeding and varices. Obtain stat vascular ultrasound. -The patient has a very poor prognosis, vascular surgery consult Acute upper GI bleed/acute blood anemia Concern for variceal bleeding, GI consulted, hemoglobin currently stable. Management per GI PPI Twice daily, octreotide ggt, sp EGD 04/17 showed esophageal varices, they were not actively bleeding, they were banded. 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 Zavala. Patient had right lung mass and liver lesions from [facility] in January of this year. Apparently family were made aware, they were referred to transplant/hepatology oncology,. It appears that the patient was lost to follow-up -Oncology consulted Hepatitis C/cirrhosis/decompensated liver disease Ascites sp paracentesis 04/19, 6.6 L removed, ascites already reaccumulating acute Hepatic encephalopathy Unable to tolerate oral lactulose, avoid NG tube given recently banded esophageal varices. Repeat lactulose enema today. Acute metabolic encephalopathy and progression of extensive cancer Fentanyl patch fell off, nurse has placed it and reinforce states to avoid it from falling off. IV Dilaudid as needed, Ativan as needed for restlessness. Hyperkalemia, PINO likely due to vasomotor nephropathy sp insulin and D50, resolved -Nephrology consult appreciated Hyponatremia due to fluid overload Resolved Hypernatremia This is because the patient is dehydrated, she has not been able to tolerate p.o. for several days due to mental status. Put her on dextrose. Going at a slow rate , given ascites. Severe malnutrition Patient is not eating, she is refusing everything and is very restless and appears to be in pain. Will hold diet for now and reassess if patient is able to tolerate in the future. Avoid NG tube given multiple varices DVT prophylaxis; SCDs and early ambulation in light of GI bleed. given advance HCC, poor prognosis, recommend hospice family is interested in being evaluated for transplant, adviced that they can see hepatology transplant service at [place] or [place] if patient is to improve. But given the criteria, the patient is not a candidate for transplant. The family appears skeptical and would like to get their own opinion when the patient hopefully improves History Interval history: No fevers No further episodes of melena or hematemesis has been moaning in pain and restless and swinging extremities, has not been verbal, does not obey commands sister is c/o that her RUE is swollen, blue and cold to tough Hospitalist Physical - Physical exam Narrative exam: General.: Appears chronically ill HEENT: Moist mucous membranes, extraocular muscles intact, no lymphadenopathy Neck: supple Cardiac: S1-S2 heard Lungs: clear to auscultation bilaterally Abdomen: soft , distended with shifting dullness, nontender Extremities: RUE is swollen cold and blue Skin: no rash or lesions Neurologic: no gross focal deficits, moves all extremities, moaning and throwing up UE, appears to be restless due to pain Psych: calm, and cooperative, - Constitutional Vitals: Temp Pulse Resp BP Pulse Ox 97.1 F L 106 H 8 L 108/62 99 04/22/19 04:00 04/22/19 04:01 04/22/19 04:00 04/22/19 04:00 04/22/19 04:00 Results - Labs CBC & Chem 7: 04/22/19 04:53 04/22/19 04:53 Labs: Laboratory Last Values WBC 13.0 K/mm3 (4.5-11.0) H 04/21/19 05:08 RBC 2.72 M/mm3 (3.65-5.03) L 04/22/19 04:53 Hgb 9.6 gm/dl (10.1-14.3) L 04/22/19 04:53 Hct 27.7 % (30.3-42.9) L D 04/22/19 04:53 MCV 102 fl (79-97) H 04/22/19 04:53 MCH 35 pg (28-32) H 04/22/19 04:53 MCHC 35 % (30-34) H 04/22/19 04:53 RDW 16.8 % (13.2-15.2) H 04/22/19 04:53 Plt Count 85 K/mm3 (140-440) L 04/22/19 04:53 Dupage % (Auto) Iso Coordinator 04/18/19 03:24 Add Manual Diff Complete 04/21/19 05:08 Total Counted 100 04/21/19 05:08 Seg Neuts % (Manual) 91.0 % (40.0-70.0) H 04/21/19 05:08 Band Neutrophils % 0 % 04/21/19 05:08 Lymphocytes % (Manual) 4.0 % (13.4-35.0) L 04/21/19 05:08 Reactive Lymphs % (Man) 0 % 04/21/19 05:08 Monocytes % (Manual) 5.0 % (0.0-7.3) 04/21/19 05:08 Eosinophils % (Manual) 0 % (0.0-4.3) 04/21/19 05:08 Basophils % (Manual) 0 % (0.0-1.8) 04/21/19 05:08 Metamyelocytes % 0 % 04/21/19 05:08 Myelocytes % 0 % 04/21/19 05:08 Promyelocytes % 0 % 04/21/19 05:08 Blast Cells % 0 % 04/21/19 05:08 Nucleated RBC % 12.0 % (0.0-0.9) H 04/21/19 05:08 Seg Neutrophils # Man 11.8 K/mm3 (1.8-7.7) H 04/21/19 05:08 Band Neutrophils # 0.0 K/mm3 04/21/19 05:08 Lymphocytes # (Manual) 0.5 K/mm3 (1.2-5.4) L 04/21/19 05:08 Abs React Lymphs (Man) 0.0 K/mm3 04/21/19 05:08 Monocytes # (Manual) 0.7 K/mm3 (0.0-0.8) 04/21/19 05:08 Eosinophils # (Manual) 0.0 K/mm3 (0.0-0.4) 04/21/19 05:08 Basophils # (Manual) 0.0 K/mm3 (0.0-0.1) 04/21/19 05:08 Metamyelocytes # 0.0 K/mm3 04/21/19 05:08 Myelocytes # 0.0 K/mm3 04/21/19 05:08 Promyelocytes # 0.0 K/mm3 04/21/19 05:08 Blast Cells # 0.0 K/mm3 04/21/19 05:08 WBC Morphology Not Reportable 04/21/19 05:08 Hypersegmented Neuts Not Reportable 04/21/19 05:08 Hyposegmented Neuts Not Reportable 04/21/19 05:08 Hypogranular Neuts Not Reportable 04/21/19 05:08 Smudge Cells Not Reportable 04/21/19 05:08 Toxic Granulation Not Reportable 04/21/19 05:08 Toxic Vacuolation Not Reportable 04/21/19 05:08 Dohle Bodies Not Reportable 04/21/19 05:08 Pelger-Huet Anomaly Not Reportable 04/21/19 05:08 Alicia Rods Not Reportable 04/21/19 05:08 Platelet Estimate Appears decreased 04/21/19 05:08 Clumped Platelets Not Reportable 04/21/19 05:08 Plt Clumps, EDTA Not Reportable 04/21/19 05:08 Large Platelets Not Reportable 04/21/19 05:08 Giant Platelets Not Reportable 04/21/19 05:08 Platelet Satelliting Not Reportable 04/21/19 05:08 Plt Morphology Comment Not Reportable 04/21/19 05:08 RBC Morphology Not Reportable 04/21/19 05:08 Dimorphic RBCs Not Reportable 04/21/19 05:08 Polychromasia Not Reportable 04/21/19 05:08 Hypochromasia 1+ 04/21/19 05:08 Poikilocytosis Not Reportable 04/21/19 05:08 Anisocytosis Not Reportable 04/21/19 05:08 Microcytosis Not Reportable 04/21/19 05:08 Macrocytosis 1+ 04/21/19 05:08 Spherocytes Not Reportable 04/21/19 05:08 Pappenheimer Bodies Not Reportable 04/21/19 05:08 Sickle Cells Not Reportable 04/21/19 05:08 Target Cells 1+ 04/21/19 05:08 Tear Drop Cells Not Reportable 04/21/19 05:08 Ovalocytes Not Reportable 04/21/19 05:08 Helmet Cells Not Reportable 04/21/19 05:08 [place] Bodies Not Reportable 04/21/19 05:08 [place] Rings Not Reportable 04/21/19 05:08 Garner Cells Not Reportable 04/21/19 05:08 Bite Cells Not Reportable 04/21/19 05:08 Crenated Cell Not Reportable 04/21/19 05:08 Elliptocytes Not Reportable 04/21/19 05:08 Acanthocytes (Spur) Not Reportable 04/21/19 05:08 Rouleaux Not Reportable 04/21/19 05:08 Hemoglobin C Crystals Not Reportable 04/21/19 05:08 Schistocytes Not Reportable 04/21/19 05:08 Malaria parasites Not Reportable 04/21/19 05:08 David Bodies Not Reportable 04/21/19 05:08 Hem Pathologist Commnt No 04/21/19 05:08 PT 20.7 Sec. (12.2-14.9) H 04/19/19 10:00 INR 1.82 (0.87-1.13) H 04/19/19 10:00 APTT 26.3 Sec. (24.2-36.6) 04/17/19 07:32 Sodium 148 mmol/L (137-145) H 04/22/19 04:53 Potassium 4.3 mmol/L (3.6-5.0) 04/22/19 04:53 Chloride 110.3 mmol/L (98-107) H 04/22/19 04:53 Carbon Dioxide 26 mmol/L (22-30) 04/22/19 04:53 Anion Gap 16 mmol/L 04/22/19 04:53 BUN 68 mg/dL (7-17) H 04/22/19 04:53 Creatinine 1.4 mg/dL (0.7-1.2) H 04/22/19 04:53 Estimated GFR 45 ml/min 04/22/19 04:53 BUN/Creatinine Ratio 49 % 04/22/19 04:53 Glucose 160 mg/dL (65-100) H 04/22/19 04:53 POC Glucose 161 (70-105) H 04/22/19 08:13 Calcium 9.2 mg/dL (8.4-10.2) 04/22/19 04:53 Total Bilirubin 7.20 mg/dL (0.1-1.2) H 04/19/19 10:00 AST 2652 units/L (5-40) H 04/19/19 10:00 ALT 6196 units/L (7-56) H 04/19/19 10:00 Alkaline Phosphatase 340 units/L (35-129) H 04/19/19 10:00 Ammonia 73.0 umol/L (25-60) H 04/22/19 04:53 Total Protein 5.5 g/dL (6.3-8.2) L 04/19/19 10:00 Albumin 3.2 g/dL (3.9-5) L 04/19/19 10:00 Albumin/Globulin Ratio 1.4 % 04/19/19 10:00 Lipase 69 units/L (13-60) H 04/17/19 07:32 Urine Color Yellow (Yellow) 04/17/19 10:50 Urine Turbidity Clear (Clear) 04/17/19 10:50 Urine pH 6.0 (5.0-7.0) 04/17/19 10:50 Ur Specific [place] 1.006 (1.003-1.030) 04/17/19 10:50 Urine Protein <15 mg/dl mg/dL (Negative) 04/17/19 10:50 Urine Glucose (UA) >=500 mg/dL (Negative) 04/17/19 10:50 Urine Ketones Neg mg/dL (Negative) 04/17/19 10:50 Urine Blood Mod (Negative) 04/17/19 10:50 Urine Nitrite Neg (Negative) 04/17/19 10:50 Urine Bilirubin Neg (Negative) 04/17/19 10:50 Urine Urobilinogen < 2.0 mg/dL (<2.0) 04/17/19 10:50 Ur Leukocyte Esterase Lg (Negative) 04/17/19 10:50 Urine WBC (Auto) 25.0 /HPF (0.0-6.0) H 04/17/19 10:50 Urine RBC (Auto) 6.0 /HPF (0.0-6.0) 04/17/19 10:50 U Epithel Cells (Auto) 1.0 /HPF (0-13.0) 04/17/19 10:50 Urine Bacteria (Auto) 1+ /HPF (Negative) 04/17/19 10:50 Urine Mucus Few /HPF 04/17/19 10:50 Fluid Type Ascitic 04/18/19 Unknown Fluid Color Yellow 04/18/19 Unknown Fluid Appearance Cloudy 04/18/19 Unknown Fluid WBC 65 /mm3 04/18/19 Unknown Fluid RBC 125 /mm3 04/18/19 Unknown Fluid Diff Comment 04/18/19 Unknown Fluid Seg Neutrophils 29.0 % 04/18/19 Unknown Fluid Lymphocytes 43.0 % 04/18/19 Unknown Fluid Reactive Lymphs 6.0 % 04/18/19 Unknown Fluid Monocytes 22.0 % 04/18/19 Unknown Fluid Eosinophils Not Reportable 04/18/19 Unknown Fluid Basophils Not Reportable 04/18/19 Unknown Hepatitis A IgM Ab Non-reactive (NonReactive) 04/18/19 10:50 Hep Bs Antigen Non-reactive (Negative) 04/18/19 10:50 Hep B Core IgM Ab Non-reactive (NonReactive) 04/18/19 10:50 Hepatitis C Antibody Reactive (NonReactive) A 04/18/19 10:50 Blood Type O POSITIVE 04/21/19 12:54 Antibody Screen Negative 04/21/19 12:54 Crossmatch See Detail 04/21/19 12:54 Active Medications - Current Medications Current Medications: Generic Name Dose Route Start Last Admin Trade Name Freq PRN Reason Stop Dose Admin Acetaminophen 650 mg 04/17/19 11:00 Tylenol PO Q4H PRN Pain MILD(1-3)/Fever >100.5/TILLMAN Fentanyl 25 mcg 04/21/19 15:00 04/21/19 15:06 Duragesic TD 25 mcg Q3D TIFFANY Administration Hydromorphone HCl 0.5 mg 04/21/19 14:17 04/22/19 06:58 Dilaudid IV 0.5 mg Q3H PRN Administration Pain, Moderate (4-6) Octreotide Acetate 500 mcg/ 101 mls @ 5.05 mls/hr 04/17/19 10:00 04/22/19 00:43 Sodium Chloride IV 25 mcg/hr TITR TIFFANY 5.05 mls/hr Administration Protocol 25 MCG/HR Ceftriaxone Sodium 1 gm in 50 mls @ 100 mls/hr 04/17/19 10:00 04/21/19 11:03 Rocephin/Ns 1 Gm/50 Ml IV 04/23/19 10:29 100 mls/hr Q24HR TIFFANY Administration Protocol Lactulose 20 gm 04/20/19 06:42 04/21/19 21:41 Cephulac PO Not Given BID TIFFANY Lactulose 200 gm 04/22/19 09:00 Cephulac OR ONCE TIFFANY Ondansetron HCl 4 mg 04/17/19 11:00 04/18/19 08:51 Zofran IV 4 mg Q8H PRN Administration Nausea And Vomiting Pantoprazole Sodium 40 mg 04/20/19 22:00 04/21/19 22:03 Protonix IV 40 mg BID TIFFANY Administration Rifaximin 550 mg 04/19/19 22:00 04/21/19 21:41 Xifaxan PO Not Given BID TIFFANY Sodium Chloride 10 ml 04/17/19 11:00 04/21/19 22:03 Sodium Chloride Flush Syringe 10 Ml IV 10 ml BID TIFFANY Administration Sodium Chloride 10 ml 04/17/19 11:00 Sodium Chloride Flush Syringe 10 Ml IV PRN PRN LINE FLUSH Nutrition/Malnutrition Assess - Dietary Evaluation Nutrition/Malnutrition Findings: Nutrition Notes Start: 04/18/19 12:01 Freq: Status: Active Protocol: Document 04/18/19 12:01 PS (Rec: 04/18/19 12:52 PS [id number]) Co-Sign 04/18/19 12:01 LP Nutrition Notes Need for Assessment generated from: Low BMI Initial or Follow up Assessment Other Pertinent Diagnosis Liver Cirrhosis, Hepatitis C, Ascites Current Diet Clear Liquid Diet Labs/Tests Na 129 K 6.6 BUN 47 Creat. 1.3 Glu 191 POC Glu 297 Bilirubin 3.2 AST 2899 ALT 3695 Albumin 2.8 Pertinent Medications Reviewed Height 5 ft 1 in Weight 63.6 kg Usual Body Weight 66.81 kg [place] Body Weight (kg) 47.72 BMI 26.4 Intake Prior to Admission Poor Weight change and time frame 3.21 kg wt loss. Unknown time frame. Weight Status Appropriate Subjective/Other Information Consult for Low BMI. Pt. daughter and present during visit. Pt. was tired and struggled answering questions. stated her normal body wt is around 147. Pt. daughter stated she's eating <50% of normal diet this past month. Pt. currently has appetite. Pt. showed temporal and clavical wasting. Burn Absent Trauma Absent Minimum of two criteria Yes Energy Intake (non-severe) <75% Estimated Energy Requirement >7 days Muscle Mass Mild Depletion (non-severe) Fluid Accumulation Mild (non-severe) #2 Nutrition Diagnosis Malnutrition Etiology poor oral intake As Evidenced by Signs and Symptoms < or equal to <75% percent of estimated energy requirements in > or equal to 7 days. Mild muscle mass depletion. Fluid accumulation/ascites. #1 Nutrition Diagnosis Inadequate oral intake Etiology poor appetite As Evidenced by Signs and Symptoms pt. daughter states she has eaten <50% of her normal intake in the past month. Is patient on ventilator? No Is Patient Ambulatory and/or Out of Bed Yes REE-([facility]-ambulatory/OOB) [ [id number] [id number]] [facility] Additional Notes Pro: 63 - 76 g (1-1.2 g/kg) Fluid: 1kcal/ml Nutrition Intervention Change Diet Order: Clear Liquid Diet Add Supplement/Snack (indicate name/kcal Ensure Clear Apple and Mixed /protein ) Vargas BID Provides kCal: 480 Provides Protein (gm) 16 Goal #1 Meet 80% of estimated energy/ protein requirements. Anticipated Discharge Needs: Low Sodium Diet Follow-Up By: 04/22/19 Additional Comments F/U for PO/ONS intakes/ tolerance
[2019-04-22] MEDS ORDERED: LACTULOSE ENEMA 1000 ML PR SCH ×2 (09:00→10:30)
[2019-04-22] MEDS ORDERED: LACTULOSE 20 GM/30 ML ORAL LIQD PO SCH (09:37)
[2019-04-22] MEDS: cefTRIAXone/NS 1 GM/50 ML 1 GM/50 ML BAG IV SCH (09:47)
[2019-04-22] MEDS: PANTOPRAZOLE 40 MG INJ IV SCH ×2 (09:47→22:01)
--- NOTE | 2019-04-22 09:48 | Progress Note ---
Assessment and Plan - Patient Problems (1) Acute kidney injury Current Visit: Yes Status: Acute Plan to address problem: Pre-renal azotemia versus acute tubular necrosis. Kidney functions improving. Follow-up electrolytes and renal function (2) GI bleed Current Visit: Yes Status: Acute Plan to address problem: Status post EGD and treatment. Follow-up hemoglobin (3) Cirrhosis Current Visit: Yes Status: Chronic Plan to address problem: Continue management by alternative energy engineer. Patient on low-dose furosemide (4) Paroxysmal atrial fibrillation Current Visit: No Status: Acute Plan to address problem: Follow-up blood pressure (5) Liver mass Current Visit: Yes Status: Acute Plan to address problem: Continue management by prevocational/rehabilitation counselor (6) Encephalopathy, callosal demyelinating Current Visit: Yes Status: Acute Plan to address problem: Continue management by alternative energy engineer/prevocational/rehabilitation counselor (7) Hypernatremia Current Visit: Yes Status: Acute Plan to address problem: Increase free water intake and decrease the dose of diuretic Subjective Date of service: 04/22/19 Principal diagnosis: PINO Interval history: Patient seen lying in bed. Moaning and groaning. Making incomprehensible sounds. Daughter's at bedside did give the history. Objective - Exam Narrative Exam: Elderly -Slov[place] female lying in bed comfortably ill-looking in no acute distress HEENT: NCAT, pink oral mucous membrane Neck: Supple, no venous distention CVS: S1S2 RRR with no murmur, rub or gallop Chest: Clear to auscultation, transmitted sounds Abdomen: Protuberant, soft, nontender, no organomegaly, bowel sounds are present Extremities: No edema Neuro: Moaning and groaning, no focal deficits - Vital Signs Vital signs: Vital Signs - 12hr 04/21/19 04/21/19 04/21/19 21:45 22:00 23:01 Temperature 97.4 F L Pulse Rate 94 H 94 H 97 H Respiratory 12 12 13 Rate Blood Pressure 100/63 97/58 112/61 O2 Sat by Pulse 100 97 100 Oximetry 04/21/19 04/22/19 04/22/19 23:15 00:00 01:00 Temperature 98.1 F Pulse Rate 98 H 104 H 98 H Respiratory 12 14 Rate Blood Pressure 114/78 109/64 O2 Sat by Pulse 100 100 Oximetry 04/22/19 04/22/19 04/22/19 02:00 03:00 04:00 Temperature 97.1 F L Pulse Rate 100 H 102 H 102 H Respiratory 11 L 11 L 8 L Rate Blood Pressure 111/61 100/64 108/62 O2 Sat by Pulse 96 98 99 Oximetry 04/22/19 04:01 Temperature Pulse Rate 106 H Respiratory Rate Blood Pressure O2 Sat by Pulse Oximetry - Lab 04/22/19 04:53 04/22/19 04:53 Most recent lab results Calcium 9.2 mg/dL (8.4-10.2) 04/22/19 04:53 Medications & Allergies - Medications Allergies/Adverse Reactions: Allergies Sulfa (Sulfonamide Antibiotics) Allergy (Verified 08/07/13 09:05) Unknown Home Medications: Home Medications Medication Instructions Recorded Confirmed Last Taken Type Aspirin [Baby Aspirin] 162 mg PO QDAY 08/07/13 04/17/19 04/16/19 History Atenolol [Tenormin] 25 mg PO DAILY 08/07/13 04/17/19 04/16/19 History Folic Acid/Vit B Complex and C 400 mcg PO DAILY 08/07/13 04/17/19 04/16/19 History [B-Complex with Vit C Caplet] Furosemide [Lasix] 20 mg PO DAILY 08/07/13 04/17/19 04/16/19 History Spironolactone [Aldactone] 50 mg PO QDAY 08/07/13 04/17/19 04/16/19 History traMADol [Ultram 50 MG tab] 50 mg PO Q6HR PRN #20 tablet 02/09/19 04/17/19 04/16/19 Rx Omeprazole 40 mg PO QDAY 04/17/19 04/17/19 04/16/19 History Active Medications: Generic Name Dose Route Start Last Admin Trade Name Freq PRN Reason Stop Dose Admin Acetaminophen 650 mg 04/17/19 11:00 Tylenol PO Q4H PRN Pain MILD(1-3)/Fever >100.5/TILLMAN Fentanyl 25 mcg 04/21/19 15:00 04/21/19 15:06 Duragesic TD 25 mcg Q3D TIFFANY Administration Hydromorphone HCl 0.5 mg 04/21/19 14:17 04/22/19 06:58 Dilaudid IV 0.5 mg Q3H PRN Administration Pain, Moderate (4-6) Octreotide Acetate 500 mcg/ 101 mls @ 5.05 mls/hr 04/17/19 10:00 04/22/19 00:43 Sodium Chloride IV 25 mcg/hr TITR TIFFANY 5.05 mls/hr Administration Protocol 25 MCG/HR Ceftriaxone Sodium 1 gm in 50 mls @ 100 mls/hr 04/17/19 10:00 04/21/19 11:03 Rocephin/Ns 1 Gm/50 Ml IV 04/23/19 10:29 100 mls/hr Q24HR TIFFANY Administration Protocol Lactulose 200 gm 04/22/19 09:00 Cephulac TX ONCE TIFFANY Lactulose 20 gm 04/22/19 09:37 Cephulac PO BID TIFFANY Ondansetron HCl 4 mg 04/17/19 11:00 04/18/19 08:51 Zofran IV 4 mg Q8H PRN Administration Nausea And Vomiting Pantoprazole Sodium 40 mg 04/20/19 22:00 04/21/19 22:03 Protonix IV 40 mg BID TIFFANY Administration Rifaximin 550 mg 04/19/19 22:00 04/21/19 21:41 Xifaxan PO Not Given BID TIFFANY Sodium Chloride 10 ml 04/17/19 11:00 04/21/19 22:03 Sodium Chloride Flush Syringe 10 Ml IV 10 ml BID TIFFANY Administration Sodium Chloride 10 ml 04/17/19 11:00 Sodium Chloride Flush Syringe 10 Ml IV PRN PRN LINE FLUSH
[2019-04-22] MEDS: RIFAXIMIN 550 MG TAB PO SCH ×2 (10:00→22:33)
[2019-04-22 11:04] LABS: Basophils % (Manual) 0 % (0.0-1.8); Eosinophils % (Manual) 0 % (0.0-4.3); Monocytes % (Manual) 0 % (0.0-7.3); Total Cells Counted 100
[2019-04-22 11:05] LABS: Macrocytosis 1+; Target Cells 1+
[2019-04-22 11:06] LABS: Band Neutrophils # (Manual) 0.5 K/mm3
[2019-04-22 11:08] LABS: Platelet Estimate Consistent w Auto
[2019-04-22] MEDS ORDERED: DEXTROSE 5% IN WATER 1,000 ML IV SCH (12:00)
[2019-04-22] MEDS: FREE WATER PO SCH ×2 (13:11→20:26)
[2019-04-22] MEDS: ALBUMIN HUMAN 25% (12.5 GM/50 ML) INJ IV SCH ×2 (15:48→22:02)
[2019-04-22] MEDS: LORazepam 2 MG/ML VIAL IV PRN (15:48)
--- NOTE | 2019-04-22 20:35 | Gastroenterology Progress Note ---
Assessment and Plan 1. Variceal bleed - H/H stable w/o signs of further bleeding since egd 2. Hepatic encephalopathy - lactulose enemas given inability to take po intake 3. Liver lesions - suspicious for HCC, would be outside [place] criteria if confirmed 4. Pulmonary lesions Subjective Date of service: 04/22/19 Principal diagnosis: GI bleed Interval history: pt seen and examined; daughter at bedside. confused/altered on exam. no reported gi bleeding episodes overnight. Objective - Exam Narrative Exam: Gen: confused/altered CV: RRR lungs: CTAB abd: soft, nt, nd, +bs - Constitutional Vitals: Temp Pulse Resp BP Pulse Ox 98.2 F 109 H 9 L 100/63 97 04/22/19 20:00 04/22/19 18:00 04/22/19 18:00 04/22/19 18:00 04/22/19 18:00 - Labs CBC & Chem 7: 04/22/19 04:53 04/22/19 04:53 Labs: Laboratory Results - last 24 hr 04/21/19 04/21/19 04/22/19 12:54 21:53 00:08 WBC RBC Hgb Hct MCV MCH MCHC RDW Plt Count Add Manual Diff Total Counted Seg Neuts % (Manual) Band Neutrophils % Lymphocytes % (Manual) Reactive Lymphs % (Man) Monocytes % (Manual) Eosinophils % (Manual) Basophils % (Manual) Metamyelocytes % Myelocytes % Promyelocytes % Blast Cells % Nucleated RBC % Seg Neutrophils # Man Band Neutrophils # Lymphocytes # (Manual) Abs React Lymphs (Man) Monocytes # (Manual) Eosinophils # (Manual) Basophils # (Manual) Metamyelocytes # Myelocytes # Promyelocytes # Blast Cells # WBC Morphology Hypersegmented Neuts Hyposegmented Neuts Hypogranular Neuts Smudge Cells Toxic Granulation Toxic Vacuolation Dohle Bodies Pelger-Huet Anomaly Alicia Rods Platelet Estimate Clumped Platelets Plt Clumps, EDTA Large Platelets Giant Platelets Platelet Satelliting Plt Morphology Comment RBC Morphology Dimorphic RBCs Polychromasia Hypochromasia Poikilocytosis Anisocytosis Microcytosis Macrocytosis Spherocytes Pappenheimer Bodies Sickle Cells Target Cells Tear Drop Cells Ovalocytes Helmet Cells Ewing-[place] Bodies [place] Rings Tanya Cells Bite Cells Crenated Cell Elliptocytes Acanthocytes (Spur) Rouleaux Hemoglobin C Crystals Schistocytes Malaria parasites David Bodies Hem Pathologist Commnt Sodium Potassium Chloride Carbon Dioxide Anion Gap BUN Creatinine Estimated GFR BUN/Creatinine Ratio Glucose POC Glucose 177 H 189 H Calcium Ammonia Crossmatch See Detail 04/22/19 04/22/19 04/22/19 02:13 04:53 04:53 WBC 16.7 H RBC 2.72 L Hgb 9.6 L Hct 27.7 L D MCV 102 H MCH 35 H MCHC 35 H RDW 16.8 H Plt Count 85 L Add Manual Diff Complete Total Counted 100 Seg Neuts % (Manual) 92.0 H Band Neutrophils % 3.0 Lymphocytes % (Manual) 5.0 L Reactive Lymphs % (Man) 0 Monocytes % (Manual) 0 Eosinophils % (Manual) 0 Basophils % (Manual) 0 Metamyelocytes % 0 Myelocytes % 0 Promyelocytes % 0 Blast Cells % 0 Nucleated RBC % 11.0 H Seg Neutrophils # Man 15.4 H Band Neutrophils # 0.5 Lymphocytes # (Manual) 0.8 L Abs React Lymphs (Man) 0.0 Monocytes # (Manual) 0.0 Eosinophils # (Manual) 0.0 Basophils # (Manual) 0.0 Metamyelocytes # 0.0 Myelocytes # 0.0 Promyelocytes # 0.0 Blast Cells # 0.0 WBC Morphology Not Reportable Hypersegmented Neuts Not Reportable Hyposegmented Neuts Not Reportable Hypogranular Neuts Not Reportable Smudge Cells Not Reportable Toxic Granulation Not Reportable Toxic Vacuolation Not Reportable Dohle Bodies Not Reportable Pelger-Huet Anomaly Not Reportable Alicia Rods Not Reportable Platelet Estimate Consistent w auto Clumped Platelets Not Reportable Plt Clumps, EDTA Not Reportable Large Platelets Not Reportable Giant Platelets Not Reportable Platelet Satelliting Not Reportable Plt Morphology Comment Not Reportable RBC Morphology Not Reportable Dimorphic RBCs Not Reportable Polychromasia Few Hypochromasia Not Reportable Poikilocytosis Not Reportable Anisocytosis Not Reportable Microcytosis Not Reportable Macrocytosis 1+ Spherocytes Not Reportable Pappenheimer Bodies Not Reportable Sickle Cells Not Reportable Target Cells 1+ Tear Drop Cells Not Reportable Ovalocytes Not Reportable Helmet Cells Not Reportable [place] Bodies Not Reportable [place] Rings Not Reportable [place] Cells Not Reportable Bite Cells Not Reportable Crenated Cell Not Reportable Elliptocytes Not Reportable Acanthocytes (Spur) Not Reportable Rouleaux Not Reportable Hemoglobin C Crystals Not Reportable Schistocytes Not Reportable Malaria parasites Not Reportable David Bodies Not Reportable Hem Pathologist Commnt No Sodium 148 H Potassium 4.3 Chloride 110.3 H Carbon Dioxide 26 Anion Gap 16 BUN 68 H Creatinine 1.4 H Estimated GFR 45 BUN/Creatinine Ratio 49 Glucose 160 H POC Glucose 166 H Calcium 9.2 Ammonia Crossmatch 04/22/19 04/22/19 04/22/19 04:53 05:24 08:13 WBC RBC Hgb Hct MCV MCH MCHC RDW Plt Count Add Manual Diff Total Counted Seg Neuts % (Manual) Band Neutrophils % Lymphocytes % (Manual) Reactive Lymphs % (Man) Monocytes % (Manual) Eosinophils % (Manual) Basophils % (Manual) Metamyelocytes % Myelocytes % Promyelocytes % Blast Cells % Nucleated RBC % Seg Neutrophils # Man Band Neutrophils # Lymphocytes # (Manual) Abs React Lymphs (Man) Monocytes # (Manual) Eosinophils # (Manual) Basophils # (Manual) Metamyelocytes # Myelocytes # Promyelocytes # Blast Cells # WBC Morphology Hypersegmented Neuts Hyposegmented Neuts Hypogranular Neuts Smudge Cells Toxic Granulation Toxic Vacuolation Dohle Bodies Pelger-Huet Anomaly Alicia Rods Platelet Estimate Clumped Platelets Plt Clumps, EDTA Large Platelets Giant Platelets Platelet Satelliting Plt Morphology Comment RBC Morphology Dimorphic RBCs Polychromasia Hypochromasia Poikilocytosis Anisocytosis Microcytosis Macrocytosis Spherocytes Pappenheimer Bodies Sickle Cells Target Cells Tear Drop Cells Ovalocytes Helmet Cells [place] Bodies [place] Rings Tanya Cells Bite Cells Crenated Cell Elliptocytes Acanthocytes (Spur) Rouleaux Hemoglobin C Crystals Schistocytes Malaria parasites David Bodies Hem Pathologist Commnt Sodium Potassium Chloride Carbon Dioxide Anion Gap BUN Creatinine Estimated GFR BUN/Creatinine Ratio Glucose POC Glucose 97 161 H Calcium Ammonia 73.0 H Crossmatch 04/22/19 04/22/19 04/22/19 10:32 12:28 18:11 WBC RBC Hgb Hct MCV MCH MCHC RDW Plt Count Add Manual Diff Total Counted Seg Neuts % (Manual) Band Neutrophils % Lymphocytes % (Manual) Reactive Lymphs % (Man) Monocytes % (Manual) Eosinophils % (Manual) Basophils % (Manual) Metamyelocytes % Myelocytes % Promyelocytes % Blast Cells % Nucleated RBC % Seg Neutrophils # Man Band Neutrophils # Lymphocytes # (Manual) Abs React Lymphs (Man) Monocytes # (Manual) Eosinophils # (Manual) Basophils # (Manual) Metamyelocytes # Myelocytes # Promyelocytes # Blast Cells # WBC Morphology Hypersegmented Neuts Hyposegmented Neuts Hypogranular Neuts Smudge Cells Toxic Granulation Toxic Vacuolation Dohle Bodies Pelger-Huet Anomaly Alicia Rods Platelet Estimate Clumped Platelets Plt Clumps, EDTA Large Platelets Giant Platelets Platelet Satelliting Plt Morphology Comment RBC Morphology Dimorphic RBCs Polychromasia Hypochromasia Poikilocytosis Anisocytosis Microcytosis Macrocytosis Spherocytes Pappenheimer Bodies Sickle Cells Target Cells Tear Drop Cells Ovalocytes Helmet Cells [place] Bodies [place] Rings Tanya Cells Bite Cells Crenated Cell Elliptocytes Acanthocytes (Spur) Rouleaux Hemoglobin C Crystals Schistocytes Malaria parasites David Bodies Hem Pathologist Commnt Sodium Potassium Chloride Carbon Dioxide Anion Gap BUN Creatinine Estimated GFR BUN/Creatinine Ratio Glucose POC Glucose 151 H 154 H 151 H Calcium Ammonia Crossmatch
--- NOTE | 2019-04-22 21:11 | Vascular Lab Report ---
DUPLEX DOPPLER UPPER EXTREMITY ARTERIAL, BILATERAL INDICATION: UE is cold, blue and swollen. TECHNIQUE: Arterial duplex examination of both upper extremities performed using B-mode, color flow and spectral Doppler assessment. FINDINGS: RIGHT: Axillary: PSV 109 cm/sec. Biphasic waveform. Brachial: PSV 134 cm/sec. Biphasic waveform. Radial: PSV 50 cm/sec. Biphasic waveform. Ulnar: PSV 62 cm/sec. Biphasic waveform. IMPRESSION: 1. There is arterial flow to the wrist. There is some velocity elevation in the axillary and brachial artery but this does not appear to be hemodynamically significant. Signer Name: Sheldon Castañeda MD Signed: 04/22/2019 9:07 PM Workstation Name: [id number]
--- NOTE | 2019-04-22 21:16 | Vascular Lab Report ---
DUPLEX DOPPLER RIGHT UPPER EXTREMITY VEINS INDICATION: UE is cold, blue and swollen FINDINGS: Real-time, color, and spectral Doppler techniques utilized. FINDINGS: DVT is seen in the right brachial vein, antecubital fossa and radial vein.. IMPRESSION: Study is positive for DVT involving the right brachial vein and radial vein. CRITICAL RESULT: Dr. Castañeda called this report to patient's nurse, Lisa at time 2012 hours central time. Report was c onfirmed. Signer Name: Sheldon Castañeda MD Signed: 04/22/2019 9:12 PM Workstation Name: [id number]
--- NOTE | 2019-04-22 21:29 | Event Note ---
<CLARISSA PINTO - Last Filed: 04/22/19 21:28> Date: 04/22/19 Reviewed results with duplex Doppler of right upper extremity veins which revealed DVT and right brachial vein, antecubital fossa and radial vein. Patient has contraindications to anticoagulation. Vascular surgery has been consulted. Will defer findings to Vascular, recommendations appreciated. <LORENA MONTEJO - Last Filed: 04/22/19 21:51> Contriindication include maily G.I Bleed
[2019-04-23] MEDS: FREE WATER PO SCH ×2 (02:09→10:26)
[2019-04-23] MEDS: ALBUMIN HUMAN 25% (12.5 GM/50 ML) INJ IV SCH ×3 (06:00→22:38)
--- NOTE | 2019-04-23 08:45 | Progress Note ---
Assessment and Plan - Patient Problems (1) Acute kidney injury Current Visit: Yes Status: Acute Plan to address problem: Pre-renal azotemia versus acute tubular necrosis. Kidney function was improving. Labs pending today. Follow-up electrolytes and renal function (2) GI bleed Current Visit: Yes Status: Acute Plan to address problem: Status post EGD and treatment. Follow-up hemoglobin (3) Cirrhosis Current Visit: Yes Status: Chronic Plan to address problem: Continue management by physical therapist assistant. Patient on low-dose furosemide (4) Paroxysmal atrial fibrillation Current Visit: No Status: Acute Plan to address problem: Follow-up blood pressure (5) Liver mass Current Visit: Yes Status: Acute Plan to address problem: Continue management by tin container straightener (6) Encephalopathy, callosal demyelinating Current Visit: Yes Status: Acute Plan to address problem: Continue management by physical therapist assistant/tin container straightener (7) Hypernatremia Current Visit: Yes Status: Acute Plan to address problem: Increase free water intake and follow-up sodium Subjective Date of service: 04/23/19 Principal diagnosis: GI bleed Interval history: Patient seen lying in bed. Moaning and groaning. Making incomprehensible sounds. Son at bedside Objective - Exam Narrative Exam: Elderly -[place] female lying in bed comfortably ill-looking in no acute distress HEENT: NCAT, pink oral mucous membrane Neck: Supple, no venous distention CVS: S1S2 RRR with no murmur, rub or gallop Chest: Clear to auscultation, transmitted sounds Abdomen: Protuberant, soft, nontender, no organomegaly, bowel sounds are present Extremities: No edema Neuro: Moaning and groaning, no focal deficits - Vital Signs Vital signs: Vital Signs - 12hr 04/22/19 04/22/19 04/22/19 21:00 22:00 22:59 Pulse Rate 111 H 111 H 104 H Pulse Rate [ From Monitor] Respiratory 11 L 12 10 L Rate Blood Pressure 103/60 118/55 110/50 O2 Sat by Pulse 96 98 98 Oximetry 04/22/19 04/23/19 04/23/19 23:00 00:00 01:00 Pulse Rate 104 H 102 H 101 H Pulse Rate [ 99 H From Monitor] Respiratory 10 L 10 L 11 L Rate Blood Pressure 105/51 101/49 105/49 O2 Sat by Pulse 99 98 98 Oximetry 04/23/19 04/23/19 04/23/19 02:00 03:00 04:00 Pulse Rate 99 H 103 H 97 H Pulse Rate [ From Monitor] Respiratory 10 L 13 13 Rate Blood Pressure 95/47 109/55 102/50 O2 Sat by Pulse 98 98 98 Oximetry 04/23/19 04/23/19 04/23/19 04:15 05:00 06:00 Pulse Rate 103 H 105 H Pulse Rate [ 99 H From Monitor] Respiratory 12 15 13 Rate Blood Pressure 108/50 113/55 O2 Sat by Pulse 96 97 98 Oximetry - Lab 04/22/19 04:53 04/22/19 04:53 Most recent lab results Calcium 9.2 mg/dL (8.4-10.2) 04/22/19 04:53 Medications & Allergies - Medications Allergies/Adverse Reactions: Allergies Sulfa (Sulfonamide Antibiotics) Allergy (Verified 08/07/13 09:05) Unknown Home Medications: Home Medications Medication Instructions Recorded Confirmed Last Taken Type Aspirin [Baby Aspirin] 162 mg PO QDAY 08/07/13 04/17/19 04/16/19 History Atenolol [Tenormin] 25 mg PO DAILY 08/07/13 04/17/19 04/16/19 History Folic Acid/Vit B Complex and C 400 mcg PO DAILY 08/07/13 04/17/19 04/16/19 History [B-Complex with Vit C Caplet] Furosemide [Lasix] 20 mg PO DAILY 08/07/13 04/17/19 04/16/19 History Spironolactone [Aldactone] 50 mg PO QDAY 08/07/13 04/17/19 04/16/19 History traMADol [Ultram 50 MG tab] 50 mg PO Q6HR PRN #20 tablet 02/09/19 04/17/19 04/16/19 Rx Omeprazole 40 mg PO QDAY 04/17/19 04/17/19 04/16/19 History Active Medications: Generic Name Dose Route Start Last Admin Trade Name Freq PRN Reason Stop Dose Admin Acetaminophen 650 mg 04/17/19 11:00 Tylenol PO Q4H PRN Pain MILD(1-3)/Fever >100.5/TILLMAN Albumin Human 12.5 gm 04/22/19 14:00 04/23/19 06:00 Alburx 25% (Albumin) IV 04/24/19 06:01 12.5 gm Q8HR TIFFANY Administration Fentanyl 25 mcg 04/21/19 15:00 04/21/19 15:06 Duragesic TD 25 mcg Q3D TIFFANY Administration Hydromorphone HCl 0.5 mg 04/21/19 14:17 04/22/19 13:07 Dilaudid IV 0.5 mg Q3H PRN Administration Pain, Moderate (4-6) Octreotide Acetate 500 mcg/ 101 mls @ 5.05 mls/hr 04/17/19 10:00 04/22/19 20:50 Sodium Chloride IV 25 mcg/hr TITR TIFFANY 5.05 mls/hr Administration Protocol 25 MCG/HR Ceftriaxone Sodium 1 gm in 50 mls @ 100 mls/hr 04/17/19 10:00 04/22/19 09:47 Rocephin/Ns 1 Gm/50 Ml IV 04/23/19 10:29 100 mls/hr Q24HR TIFFANY Administration Protocol Dextrose 1,000 mls @ 42 mls/hr 04/22/19 12:00 D5w IV DIRECT TIFFANY Lactulose 20 gm 04/22/19 10:30 04/22/19 22:02 Cephulac MO 20 gm BID TIFFANY Administration Lorazepam 1 mg 04/22/19 15:39 04/22/19 15:48 Ativan IV 1 mg Q4H PRN Administration Agitation Ondansetron HCl 4 mg 04/17/19 11:00 04/18/19 08:51 Zofran IV 4 mg Q8H PRN Administration Nausea And Vomiting Pantoprazole Sodium 40 mg 04/20/19 22:00 04/22/19 22:01 Protonix IV 40 mg BID TIFFANY Administration Rifaximin 550 mg 04/19/19 22:00 04/22/19 22:33 Xifaxan PO Not Given BID TIFFANY Sodium Chloride 10 ml 04/17/19 11:00 04/22/19 22:01 Sodium Chloride Flush Syringe 10 Ml IV 10 ml BID TIFFANY Administration Sodium Chloride 10 ml 04/17/19 11:00 Sodium Chloride Flush Syringe 10 Ml IV PRN PRN LINE FLUSH
[2019-04-23 08:46] LABS: Hematocrit 25.7 % (30.3-42.9); Hemoglobin 8.8 gm/dl (10.1-14.3); Mean Corpuscular HGB Conc 34 % (30-34); Mean Corpuscular Volume 105 fl (79-97); Red Blood Count 2.46 M/mm3 (3.65-5.03); Red Cell Distribution Width 17.3 % (13.2-15.2)
[2019-04-23 08:58] LABS: Platelet Count 74 K/mm3 (140-440)
[2019-04-23 09:04] LABS: Calcium 9.1 mg/dL (8.4-10.2)
[2019-04-23] MEDS: RIFAXIMIN 550 MG TAB PO SCH ×2 (10:26→22:38)
[2019-04-23] MEDS: PANTOPRAZOLE 40 MG INJ IV SCH ×2 (10:26→22:38)
[2019-04-23] MEDS: cefTRIAXone/NS 1 GM/50 ML 1 GM/50 ML BAG IV SCH (10:26)
--- NOTE | 2019-04-23 10:34 | Gastroenterology Progress Note ---
Assessment and Plan 1. Variceal bleed - no further signs of bleeding since procedure. wean off octreotide. complete empiric course of abx 2. Hepatic encephalopathy - lactulose enema dose adjusted today by pharmacy. ammonia down but remains confused. need to continue lactulose enemas today + xifaxin 3. Numerous liver lesions - MRI and high AFP diagnostic for HCC. outside [place] criteria (not a tx candidate). defer further management to oncology 4. Lung lesions Subjective Date of service: 04/23/19 Principal diagnosis: GI bleed Interval history: Patient seen and examined; awake but remains altered/confused. No bleeding episodes overnight. Objective - Constitutional Vitals: Temp Pulse Resp BP Pulse Ox 97.4 F L 101 H 13 113/55 97 04/23/19 08:00 04/23/19 08:00 04/23/19 08:00 04/23/19 06:00 04/23/19 08:00 General appearance: other (altered/confused) - EENT ENT: poor dentition - Respiratory Respiratory effort: normal Respiratory: bilateral: CTA - Cardiovascular Rhythm: regular Heart Sounds: Present: S1 & S2 - Gastrointestinal General gastrointestinal: Present: soft, non-tender - Neurologic Neurological: disoriented - Labs CBC & Chem 7: 04/23/19 08:24 04/23/19 08:24 Labs: Laboratory Results - last 24 hr 04/21/19 04/22/19 04/22/19 17:22 04:53 10:32 WBC 16.7 H RBC Hgb Hct MCV MCH MCHC RDW Plt Count Add Manual Diff Complete Total Counted 100 Seg Neuts % (Manual) 92.0 H Band Neutrophils % 3.0 Lymphocytes % (Manual) 5.0 L Reactive Lymphs % (Man) 0 Monocytes % (Manual) 0 Eosinophils % (Manual) 0 Basophils % (Manual) 0 Metamyelocytes % 0 Myelocytes % 0 Promyelocytes % 0 Blast Cells % 0 Nucleated RBC % 11.0 H Seg Neutrophils # Man 15.4 H Band Neutrophils # 0.5 Lymphocytes # (Manual) 0.8 L Abs React Lymphs (Man) 0.0 Monocytes # (Manual) 0.0 Eosinophils # (Manual) 0.0 Basophils # (Manual) 0.0 Metamyelocytes # 0.0 Myelocytes # 0.0 Promyelocytes # 0.0 Blast Cells # 0.0 WBC Morphology Not Reportable Hypersegmented Neuts Not Reportable Hyposegmented Neuts Not Reportable Hypogranular Neuts Not Reportable Smudge Cells Not Reportable Toxic Granulation Not Reportable Toxic Vacuolation Not Reportable Dohle Bodies Not Reportable Pelger-Huet Anomaly Not Reportable Alicia Rods Not Reportable Platelet Estimate Consistent w auto Clumped Platelets Not Reportable Plt Clumps, EDTA Not Reportable Large Platelets Not Reportable Giant Platelets Not Reportable Platelet Satelliting Not Reportable Plt Morphology Comment Not Reportable RBC Morphology Not Reportable Dimorphic RBCs Not Reportable Polychromasia Few Hypochromasia Not Reportable Poikilocytosis Not Reportable Anisocytosis Not Reportable Microcytosis Not Reportable Macrocytosis 1+ Spherocytes Not Reportable Pappenheimer Bodies Not Reportable Sickle Cells Not Reportable Target Cells 1+ Tear Drop Cells Not Reportable Ovalocytes Not Reportable Helmet Cells Not Reportable [place] Bodies Not Reportable [place] Spur Rings Not Reportable Tanya Cells Not Reportable Bite Cells Not Reportable Crenated Cell Not Reportable Elliptocytes Not Reportable Acanthocytes (Spur) Not Reportable Rouleaux Not Reportable Hemoglobin C Crystals Not Reportable Schistocytes Not Reportable Malaria parasites Not Reportable David Bodies Not Reportable Hem Pathologist Commnt No Sodium Potassium Chloride Carbon Dioxide Anion Gap BUN Creatinine Estimated GFR BUN/Creatinine Ratio Glucose POC Glucose 215 H 151 H Calcium Ammonia 04/22/19 04/22/19 04/23/19 12:28 18:11 08:24 WBC RBC 2.46 L Hgb 8.8 L Hct 25.7 L MCV 105 H MCH 36 H MCHC 34 RDW 17.3 H Plt Count 74 L Add Manual Diff Total Counted Seg Neuts % (Manual) Band Neutrophils % Lymphocytes % (Manual) Reactive Lymphs % (Man) Monocytes % (Manual) Eosinophils % (Manual) Basophils % (Manual) Metamyelocytes % Myelocytes % Promyelocytes % Blast Cells % Nucleated RBC % Seg Neutrophils # Man Band Neutrophils # Lymphocytes # (Manual) Abs React Lymphs (Man) Monocytes # (Manual) Eosinophils # (Manual) Basophils # (Manual) Metamyelocytes # Myelocytes # Promyelocytes # Blast Cells # WBC Morphology Hypersegmented Neuts Hyposegmented Neuts Hypogranular Neuts Smudge Cells Toxic Granulation Toxic Vacuolation Dohle Bodies Pelger-Huet Anomaly Alicia Rods Platelet Estimate Clumped Platelets Plt Clumps, EDTA Large Platelets Giant Platelets Platelet Satelliting Plt Morphology Comment RBC Morphology Dimorphic RBCs Polychromasia Hypochromasia Poikilocytosis Anisocytosis Microcytosis Macrocytosis Spherocytes Pappenheimer Bodies Sickle Cells Target Cells Tear Drop Cells Ovalocytes Helmet Cells [place] Bodies [place] Sp[place] Rings [place] Cells Bite Cells Crenated Cell Elliptocytes Acanthocytes (Spur) Rouleaux Hemoglobin C Crystals Schistocytes Malaria parasites David Bodies Hem Pathologist Commnt Sodium Potassium Chloride Carbon Dioxide Anion Gap BUN Creatinine Estimated GFR BUN/Creatinine Ratio Glucose POC Glucose 154 H 151 H Calcium Ammonia 04/23/19 04/23/19 08:24 08:24 WBC RBC Hgb Hct MCV MCH MCHC RDW Plt Count Add Manual Diff Total Counted Seg Neuts % (Manual) Band Neutrophils % Lymphocytes % (Manual) Reactive Lymphs % (Man) Monocytes % (Manual) Eosinophils % (Manual) Basophils % (Manual) Metamyelocytes % Myelocytes % Promyelocytes % Blast Cells % Nucleated RBC % Seg Neutrophils # Man Band Neutrophils # Lymphocytes # (Manual) Abs React Lymphs (Man) Monocytes # (Manual) Eosinophils # (Manual) Basophils # (Manual) Metamyelocytes # Myelocytes # Promyelocytes # Blast Cells # WBC Morphology Hypersegmented Neuts Hyposegmented Neuts Hypogranular Neuts Smudge Cells Toxic Granulation Toxic Vacuolation Dohle Bodies Pelger-Huet Anomaly Alicia Rods Platelet Estimate Clumped Platelets Plt Clumps, EDTA Large Platelets Giant Platelets Platelet Satelliting Plt Morphology Comment RBC Morphology Dimorphic RBCs Polychromasia Hypochromasia Poikilocytosis Anisocytosis Microcytosis Macrocytosis Spherocytes Pappenheimer Bodies Sickle Cells Target Cells Tear Drop Cells Ovalocytes Helmet Cells [place] Bodies [place] Sp[place] Rings Tanya Cells Bite Cells Crenated Cell Elliptocytes Acanthocytes (Spur) Rouleaux Hemoglobin C Crystals Schistocytes Malaria parasites David Bodies Hem Pathologist Commnt Sodium 151 H Potassium 5.0 Chloride 109.2 H Carbon Dioxide 24 Anion Gap 23 BUN 96 H Creatinine 2.9 H D Estimated GFR 19 BUN/Creatinine Ratio 33 Glucose 181 H POC Glucose Calcium 9.1 Ammonia 41.0
[2019-04-23 10:43] LABS: Basophils % (Manual) 0 % (0.0-1.8); Eosinophils % (Manual) 0 % (0.0-4.3); Total Cells Counted 100
[2019-04-23 10:44] LABS: Anisocytosis 1+; Macrocytosis 1+; Platelet Estimate Consistent w Auto; Target Cells 1+
--- NOTE | 2019-04-23 11:40 | Progress Note ---
Assessment and Plan 73-year-old woman with history of hep C, cirrhosis, questionable history of hepatocellular carcinoma which is being worked up at outside hospital. The patient has chronic ascites who gets frequent paracentesis, last paracentesis was 04/01/2019, was due for another on day of admission. She presented with hemoptysis and melena. MRI liver; shows cirrhosis with extensive multifocal HCC throughout all segments of the liver with enhancing portal vein tumor thrombus extending into SMV which has progressed since prior study. There is right lower lobe pleural-based mass which is unchanged and also worrisome for neoplasm, new splenic infarcts, unchanged cholelithiasis, ascites is noted as well as small abdominal varices. Acute limb/right upper extremity Right upper extremity is cold and blue with poor pulses. Cannot give blood thinner given GI bleeding and varices. Obtain stat vascular ultrasound. -The patient has a very poor prognosis, vascular surgery consult Acute upper GI bleed/acute blood anemia Concern for variceal bleeding, GI consulted, hemoglobin currently stable. Management per GI PPI Twice daily, octreotide ggt, sp EGD 04/17 showed esophageal varices, they were not actively bleeding, they were banded. 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 Zavala. Patient had right lung mass and liver lesions from [facility] in January of this year. Apparently family were made aware, they were referred to transplant/hepatology oncology,. It appears that the patient was lost to follow-up -Oncology consulted Hepatitis C/cirrhosis/decompensated liver disease Ascites sp paracentesis 04/19, 6.6 L removed, ascites already reaccumulating acute Hepatic encephalopathy Unable to tolerate oral lactulose, avoid NG tube given recently banded esophag eal varices. Repeat lactulose enema today. Acute metabolic encephalopathy and progression of extensive cancer Fentanyl patch fell off, nurse has placed it and reinforce states to avoid it from falling off. IV Dilaudid as needed, Ativan as needed for restlessness. Hyperkalemia, PINO likely due to vasomotor nephropathy sp insulin and D50, resolved -Nephrology consult appreciated Hypernatremia This is because the patient is dehydrated, she has not been able to tolerate p.o. for several days due to mental status. Put her on dextrose. Going at a slow rate , given ascites. Severe malnutrition Patient is not eating, she is refusing everything and is very restless and appears to be in pain. Will hold diet for now and reassess if patient is able to tolerate in the future. Avoid NG tube given multiple varices DVT prophylaxis; SCDs and early ambulation in light of GI bleed. Discussed with family member in the room. Recommended DO NOT RESUSCITATE as prognosis is poor. Noted previously that family is interested in being evaluated for transplant, adviced that they can see hepatology transplant service at [place] or [place] if patient is to improve. But given the criteria, the patient is not a candidate for transplant. The family appears skeptical and would like to get their own opinion when the patient hopefully improves Subjective Date of service: 04/23/19 Principal diagnosis: GI bleed, cirrhosis, hepatitis C, esophageal varices Interval history: Very confused. Patient's family member by the bedside. Discussed with patient. No overnight events reported. Objective - Exam Narrative Exam: Constitutional: Confused Head: Normocephalic atraumatic Eyes: Pupils are equal round and reactive to light Nose: No enlarged turbinates, no septal deviation. Mouth: Moist mucous membranes. Neck: Supple no thyromegaly. No bruit. No JVD Heart: Regular rate and rhythm, S1-S2 normal. No rubs murmurs or gallop Lungs: Clear to auscultation bilaterally. no rales or rhonchi Abdomen: Soft, ascites . Extremities: No edema, no cyanosis, no clubbing. Neuro: Alert oriented Oriented x3. No focal sensory or motor deficit. Skin: No rashes or hyperpigmented spots Musculoskeletal system: No joint pain or swelling Hematological: No petechia or subcutanous hemorrhages. Immunological: No multiple septic spots on the skin Lymphatic: No generalized lymphadenopathy Psychiatry: Euthymic. Calm. - Constitutional Vitals: Vital Signs - 12hr 04/23/19 04/23/19 04/23/19 00:00 01:00 02:00 Temperature Pulse Rate 102 H 101 H 99 H Pulse Rate [ 99 H From Monitor] Respiratory 10 L 11 L 10 L Rate Blood Pressure 101/49 105/49 95/47 O2 Sat by Pulse 98 98 98 Oximetry 04/23/19 04/23/19 04/23/19 03:00 04:00 04:15 Temperature Pulse Rate 103 H 97 H Pulse Rate [ 99 H From Monitor] Respiratory 13 13 12 Rate Blood Pressure 109/55 102/50 O2 Sat by Pulse 98 98 96 Oximetry 04/23/19 04/23/19 04/23/19 05:00 06:00 08:00 Temperature 97.4 F L Pulse Rate 103 H 105 H 101 H Pulse Rate [ 101 H From Monitor] Respiratory 15 13 13 Rate Blood Pressure 108/50 113/55 O2 Sat by Pulse 97 98 97 Oximetry - Labs CBC & Chem 7: 04/23/19 08:24 04/23/19 08:24 Labs: Abnormal lab results 04/21/19 04/22/19 04/22/19 Range/Units 17:22 12:28 18:11 WBC (4.5-11.0) K/mm3 RBC (3.65-5.03) M/mm3 Hgb (10.1-14.3) gm/dl Hct (30.3-42.9) % MCV (79-97) fl MCH (28-32) pg RDW (13.2-15.2) % Plt Count (140-440) K/mm3 Seg Neuts % (Manual) (40.0-70.0) % Lymphocytes % (Manual) (13.4-35.0) % Nucleated RBC % (0.0-0.9) % Seg Neutrophils # Man (1.8-7.7) K/mm3 Lymphocytes # (Manual) (1.2-5.4) K/mm3 Sodium (137-145) mmol/L Chloride (98-107) mmol/L BUN (7-17) mg/dL Creatinine (0.7-1.2) mg/dL Glucose (65-100) mg/dL POC Glucose 215 H 154 H 151 H (70-105) 04/23/19 04/23/19 Range/Units 08:24 08:24 WBC 16.1 H (4.5-11.0) K/mm3 RBC 2.46 L (3.65-5.03) M/mm3 Hgb 8.8 L (10.1-14.3) gm/dl Hct 25.7 L (30.3-42.9) % MCV 105 H (79-97) fl MCH 36 H (28-32) pg RDW 17.3 H (13.2-15.2) % Plt Count 74 L (140-440) K/mm3 Seg Neuts % (Manual) 86.0 H (40.0-70.0) % Lymphocytes % (Manual) 5.0 L (13.4-35.0) % Nucleated RBC % 27.0 H (0.0-0.9) % Seg Neutrophils # Man 0.0 L (1.8-7.7) K/mm3 Lymphocytes # (Manual) 0.0 L (1.2-5.4) K/mm3 Sodium 151 H (137-145) mmol/L Chloride 109.2 H (98-107) mmol/L BUN 96 H (7-17) mg/dL Creatinine 2.9 H D (0.7-1.2) mg/dL Glucose 181 H (65-100) mg/dL POC Glucose (70-105)
--- NOTE | 2019-04-23 12:36 | Consultation ---
History of Present Illness - Reason for Consult Consult date: 04/23/19 Ischemic RUE - History of Present Illness Patient is a 73 y/o female who was presented to ED with c/o vomiting blood and abdominal distention to which GI has been consulted. 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 There is also suspicion that she has hepatocellular carcinoma due to liver lesion seen on CT during a prior hospitalization at [facility] 01/2019 for worsening ascites with AFP just last week on 04/13/19 >800. She has an outpatient MRI scheduled 04/19/2019 for further evaluation and has been referred to [facility] for further evaluation but has not followed up with their service or with oncology as previously recommended. This morning patient was resting on stretcher in ED w/o acute distress and family at bedside. She reports multiple episodes of black stool that began overnight along with 1 episode of vomiting dark maroon blood on her way to ED this am. Admits to generalized abd discomfort/fullness associated with ascites but denies fever, CP, SOB, hematochezia, diarrhea, or constipation. Takes daily ASA at home but no other blood thinning medications. No prior EGD. Has quit drinking alcohol completely. Of note, there is a Fhx of her sister with esophageal CA per office chart review. PMH significant for Afib. Vascular consultation for ischemic right upper extremity. Patient has a palpable mid right ulnar and radial pulse, but the distal radial ulnar pulses not as easy to palpate. Patient is completely altered and flailing. Arterial Doppler study demonstrates biphasic flow in the radial and ulnar artery. Venous study demonstrates deep venous thrombosis in the radial and brachial vein. The first 4 fingers are cyanotic, dusky, and cold with coolness of the fifth finger. She cannot be anticoagulated due to recent GI bleed. There is active acute renal failure. MRI demonstrates invasive hepatic carcinoma with diffuse involvement of the liver. Past History Past Medical History: anemia, hepatitis, liver disease, other (as per HPI) Past Surgical History: hernia repair Social history: other (former smoker; former ETOH abuse (not actively drinking)) Family history: other (esophageal CA-sister) Medications and Allergies Allergies Allergy/AdvReac Type Severity Reaction Status Date / Time Sulfa (Sulfonamide Allergy Unknown Verified 08/07/13 09:05 Antibiotics) Home Medications Medication Instructions Recorded Confirmed Last Taken Type Aspirin [Baby Aspirin] 162 mg PO QDAY 08/07/13 04/17/19 04/16/19 History Atenolol [Tenormin] 25 mg PO DAILY 08/07/13 04/17/19 04/16/19 History Folic Acid/Vit B Complex and C 400 mcg PO DAILY 08/07/13 04/17/19 04/16/19 History [B-Complex with Vit C Caplet] Furosemide [Lasix] 20 mg PO DAILY 08/07/13 04/17/19 04/16/19 History Spironolactone [Aldactone] 50 mg PO QDAY 08/07/13 04/17/19 04/16/19 History traMADol [Ultram 50 MG tab] 50 mg PO Q6HR PRN #20 tablet 02/09/19 04/17/19 04/16/19 Rx Omeprazole 40 mg PO QDAY 04/17/19 04/17/19 04/16/19 History Active Meds: Active Medications Acetaminophen (Tylenol) 650 mg PO Q4H PRN PRN Reason: Pain MILD(1-3)/Fever >100.5/TILLMAN Albumin Human (Alburx 25% (Albumin)) 12.5 gm IV Q8HR TIFFANY Stop: 04/24/19 06:01 Last Admin: 04/23/19 06:00 Dose: 12.5 gm Documented by: Fentanyl (Duragesic) 25 mcg TD Q3D TIFFANY Last Admin: 04/21/19 15:06 Dose: 25 mcg Documented by: Hydromorphone HCl (Dilaudid) 0.5 mg IV Q3H PRN PRN Reason: Pain, Moderate (4-6) Last Admin: 04/22/19 13:07 Dose: 0.5 mg Documented by: Octreotide Acetate 500 mcg/ (Sodium Chloride) 101 mls @ 5.05 mls/hr IV TITR TIFFANY; Protocol Last Admin: 04/22/19 20:50 Dose: 25 mcg/hr, 5.05 mls/hr Documented by: Dextrose (D5w) 1,000 mls @ 42 mls/hr IV DIRECT TIFFANY Lactulose (Cephulac) 200 gm HI BID TIFFANY Lorazepam (Ativan) 1 mg IV Q4H PRN PRN Reason: Agitation Last Admin: 04/22/19 15:48 Dose: 1 mg Documented by: Ondansetron HCl (Zofran) 4 mg IV Q8H PRN PRN Reason: Nausea And Vomiting Last Admin: 04/18/19 08:51 Dose: 4 mg Documented by: Pantoprazole Sodium (Protonix) 40 mg IV BID [facility] Last Admin: 04/23/19 10:26 Dose: 40 mg Documented by: Rifaximin (Xifaxan) 550 mg PO BID [facility] Last Admin: 04/23/19 10:26 Dose: Not Given Documented by: Sodium Chloride (Sodium Chloride Flush Syringe 10 Ml) 10 ml IV BID [facility] Last Admin: 04/23/19 10:26 Dose: 10 ml Documented by: Sodium Chloride (Sodium Chloride Flush Syringe 10 Ml) 10 ml IV PRN PRN PRN Reason: LINE FLUSH Review of Systems ROS unobtainable: due to mental status Exam - Constitutional Vitals: Temp Pulse Resp BP Pulse Ox 97.3 F L 101 H 13 113/55 97 04/23/19 12:00 04/23/19 08:00 04/23/19 08:00 04/23/19 06:00 04/23/19 08:00 General appearance: Present: cachectic, other (altered mental status, A&O x 0 ) - EENT ENT: other (altered mental status, A&O x 0 ) - Respiratory Respiratory effort: other (altered mental status, A&O x 0 ) - Extremities Extremities: abnormal (see HPI) - Psychiatric Psychiatric: agitated, other (altered mental status, A&O x 0 ) Results - Labs CBC & Chem 7: 04/23/19 08:24 04/23/19 08:24 Labs: Abnormal lab results 04/21/19 04/22/19 04/22/19 Range/Units 17:22 12:28 18:11 WBC (4.5-11.0) K/mm3 RBC (3.65-5.03) M/mm3 Hgb (10.1-14.3) gm/dl Hct (30.3-42.9) % MCV (79-97) fl MCH (28-32) pg RDW (13.2-15.2) % Plt Count (140-440) K/mm3 Seg Neuts % (Manual) (40.0-70.0) % Lymphocytes % (Manual) (13.4-35.0) % Nucleated RBC % (0.0-0.9) % Seg Neutrophils # Man (1.8-7.7) K/mm3 Lymphocytes # (Manual) (1.2-5.4) K/mm3 Sodium (137-145) mmol/L Chloride (98-107) mmol/L BUN (7-17) mg/dL Creatinine (0.7-1.2) mg/dL Glucose (65-100) mg/dL POC Glucose 215 H 154 H 151 H (70-105) 04/23/19 04/23/19 Range/Units 08:24 08:24 WBC 16.1 H (4.5-11.0) K/mm3 RBC 2.46 L (3.65-5.03) M/mm3 Hgb 8.8 L (10.1-14.3) gm/dl Hct 25.7 L (30.3-42.9) % MCV 105 H (79-97) fl MCH 36 H (28-32) pg RDW 17.3 H (13.2-15.2) % Plt Count 74 L (140-440) K/mm3 Seg Neuts % (Manual) 86.0 H (40.0-70.0) % Lymphocytes % (Manual) 5.0 L (13.4-35.0) % Nucleated RBC % 27.0 H (0.0-0.9) % Seg Neutrophils # Man 0.0 L (1.8-7.7) K/mm3 Lymphocytes # (Manual) 0.0 L (1.2-5.4) K/mm3 Sodium 151 H (137-145) mmol/L Chloride 109.2 H (98-107) mmol/L BUN 96 H (7-17) mg/dL Creatinine 2.9 H D (0.7-1.2) mg/dL Glucose 181 H (65-100) mg/dL POC Glucose (70-105) - Imaging and Cardiology Venous US: report reviewed, image reviewed Assessment and Plan 73-year-old female with numerous comorbidities admitted for decompensated cirrhosis with variceal bleed who has diffuse invasive hepatocellular carcinoma with recommendation for hospice by other medical providers but patient's family has declined who now presents with ischemic right upper extremity. Patient is not a candidate for anticoagulation. Despite arterial ultrasound demonstrating arterial Dopplers with biphasic signal in the radial and ulnar artery with venous thrombosis, physical exam is more concerning for arterial ischemia with ischemic hand rather than venous issues. Not phlegmasia. There is a puncture near the hand which is also concerning for possible infiltration of IV/arterial cannulation with IV and the hand is swollen. Patient also has atrial fibrillation and is not currently being anticoagulated. I suspect the patient has suffered some arterial showering or infusion event of the right upper extremity. The fingers are cyanotic and discolored. May start to demarcate. Patient is not a candidate for any intervention given her current clinical status, and contraindication to anticoagulation. Even warm compresses (15 min on and 15 min off) will not be able to be performed due to active flailing and movement. Given her advanced diffuse hepatocellular carinoma and active issues, I recommended hospice. Family declined.
[2019-04-23] MEDS: LORazepam 2 MG/ML VIAL IV PRN (14:25)
[2019-04-23] MEDS: OCTREOTIDE 500 MCG in SODIUM CHLORIDE 0.9% 100 ML IV SCH (14:26)
[2019-04-23] MEDS: LACTULOSE ENEMA 1000 ML PR SCH ×2 (14:33→22:38)
[2019-04-24] MEDS: FREE WATER PO SCH ×3 (01:34→09:33)
[2019-04-24 04:43] LABS: Hematocrit 27.3 % (30.3-42.9); Hemoglobin 9.1 gm/dl (10.1-14.3); Mean Corpuscular HGB Conc 33 % (30-34); Mean Corpuscular Volume 107 fl (79-97); Red Blood Count 2.56 M/mm3 (3.65-5.03); Red Cell Distribution Width 17.5 % (13.2-15.2)
[2019-04-24 04:50] LABS: Calcium 9.3 mg/dL (8.4-10.2)
[2019-04-24 04:52] LABS: INR 1.94 (0.87-1.13)
[2019-04-24 04:53] LABS: Partial Thromboplastin Time 28.8 Sec. (24.2-36.6)
[2019-04-24 04:55] LABS: Platelet Count 58 K/mm3 (140-440)
--- NOTE | 2019-04-24 05:21 | Event Note ---
Date: 04/23/19 [id number]
[2019-04-24] MEDS: ALBUMIN HUMAN 25% (12.5 GM/50 ML) INJ IV SCH (06:09)
[2019-04-24 06:31] LABS: Basophils % (Manual) 0 % (0.0-1.8); Total Cells Counted 100
[2019-04-24 06:34] LABS: Macrocytosis Few; Target Cells Few
[2019-04-24 06:35] LABS: Platelet Estimate Consistent w Auto
--- NOTE | 2019-04-24 07:30 | Hem/Onc Progress Note ---
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 - sec to cirrhosis DVT - brachial - h/o recent bleed - no anicoagulation planned due to bleed h/o varices d/w - hospice at home - d/c planned - Patient Problems (1) Liver mass Status: Acute Subjective Date of service: 04/24/19 Principal diagnosis: HCC Interval history: agitated Objective - Exam Narrative Exam: Pain - not evaluable -pt agitated General appearance - agitated Performance status complete dependent Eyes - icterus ENT - no bleeding LNs cervical not palpable Neck - no LN Respiratory Normal Breath sounds - CTA anteriorly CVS S1 S2 + Extremities +edema General GI Soft distended Rectal deferred female - deferred Skin warm Musculoskeletal moves limbs Neurologically - awake - agitated - Constitutional Vitals: Last Vital Signs Temp 97.5 F L 04/24/19 04:00 Pulse 95 H 04/24/19 06:00 Resp 17 04/24/19 06:00 BP 114/53 04/24/19 06:00 Pulse Ox 98 04/24/19 06:00 - Labs Lab Results: Laboratory Results - last 24 hr 04/23/19 04/23/19 04/23/19 08:24 08:24 08:24 WBC 16.1 H RBC 2.46 L Hgb 8.8 L Hct 25.7 L MCV 105 H MCH 36 H MCHC 34 RDW 17.3 H Plt Count 74 L Add Manual Diff Complete Total Counted 100 Seg Neuts % (Manual) 86.0 H Band Neutrophils % 3.0 Lymphocytes % (Manual) 5.0 L Reactive Lymphs % (Man) 3.0 Monocytes % (Manual) 2.0 Eosinophils % (Manual) 0 Basophils % (Manual) 0 Metamyelocytes % 1.0 Myelocytes % 0 Promyelocytes % 0 Blast Cells % 0 Nucleated RBC % 27.0 H Seg Neutrophils # Man 0.0 L Band Neutrophils # 0.0 Lymphocytes # (Manual) 0.0 L Abs React Lymphs (Man) 0.0 Monocytes # (Manual) 0.0 Eosinophils # (Manual) 0.0 Basophils # (Manual) 0.0 Metamyelocytes # 0.0 Myelocytes # 0.0 Promyelocytes # 0.0 Blast Cells # 0.0 WBC Morphology Not Reportable Hypersegmented Neuts Not Reportable Hyposegmented Neuts Not Reportable Hypogranular Neuts Not Reportable Smudge Cells Not Reportable Toxic Granulation Not Reportable Toxic Vacuolation Not Reportable Dohle Bodies Not Reportable Pelger-Huet Anomaly Not Reportable Alicia Rods Not Reportable Platelet Estimate Consistent w auto Clumped Platelets Not Reportable Plt Clumps, EDTA Not Reportable Large Platelets Not Reportable Giant Platelets Not Reportable Platelet Satelliting Not Reportable Plt Morphology Comment Not Reportable RBC Morphology Not Reportable Dimorphic RBCs Not Reportable Polychromasia Few Hypochromasia Not Reportable Poikilocytosis Not Reportable Anisocytosis 1+ Microcytosis Not Reportable Macrocytosis 1+ Spherocytes Not Reportable Pappenheimer Bodies Not Reportable Sickle Cells Not Reportable Target Cells 1+ Tear Drop Cells Not Reportable Ovalocytes Not Reportable Helmet Cells Not Reportable [place] Bodies Not Reportable [place] Rings Not Reportable Tanya Cells Not Reportable Bite Cells Not Reportable Crenated Cell Not Reportable Elliptocytes Not Reportable Acanthocytes (Spur) Not Reportable Rouleaux Not Reportable Hemoglobin C Crystals Not Reportable Schistocytes Not Reportable Malaria parasites Not Reportable David Bodies Not Reportable Hem Pathologist Commnt No PT INR APTT Sodium 151 H Potassium 5.0 Chloride 109.2 H Carbon Dioxide 24 Anion Gap 23 BUN 96 H Creatinine 2.9 H D Estimated GFR 19 BUN/Creatinine Ratio 33 Glucose 181 H Calcium 9.1 Phosphorus Magnesium Ammonia 41.0 04/24/19 04/24/19 04/24/19 04:23 04:23 04:23 WBC 14.7 H RBC 2.56 L Hgb 9.1 L Hct 27.3 L MCV 107 H MCH 36 H MCHC 33 RDW 17.5 H Plt Count 58 L Add Manual Diff Complete Total Counted 100 Seg Neuts % (Manual) 86.0 H Band Neutrophils % 0 Lymphocytes % (Manual) 10.0 L Reactive Lymphs % (Man) 0 Monocytes % (Manual) 2.0 Eosinophils % (Manual) 1.0 Basophils % (Manual) 0 Metamyelocytes % 1.0 Myelocytes % 0 Promyelocytes % 0 Blast Cells % 0 Nucleated RBC % 12.0 H Seg Neutrophils # Man 13.2 H Band Neutrophils # 0.0 Lymphocytes # (Manual) 1.5 Abs React Lymphs (Man) 0.0 Monocytes # (Manual) 0.3 Eosinophils # (Manual) 0.2 Basophils # (Manual) 0.0 Metamyelocytes # 0.2 Myelocytes # 0.0 Promyelocytes # 0.0 Blast Cells # 0.0 WBC Morphology Not Reportable Hypersegmented Neuts Not Reportable Hyposegmented Neuts Not Reportable Hypogranular Neuts Not Reportable Smudge Cells Not Reportable Toxic Granulation Not Reportable Toxic Vacuolation Not Reportable Dohle Bodies Not Reportable Pelger-Huet Anomaly Not Reportable Alicia Rods Not Reportable Platelet Estimate Consistent w auto Clumped Platelets Not Reportable Plt Clumps, EDTA Not Reportable Large Platelets Not Reportable Giant Platelets Not Reportable Platelet Satelliting Not Reportable Plt Morphology Comment Not Reportable RBC Morphology Not Reportable Dimorphic RBCs Not Reportable Polychromasia Few Hypochromasia Not Reportable Poikilocytosis Not Reportable Anisocytosis Not Reportable Microcytosis Not Reportable Macrocytosis Few Spherocytes Not Reportable Pappenheimer Bodies Not Reportable Sickle Cells Not Reportable Target Cells Few Tear Drop Cells Not Reportable Ovalocytes Not Reportable Helmet Cells Not Reportable [place] Bodies Not Reportable [place] Rings Not Reportable [place] Cells Not Reportable Bite Cells Not Reportable Crenated Cell Not Reportable Elliptocytes Not Reportable Acanthocytes (Spur) Not Reportable Rouleaux Not Reportable Hemoglobin C Crystals Not Reportable Schistocytes Not Reportable Malaria parasites Not Reportable David Bodies Not Reportable Hem Pathologist Commnt No PT INR APTT Sodium 153 H Potassium 4.2 Chloride 113.9 H Carbon Dioxide 26 Anion Gap 17 BUN 94 H Creatinine 2.3 H Estimated GFR 25 BUN/Creatinine Ratio 41 Glucose 147 H Calcium 9.3 Phosphorus 4.50 Magnesium 4.10 H Ammonia 34.0 04/24/19 04:23 WBC RBC Hgb Hct MCV MCH MCHC RDW Plt Count Add Manual Diff Total Counted Seg Neuts % (Manual) Band Neutrophils % Lymphocytes % (Manual) Reactive Lymphs % (Man) Monocytes % (Manual) Eosinophils % (Manual) Basophils % (Manual) Metamyelocytes % Myelocytes % Promyelocytes % Blast Cells % Nucleated RBC % Seg Neutrophils # Man Band Neutrophils # Lymphocytes # (Manual) Abs React Lymphs (Man) Monocytes # (Manual) Eosinophils # (Manual) Basophils # (Manual) Metamyelocytes # Myelocytes # Promyelocytes # Blast Cells # WBC Morphology Hypersegmented Neuts Hyposegmented Neuts Hypogranular Neuts Smudge Cells Toxic Granulation Toxic Vacuolation Dohle Bodies Pelger-Huet Anomaly Alicia Rods Platelet Estimate Clumped Platelets Plt Clumps, EDTA Large Platelets Giant Platelets Platelet Satelliting Plt Morphology Comment RBC Morphology Dimorphic RBCs Polychromasia Hypochromasia Poikilocytosis Anisocytosis Microcytosis Macrocytosis Spherocytes Pappenheimer Bodies Sickle Cells Target Cells Tear Drop Cells Ovalocytes Helmet Cells Ewing-[place] Bodies [place] Rings Tanya Cells Bite Cells Crenated Cell Elliptocytes Acanthocytes (Spur) Rouleaux Hemoglobin C Crystals Schistocytes Malaria parasites David Bodies Hem Pathologist Commnt PT 21.7 H INR 1.94 H APTT 28.8 Sodium Potassium Chloride Carbon Dioxide Anion Gap BUN Creatinine Estimated GFR BUN/Creatinine Ratio Glucose Calcium Phosphorus Magnesium Ammonia Medications & Allergies - Medications Allergies/Adverse Reactions: Allergies Sulfa (Sulfonamide Antibiotics) Allergy (Verified 08/07/13 09:05) Unknown Home Medications: Home Medications Medication Instructions Recorded Confirmed Last Taken Type Atenolol [Tenormin] 25 mg PO DAILY 08/07/13 04/17/19 04/16/19 History Folic Acid/Vit B Complex and C 400 mcg PO DAILY 08/07/13 04/17/19 04/16/19 History [B-Complex with Vit C Caplet] Furosemide [Lasix] 20 mg PO DAILY 08/07/13 04/17/19 04/16/19 History Spironolactone [Aldactone] 50 mg PO QDAY 08/07/13 04/17/19 04/16/19 History Pantoprazole [Protonix] 40 mg PO BID #60 tablet 04/24/19 Unknown Rx Rifaximin [Xifaxan] 550 mg PO BID tablet 04/24/19 Unknown Rx fentaNYL [Duragesic] 25 mcg TD Q3D patch 04/24/19 Unknown Rx Active Medications: Generic Name Dose Route Start Last Admin Trade Name Freq PRN Reason Stop Dose Admin Acetaminophen 650 mg 04/17/19 11:00 Tylenol PO Q4H PRN Pain MILD(1-3)/Fever >100.5/TILLMAN Fentanyl 25 mcg 04/21/19 15:00 04/21/19 15:06 Duragesic TD 25 mcg Q3D TIFFANY Administration Hydromorphone HCl 0.5 mg 04/21/19 14:17 04/22/19 13:07 Dilaudid IV 0.5 mg Q3H PRN Administration Pain, Moderate (4-6) Octreotide Acetate 500 mcg/ 101 mls @ 5.05 mls/hr 04/17/19 10:00 04/23/19 14:26 Sodium Chloride IV 04/24/19 23:59 25 mcg/hr TITR TIFFANY 5.05 mls/hr Administration Protocol 25 MCG/HR Dextrose 1,000 mls @ 42 mls/hr 04/22/19 12:00 D5w IV DIRECT TIFFANY Lactulose 200 gm 04/23/19 10:00 04/23/19 22:38 Cephulac AL 200 gm BID TIFFANY Administration Lorazepam 1 mg 04/22/19 15:39 04/23/19 14:25 Ativan IV 1 mg Q4H PRN Administration Agitation Ondansetron HCl 4 mg 04/17/19 11:00 04/18/19 08:51 Zofran IV 4 mg Q8H PRN Administration Nausea And Vomiting Pantoprazole Sodium 40 mg 04/20/19 22:00 04/23/19 22:38 Protonix IV 40 mg BID TIFFANY Administration Rifaximin 550 mg 04/19/19 22:00 04/23/19 22:38 Xifaxan PO Not Given BID TIFFANY Sodium Chloride 10 ml 04/17/19 11:00 04/23/19 22:38 Sodium Chloride Flush Syringe 10 Ml IV 10 ml BID TIFFANY Administration Sodium Chloride 10 ml 04/17/19 11:00 Sodium Chloride Flush Syringe 10 Ml IV PRN PRN LINE FLUSH
--- NOTE | 2019-04-24 09:17 | Progress Note ---
Hospitalist Physical - Constitutional Vitals: Temp Pulse Resp BP Pulse Ox 98.4 F 93 H 15 114/47 98 04/24/19 08:00 04/24/19 08:00 04/24/19 08:00 04/24/19 08:00 04/24/19 08:00 General appearance: Present: cachectic, other (altered mental status, A&O x 0 ) Results - Labs CBC & Chem 7: 04/24/19 04:23 04/24/19 04:23 Labs: Laboratory Last Values WBC 14.7 K/mm3 (4.5-11.0) H 04/24/19 04:23 RBC 2.56 M/mm3 (3.65-5.03) L 04/24/19 04:23 Hgb 9.1 gm/dl (10.1-14.3) L 04/24/19 04:23 Hct 27.3 % (30.3-42.9) L 04/24/19 04:23 MCV 107 fl (79-97) H 04/24/19 04:23 MCH 36 pg (28-32) H 04/24/19 04:23 MCHC 33 % (30-34) 04/24/19 04:23 RDW 17.5 % (13.2-15.2) H 04/24/19 04:23 Plt Count 58 K/mm3 (140-440) L 04/24/19 04:23 [place] % (Auto) Senior Field Service Engineer 04/18/19 03:24 Add Manual Diff Complete 04/24/19 04:23 Total Counted 100 04/24/19 04:23 Seg Neuts % (Manual) 86.0 % (40.0-70.0) H 04/24/19 04:23 Band Neutrophils % 0 % 04/24/19 04:23 Lymphocytes % (Manual) 10.0 % (13.4-35.0) L 04/24/19 04:23 Reactive Lymphs % (Man) 0 % 04/24/19 04:23 Monocytes % (Manual) 2.0 % (0.0-7.3) 04/24/19 04:23 Eosinophils % (Manual) 1.0 % (0.0-4.3) 04/24/19 04:23 Basophils % (Manual) 0 % (0.0-1.8) 04/24/19 04:23 Metamyelocytes % 1.0 % 04/24/19 04:23 Myelocytes % 0 % 04/24/19 04:23 Promyelocytes % 0 % 04/24/19 04:23 Blast Cells % 0 % 04/24/19 04:23 Nucleated RBC % 12.0 % (0.0-0.9) H 04/24/19 04:23 Seg Neutrophils # Man 13.2 K/mm3 (1.8-7.7) H 04/24/19 04:23 Band Neutrophils # 0.0 K/mm3 04/24/19 04:23 Lymphocytes # (Manual) 1.5 K/mm3 (1.2-5.4) 04/24/19 04:23 Abs React Lymphs (Man) 0.0 K/mm3 04/24/19 04:23 Monocytes # (Manual) 0.3 K/mm3 (0.0-0.8) 04/24/19 04:23 Eosinophils # (Manual) 0.2 K/mm3 (0.0-0.4) 04/24/19 04:23 Basophils # (Manual) 0.0 K/mm3 (0.0-0.1) 04/24/19 04:23 Metamyelocytes # 0.2 K/mm3 04/24/19 04:23 Myelocytes # 0.0 K/mm3 04/24/19 04:23 Promyelocytes # 0.0 K/mm3 04/24/19 04:23 Blast Cells # 0.0 K/mm3 04/24/19 04:23 WBC Morphology Not Reportable 04/24/19 04:23 Hypersegmented Neuts Not Reportable 04/24/19 04:23 Hyposegmented Neuts Not Reportable 04/24/19 04:23 Hypogranular Neuts Not Reportable 04/24/19 04:23 Smudge Cells Not Reportable 04/24/19 04:23 Toxic Granulation Not Reportable 04/24/19 04:23 Toxic Vacuolation Not Reportable 04/24/19 04:23 Dohle Bodies Not Reportable 04/24/19 04:23 Pelger-Huet Anomaly Not Reportable 04/24/19 04:23 Alicia Rods Not Reportable 04/24/19 04:23 Platelet Estimate Consistent w auto 04/24/19 04:23 Clumped Platelets Not Reportable 04/24/19 04:23 Plt Clumps, EDTA Not Reportable 04/24/19 04:23 Large Platelets Not Reportable 04/24/19 04:23 Giant Platelets Not Reportable 04/24/19 04:23 Platelet Satelliting Not Reportable 04/24/19 04:23 Plt Morphology Comment Not Reportable 04/24/19 04:23 RBC Morphology Not Reportable 04/24/19 04:23 Dimorphic RBCs Not Reportable 04/24/19 04:23 Polychromasia Few 04/24/19 04:23 Hypochromasia Not Reportable 04/24/19 04:23 Poikilocytosis Not Reportable 04/24/19 04:23 Anisocytosis Not Reportable 04/24/19 04:23 Microcytosis Not Reportable 04/24/19 04:23 Macrocytosis Few 04/24/19 04:23 Spherocytes Not Reportable 04/24/19 04:23 Pappenheimer Bodies Not Reportable 04/24/19 04:23 Sickle Cells Not Reportable 04/24/19 04:23 Target Cells Few 04/24/19 04:23 Tear Drop Cells Not Reportable 04/24/19 04:23 Ovalocytes Not Reportable 04/24/19 04:23 Helmet Cells Not Reportable 04/24/19 04:23 [place] Bodies Not Reportable 04/24/19 04:23 [place] Rings Not Reportable 04/24/19 04:23 Tanya Cells Not Reportable 04/24/19 04:23 Bite Cells Not Reportable 04/24/19 04:23 Crenated Cell Not Reportable 04/24/19 04:23 Elliptocytes Not Reportable 04/24/19 04:23 Acanthocytes (Spur) Not Reportable 04/24/19 04:23 Rouleaux Not Reportable 04/24/19 04:23 Hemoglobin C Crystals Not Reportable 04/24/19 04:23 Schistocytes Not Reportable 04/24/19 04:23 Malaria parasites Not Reportable 04/24/19 04:23 David Bodies Not Reportable 04/24/19 04:23 Hem Pathologist Commnt No 04/24/19 04:23 PT 21.7 Sec. (12.2-14.9) H 04/24/19 04:23 INR 1.94 (0.87-1.13) H 04/24/19 04:23 APTT 28.8 Sec. (24.2-36.6) 04/24/19 04:23 Sodium 153 mmol/L (137-145) H 04/24/19 04:23 Potassium 4.2 mmol/L (3.6-5.0) 04/24/19 04:23 Chloride 113.9 mmol/L (98-107) H 04/24/19 04:23 Carbon Dioxide 26 mmol/L (22-30) 04/24/19 04:23 Anion Gap 17 mmol/L 04/24/19 04:23 BUN 94 mg/dL (7-17) H 04/24/19 04:23 Creatinine 2.3 mg/dL (0.7-1.2) H 04/24/19 04:23 Estimated GFR 25 ml/min 04/24/19 04:23 BUN/Creatinine Ratio 41 % 04/24/19 04:23 Glucose 147 mg/dL (65-100) H 04/24/19 04:23 POC Glucose 151 (70-105) H 04/22/19 18:11 Calcium 9.3 mg/dL (8.4-10.2) 04/24/19 04:23 Phosphorus 4.50 mg/dL (2.5-4.5) 04/24/19 04:23 Magnesium 4.10 mg/dL (1.7-2.3) H 04/24/19 04:23 Total Bilirubin 7.20 mg/dL (0.1-1.2) H 04/19/19 10:00 AST 2652 units/L (5-40) H 04/19/19 10:00 ALT 6196 units/L (7-56) H 04/19/19 10:00 Alkaline Phosphatase 340 units/L (35-129) H 04/19/19 10:00 Ammonia 34.0 umol/L (25-60) 04/24/19 04:23 Total Protein 5.5 g/dL (6.3-8.2) L 04/19/19 10:00 Albumin 3.2 g/dL (3.9-5) L 04/19/19 10:00 Albumin/Globulin Ratio 1.4 % 04/19/19 10:00 Lipase 69 units/L (13-60) H 04/17/19 07:32 Urine Color Yellow (Yellow) 04/17/19 10:50 Urine Turbidity Clear (Clear) 04/17/19 10:50 Urine pH 6.0 (5.0-7.0) 04/17/19 10:50 Ur Specific [place] 1.006 (1.003-1.030) 04/17/19 10:50 Urine Protein <15 mg/dl mg/dL (Negative) 04/17/19 10:50 Urine Glucose (UA) >=500 mg/dL (Negative) 04/17/19 10:50 Urine Ketones Neg mg/dL (Negative) 04/17/19 10:50 Urine Blood Mod (Negative) 04/17/19 10:50 Urine Nitrite Neg (Negative) 04/17/19 10:50 Urine Bilirubin Neg (Negative) 04/17/19 10:50 Urine Urobilinogen < 2.0 mg/dL (<2.0) 04/17/19 10:50 Ur Leukocyte Esterase Lg (Negative) 04/17/19 10:50 Urine WBC (Auto) 25.0 /HPF (0.0-6.0) H 04/17/19 10:50 Urine RBC (Auto) 6.0 /HPF (0.0-6.0) 04/17/19 10:50 U Epithel Cells (Auto) 1.0 /HPF (0-13.0) 04/17/19 10:50 Urine Bacteria (Auto) 1+ /HPF (Negative) 04/17/19 10:50 Urine Mucus Few /HPF 04/17/19 10:50 Fluid Type Ascitic 04/18/19 Unknown Fluid Color Yellow 04/18/19 Unknown Fluid Appearance Cloudy 04/18/19 Unknown Fluid WBC 65 /mm3 04/18/19 Unknown Fluid RBC 125 /mm3 04/18/19 Unknown Fluid Diff Comment 04/18/19 Unknown Fluid Seg Neutrophils 29.0 % 04/18/19 Unknown Fluid Lymphocytes 43.0 % 04/18/19 Unknown Fluid Reactive Lymphs 6.0 % 04/18/19 Unknown Fluid Monocytes 22.0 % 04/18/19 Unknown Fluid Eosinophils Not Reportable 04/18/19 Unknown Fluid Basophils Not Reportable 04/18/19 Unknown Hepatitis A IgM Ab Non-reactive (NonReactive) 04/18/19 10:50 Hep Bs Antigen Non-reactive (Negative) 04/18/19 10:50 Hep B Core IgM Ab Non-reactive (NonReactive) 04/18/19 10:50 Hepatitis C Antibody Reactive (NonReactive) A 04/18/19 10:50 Blood Type O POSITIVE 04/21/19 12:54 Antibody Screen Negative 04/21/19 12:54 Crossmatch See Detail 04/21/19 12:54 Active Medications - Current Medications Current Medications: Generic Name Dose Route Start Last Admin Trade Name Freq PRN Reason Stop Dose Admin Acetaminophen 650 mg 04/17/19 11:00 Tylenol PO Q4H PRN Pain MILD(1-3)/Fever >100.5/TILLMAN Fentanyl 25 mcg 04/21/19 15:00 04/21/19 15:06 Duragesic TD 25 mcg Q3D TIFFANY Administration Hydromorphone HCl 0.5 mg 04/21/19 14:17 04/22/19 13:07 Dilaudid IV 0.5 mg Q3H PRN Administration Pain, Moderate (4-6) Octreotide Acetate 500 mcg/ 101 mls @ 5.05 mls/hr 04/17/19 10:00 04/23/19 14:26 Sodium Chloride IV 04/24/19 23:59 25 mcg/hr TITR TIFFANY 5.05 mls/hr Administration Protocol 25 MCG/HR Dextrose 1,000 mls @ 42 mls/hr 04/22/19 12:00 D5w IV DIRECT TIFFANY Lactulose 200 gm 04/23/19 10:00 04/23/19 22:38 Cephulac HI 200 gm BID TIFFANY Administration Lorazepam 1 mg 04/22/19 15:39 04/23/19 14:25 Ativan IV 1 mg Q4H PRN Administration Agitation Ondansetron HCl 4 mg 04/17/19 11:00 04/18/19 08:51 Zofran IV 4 mg Q8H PRN Administration Nausea And Vomiting Pantoprazole Sodium 40 mg 04/20/19 22:00 04/23/19 22:38 Protonix IV 40 mg BID TIFFANY Administration Rifaximin 550 mg 04/19/19 22:00 04/23/19 22:38 Xifaxan PO Not Given BID TIFFANY Sodium Chloride 10 ml 04/17/19 11:00 04/23/19 22:38 Sodium Chloride Flush Syringe 10 Ml IV 10 ml BID TIFFANY Administration Sodium Chloride 10 ml 04/17/19 11:00 Sodium Chloride Flush Syringe 10 Ml IV PRN PRN LINE FLUSH Nutrition/Malnutrition Assess - Dietary Evaluation Nutrition/Malnutrition Findings: Nutrition Notes Start: 04/18/19 12:01 Freq: Status: Active Protocol: Document 04/22/19 11:16 OH (Rec: 04/22/19 11:28 OH [id number]) Nutrition Notes Initial or Follow up Reassessment Other Pertinent Diagnosis Liver Cirrhosis, Hepatitis C, Ascites Current Diet Clear Liquid Diet Labs/Tests K+ 4.3 Na 148 Pertinent Medications Lactulose Height 5 ft 1 in Weight 55.6 kg [place] Body Weight (kg) 47.72 BMI 23.1 Subjective/Other Information Pt. lying in bed with daughters at bedside. Pt. non verbal while in room. Daughter was cleaning mouth. PICC LINE recently placed for pt to receive PRBC transfusion. Per daughter pt hasn't been consuming much if any fluid/ nutrition over the past 24 hours. No n/v per daughter. Pt . w/hx of po ONS. Per family Justin not realistic regarding medical fraility of patient. MD not willing to place PEG at this time secondary to varices/co morbidities. TPN also a concern as liver involved with metabolizing TPN and pt with liver failure/ascites. Pt. w/ significant hx of ascites, 6.6 L removed from patient since hospitalization. Percent of energy/protein needs met: <10% Burn Absent Trauma Absent Current % PO Negligible Is Patient Ambulatory and/or Out of Bed No REE-([facility]-confined to bed) 1210.296 Kcal/Kg value to use for calculation 30 Approximate Energy Requirements Using 1668 kcal/Kg Additional Notes Pro: 63 - 76 g (1-1.2 g/kg) Fluid: 1kcal/ml Nutrition Intervention Change Diet Order: Continue clear liquid Add Supplement/Snack (indicate name/kcal Ensure Clear Apple and Mixed /protein ) [place] BID Provides kCal: 480 Provides Protein (gm) 16 Follow-Up By: 04/24/19 Additional Comments f/u on diet advancement/ feeding plan
[2019-04-24] MEDS: OCTREOTIDE 500 MCG in SODIUM CHLORIDE 0.9% 100 ML IV SCH (09:19)
[2019-04-24] MEDS: PANTOPRAZOLE 40 MG INJ IV SCH (09:21)
[2019-04-24] MEDS: LACTULOSE ENEMA 1000 ML PR SCH ×2 (09:33→11:43)
[2019-04-24] MEDS: RIFAXIMIN 550 MG TAB PO SCH (09:34)
[2019-04-24] MEDS: LORazepam 2 MG/ML VIAL IV PRN (11:46)
--- NOTE | 2019-04-24 11:50 | Event Note ---
Date: 04/24/19 Patient's family wishes for pt to be discharged with home hospice. Will sign off, please call as needed or with questions.
--- NOTE | 2019-04-24 11:54 | Discharge Summary ---
Providers - Providers Date of Admission: 04/17/19 08:47 Date of discharge: 04/24/19 Attending physician: JERARDO HOWARD 04/17/19 08:31 Consult to Physician [CONS] Urgent Comment: Consulting Provider: MARIANA CASTELLON Physician Instructions: Reason For Exam: melena, vomiting blood, cirrhosis 04/18/19 07:15 Consult to Physician [CONS] Routine Comment: Consulting Provider: SG BALDERAS Physician Instructions: Reason For Exam: [place] and high K 04/21/19 14:16 Consult to PICC Line RN [CONS] Routine Reason For Exam: needs access/critically ill Type Line:: PICC 04/21/19 14:19 Consult to PICC Line RN [CONS] Stat Reason For Exam: poor iv access Type Line:: PICC 04/22/19 13:53 Consult to Physician [CONS] Routine Comment: Consulting Provider: STARR VALLEJO Physician Instructions: Reason For Exam: hcc 04/22/19 14:04 Consult to Physician [CONS] Routine Comment: Consulting Provider: MICHAEL ROBERTSON Physician Instructions: Reason For Exam: Cold, blue RUE Primary care physician: CANDELARIA GRANT Hospitalization Condition: Poor Hospital course: Patient is 73-year-old woman with history of hep C, cirrhosis, hepatocellular carcinoma. The patient has chronic ascites and gets frequent paracentesis, last paracentesis was 04/01/2019, was due for another on day of admission. She presented with hemoptysis and melena. She was seen and evaluated in ED and admitted. Patient was evaluated by GI and Oncology. EGD done on 04/27/19 showed esophageal varices. MRI abdomen showed cirrhosis, extensive hepatocellular carcinoma, right lung mass likely metasases. She developed acute kidney injury and was seen by Nephrology. She also had acute right upper extremity ischemia but could not anticoagulate because of GI bleed. Patient was critically ill and had poor prognosis, so hospice was recommended. Family decided on hospice and she was discharged to home hospice on 04/24/19 Acute limb/right upper extremity Right upper extremity is cold and blue with poor pulses. cannot anticoagulate because of GI bleed -The patient has a very poor prognosis, vascular surgery consulted, evaluated Acute upper GI bleed/acute blood anemia Concern for variceal bleeding, GI consulted, evaluated patient PPI Twice daily, octreotide ggt, sp EGD 04/17 showed esophageal varices, they were not actively bleeding, they were banded. Transfused 1 Unit PRBC for Hgb 7.3 -Portal hypertension, could not tolerate beta-michael. HCC Likely metastatic to lung, with right lung base mass Prognosis is very poor, Hospice recommended to patient's family members -Discussed with Dr. Zavala. Patient had right lung mass and liver lesions from [facility] in January of this year. Apparently family were made aware, they were referred to transplant/hepatology oncology,. It appears that the patient was lost to follow-up. She was seen and evaluated in ED Hepatitis C/cirrhosis/decompensated liver disease Ascites sp paracentesis 04/19, 6.6 L removed, ascites already reaccumulating acute Hepatic encephalopathy Unable to tolerate oral lactulose, Acute metabolic encephalopathy and progression of extensive cancer PINO likely due to vasomotor nephropathy Hyperkalemia, s/p Insulin and D50, resolved -Nephrology consult appreciated Hypernatremia This is because the patient is dehydrated, she has not been able to tolerate p.o. for several days due to mental status. P Severe malnutrition Patient is not eating, she is refusing everything and is very restless and appears to be in pain. Avoid NG tube given multiple varices DVT prophylaxis; SCDs and early ambulation in light of GI bleed. Total time spent on discharge, 42 mins Disposition: DC-50 TO HOSPICE (HOME) - Discharge Diagnoses (1) Hepatocellular carcinoma Status: Acute (2) Vasomotor nephropathy Status: Acute (3) Acute kidney injury Status: Acute (4) Ascites Status: Acute (5) GI bleed Status: Acute (6) Liver mass Status: Acute (7) Melena Status: Acute (8) Vomiting blood Status: Acute (9) Cirrhosis Status: Chronic (10) Hepatitis C Status: Chronic Qualifiers: Viral hepatitis chronicity: chronic (11) Thrombocytopenia Status: Chronic (12) Hyperkalemia Status: Acute (13) Hypernatremia Status: Acute (14) Severe malnutrition Status: Acute Core Measure Documentation - Palliative Care Palliative Care/ Comfort Measures: Hospice Care - Core Measures Any of the following diagnoses?: none Exam - Constitutional Vitals: Temp Pulse Resp BP Pulse Ox 98.4 F 93 H 15 114/47 98 04/24/19 08:00 04/24/19 08:00 04/24/19 08:00 04/24/19 08:00 04/24/19 08:00 Plan Activity: advance as tolerated Diet: other (Full liquid diet) Plan of Treatment: 1.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
[2019-04-24 14:46] VITALS: BP 101/49
--- NOTE | 2019-04-25 03:44 | Consultation ---
REFERRED BY: Dr. German. REASON FOR CONSULTATION: HCC. HISTORY OF PRESENT ILLNESS: I saw the patient, a 73-year-old female in the ICU. The patient was admitted on 04/17/2019. The patient's son was present in the room. The patient has a history of hepatitis C cirrhosis. She has been having abdominal distention, melena and hematemesis. The patient was on monthly paracentesis for ascites. She had dark stools and 1 hematemesis. As per the information, hepatocellular carcinoma suspected on CT in January. The patient was asked to see Dr. Morris. The patient has been following Dr. Estes with [facility]. At this time, the patient is agitated. During this admission, the patient was seen by GI team, Nephrology team. For the recent bleed, Octreotide was used; for hepatic encephalopathy Lactulose was used. Radiology showed numerous liver lesions. Blood test showed alpha fetoprotein to be high as per the GI note. The patient was also found to have lung lesions. PAST MEDICAL HISTORY: As above. ALLERGIES: SULFA. HOME MEDICATIONS: Include aspirin, B complex, spironolactone. SOCIAL HISTORY: Former smoker, former alcohol usage. PHYSICAL EXAMINATION: VITAL SIGNS: Temperature 96, pulse 86, respirations 16, BP 102/46. HEENT: Mild pallor, icterus present. GENERAL: The patient is agitated. HEART: S1, S2. LUNGS: Clear to auscultation. ABDOMEN: Soft. LABORATORY DATA: White cell 16, hemoglobin 8.8, MCV 105, platelets 74. Potassium 5, creatinine 2.9, calcium 9, bilirubin was high. RADIOLOGY: MRI was done. Dopplers were done. MRI showed cirrhosis, extensive multifocal HCC, right lower lobe pleural based mass, worrisome for new splenic infarct and enhancing portal vein tumor thrombus. Doppler of her upper extremity shows positive DVT in the right brachial vein and radial vein. ASSESSMENT: 1. Multifocal hepatocellular carcinoma as per the information in the chart. Alpha fetoprotein is raised. We will try to find the value. 2. History of cirrhosis. 3. Portal vein tumor. 4. Deep venous thrombosis in the brachial vein. 5. Hepatic encephalopathy. 6. History of variceal bleed. PLAN: 1. The patient's performance status is not good. As per the information, HCC was suspected in January and the patient was advised to see ____. If and when her performance status improves outpatient followup for her HCC is an option, otherwise hospice is an option. 2. For the DVT, we will not anticoagulate because of thrombocytopenia and history of bleeding. 3. Renal impairment. 4. Abnormal bilirubin and LFTs due to cirrhosis. I will follow the patient during her inpatient stay. JOB# [id number] NM/NTS
[2019-04-29 06:55] LABS: Total Protein,Body Fluid < 3.0 (15.0-45.0)
[2019-04-29 06:56] LABS: LDH,Body Fluid 69
== END 2019-04-24 15:07 | disposition hospice, home (50) | DRG 441 ==
LOC: ED 07:14 → IMCU 08:47
PROVIDERS: ADMIT Internal Medicine; ATTEND Internal Medicine
PROC: 06L38CZ Occlusion of Esophageal Vein with Extraluminal Device, Via Natural or Artificial Opening Endoscopic (ICD-10-PCS; principal; 2019-04-17)
PROC: 0W9G3ZZ Drainage of Peritoneal Cavity, Percutaneous Approach (ICD-10-PCS; 2019-04-19)
PROC: 30233N1 Transfusion of Nonautologous Red Blood Cells into Peripheral Vein, Percutaneous Approach (ICD-10-PCS; 2019-04-21)
PROC: 02HV33Z Insertion of Infusion Device into Superior Vena Cava, Percutaneous Approach (ICD-10-PCS; 2019-04-21)
DX: K72.00 Acute and subacute hepatic failure without coma (principal); N17.0 Acute kidney failure with tubular necrosis; E43 Unspecified severe protein-calorie malnutrition; G93.41 Metabolic encephalopathy; I85.11 Secondary esophageal varices with bleeding; E87.1 Hypo-osmolality and hyponatremia; D62 Acute posthemorrhagic anemia; C22.0 Liver cell carcinoma; C78.01 Secondary malignant neoplasm of right lung; E72.20 Disorder of urea cycle metabolism, unspecified; I82.621 Acute embolism and thrombosis of deep veins of right upper extremity; E87.0 Hyperosmolality and hypernatremia; K70.31 Alcoholic cirrhosis of liver with ascites; I48.91 Unspecified atrial fibrillation; B18.2 Chronic viral hepatitis C; Z51.5 Encounter for palliative care; E87.5 Hyperkalemia; I48.0 Paroxysmal atrial fibrillation; Z68.23 Body mass index [BMI] 23.0-23.9, adult; Z82.49 Family history of ischemic heart disease and other diseases of the circulatory system; Z88.2 Allergy status to sulfonamides; Z79.82 Long term (current) use of aspirin; Z79.899 Other long term (current) drug therapy; Z87.891 Personal history of nicotine dependence
CPT/HCPCS: 36415; 49083; 71045; 71260; 74183; 80048; 80053; 80074; 81001; 82040; 82106; 82140; 82271; 82962; 83605; 83690; 83735; 84100; 84160; 85007; 85014; 85018; 85025; 85027; 85610; 85730; 86850; 86900; 86901; 86920; 87086; 87116; 88112; 88305; 88341; 88342; 89051; 93005; 93010; 94644; G0378; A9577; C9113; J0610; J0696; J1170; J1815; J1940; J2060; J2270; J2354; J2370; J2405; J7030; J7040; J7070; P9016; P9047; Q9967

== ENCOUNTER 2019-04-26 02:55 | Emergency (ER) | payer MEDICARE ==
[~2019-04-26 02:55] MED LIST: CALCIUM CHLORIDE 1,000 MG/10 ML SYRINGE IV ONE; EPINEPHrine 1:10,000 1 MG/10 ML SYRINGE ONE
--- NOTE | 2019-04-26 03:07 | Emergency Department Report ---
ED CPR HPI - General Chief Complaint: Cardiac Arrest/CPR Stated Complaint: CARDIAC ARREST Time Seen by Provider: 04/26/19 02:59 Source: family, EMS (verbal report received from EMS.ems notes not available at time of chart dictation), RN notes reviewed, old records reviewed Mode of arrival: Stretcher Limitations: Altered Mental Status, Physical Limitation - History of Present Illness Initial Comments: This is a 73-year-old female, on home hospice, history of end-stage liver disease and cirrhosis, brought to the hospital by emergency medical services as normal nontraumatic cardiac arrest. EMS received call for patient "taking her last breath." EMS reports approximately 25 minutes in transport time from their initial medical contact to the emergency room. During this time, the patient is asystolic, not breathing, and receiving high-quality CPR. Upon arrival to the emergency room, the patient is pulseless, in asystole, pupils midpoint and d ilated, and did not react to light. Patient received standard ACLS interventions. She receives high-quality CPR. Unfortunately, pulses are not able to be obtained. Resuscitation efforts are terminated secondary to prolonged down time, and medical futility. Her family was subsequently informed. MD Complaint: collapsed during rest -: minute(s) Place: home Bystander CPR Performed: Yes Initial Findings in the Field: no pulse ROSC in the Field: No Associated Injuries: No Associated Symptoms: shortness of breath Treatments Prior to Arrival: BMV, chest compressions - Related Data Home Medications Medication Instructions Recorded Confirmed Last Taken Atenolol [Tenormin] 25 mg PO DAILY 08/07/13 04/17/19 04/16/19 Folic Acid/Vit B Complex and C 400 mcg PO DAILY 08/07/13 04/17/19 04/16/19 [B-Complex with Vit C Caplet] Furosemide [Lasix] 20 mg PO DAILY 08/07/13 04/17/19 04/16/19 Spironolactone [Aldactone] 50 mg PO QDAY 08/07/13 04/17/19 04/16/19 Previous Rx's Medication Instructions Recorded Last Taken Type Pantoprazole [Protonix] 40 mg PO BID #60 tablet 04/24/19 Unknown Rx Rifaximin [Xifaxan] 550 mg PO BID tablet 04/24/19 Unknown Rx fentaNYL [Duragesic] 25 mcg TD Q3D patch 04/24/19 Unknown Rx Allergies Allergy/AdvReac Type Severity Reaction Status Date / Time Sulfa (Sulfonamide Allergy Unknown Verified 08/07/13 09:05 Antibiotics) ED Review of Systems ROS: Stated complaint: CARDIAC ARREST Other details as noted in HPI Comment: Unobtainable due to pts medical conditions ED Past Medical Hx - Past Medical History Hx Hypertension: No Hx Heart Attack/AMI: No Hx Congestive Heart Failure: No Hx Diabetes: No Hx Deep Vein Thrombosis: (unknown) Hx Liver Disease: Yes (hepatitis c and ascites) Hx Renal Disease: No Hx Seizures: No Hx Asthma: No Hx COPD: No Hx HIV: No Additional medical history: atrial fib. - Surgical History Hx Pacemaker: No Hx Internal Defibrillator: No Additional Surgical History: hernia repair - Social History Smoking Status: Never Smoker - Medications Home Medications: Home Medications Medication Instructions Recorded Confirmed Last Taken Type Atenolol [Tenormin] 25 mg PO DAILY 08/07/13 04/17/19 04/16/19 History Folic Acid/Vit B Complex and C 400 mcg PO DAILY 08/07/13 04/17/19 04/16/19 History [B-Complex with Vit C Caplet] Furosemide [Lasix] 20 mg PO DAILY 08/07/13 04/17/19 04/16/19 History Spironolactone [Aldactone] 50 mg PO QDAY 08/07/13 04/17/19 04/16/19 History Pantoprazole [Protonix] 40 mg PO BID #60 tablet 04/24/19 Unknown Rx Rifaximin [Xifaxan] 550 mg PO BID tablet 04/24/19 Unknown Rx fentaNYL [Duragesic] 25 mcg TD Q3D patch 04/24/19 Unknown Rx ED Physical Exam - General Limitations: Altered Mental Status General appearance: obtunded, other (non verbal gcs 3) - Head Head exam: Present: atraumatic - Eye Eye exam: Present: scleral icterus - ENT ENT exam: Present: mucous membranes dry - Neck Neck exam: Present: normal inspection - Respiratory Respiratory exam: Absent: normal lung sounds bilaterally - Cardiovascular Cardiovascular Exam: Present: other (pulseless). Absent: regular rate - GI/Abdominal GI/Abdominal exam: Present: soft, other (fluid wave noted) - Extremities Exam Extremities exam: Present: normal inspection - Back Exam Back exam: Present: normal inspection - Neurological Exam Neurological exam: Present: altered, other (non verbal) - Psychiatric Psychiatric exam: Present: other (non verbal gcs 3) - Skin Skin exam: Present: dry ED Course Vital Signs 04/26/19 02:55 Pulse Rate 0 L Respiratory 0 L Rate Blood Pressure 00/00 [Left] ED Medical Decision Making - Lab Data Vital Signs 04/26/19 02:55 Pulse Rate 0 L Respiratory 0 L Rate Blood Pressure 00/00 [Left] - Medical Decision Making differential diagnosis, including but not limited to: Pulmonary embolism, hemorrhagic shock, acute coronary syndrome, spontaneous bacterial peritonitis, natural history of end-stage liver disease Critical care attestation.: If time is entered above; I have spent that time in minutes in the direct care of this critically ill patient, excluding procedure time. ED Disposition Clinical Impression: Cardiac arrest Disposition: DC-20 Is pt being admited?: No Does the pt Need Aspirin: No Condition: Undetermined
[2019-04-26 03:28] VITALS: BP 00/00
[2019-04-26] MEDS ORDERED: MAGNESIUM SULFATE 1 GM/2ML (4 MEQ/1ML) INJ ONE (14:45)
== END 2019-04-26 05:30 ==
LOC: ED 02:55
DX: I46.9 Cardiac arrest, cause unspecified (principal); K74.60 Unspecified cirrhosis of liver; Z88.2 Allergy status to sulfonamides; Z79.899 Other long term (current) drug therapy
CPT/HCPCS: 99285; J0171; J3475